=== PATIENT | female | born 1945 | race Caucasian/White ===

== ENCOUNTER → 2019-12-19 | Outpatient (CLI) | payer MEDICARE, OTHER ==
--- NOTE | 2019-12-19 11:06 | CT ---
EXAMINATION TYPE: CT lumbar spine w con DATE OF EXAM: 12/19/2019 COMPARISON: Lumbar spine x-ray December 08, 2019 HISTORY: lumbago, post op complications, screws out of place CT DLP: 602.5 mGycm Automated exposure control for dose reduction was used. CONTRAST: CT scan of the lumbar is performed with IV Contrast, patient injected with 80 mL of Isovue 300. Enhanced CT of the lumbar spine was performed. Bone and soft tissue window settings are submitted as well as coronal and sagittal reconstructions. There are presumed bilateral hypoplastic T12 ribs. Given this assumption that there are 5 lumbar-type vertebra. There is sacralization of the left L5 segment. Slight levoconvex scoliotic curvature cente red at L3 level redemonstrated. There are posterior interpedicular rods and screws at L4-L5 level yony aterally with metallic intervertebral disc material. Slight grade 1 anterolisthesis L4 on L5 and slig htly more prominent grade 1 anterolisthesis L3 on L4. Vertebral body heights are preserved. There is sclerosis at the L4-L5 endplates. Superior left L4 screw transverses the superior L4 endplate extending into the left inferior aspect o f the C3-C4 disc there is inferior well-defined lucency suggesting it has superior displaced from the surgical track by roughly 2 mm sagittal image 35 for reference. Tiny sclerotic focus right anterior L4 vertebra presumed benign bone island sagittal image 23. Incidental mild to moderate disc space narrowing and anterior spurring at T12-L1 level. Review of axial images shows mild broad-based disc bulge mildly effacing anterior thecal sac at T12-L 1 level. Axial images at L1-L2 level are felt within normal limits. Axial images at L2-L3 level show [id number] broad disc bulge mildly effacing anterior thecal sa c. There is also moderate facet degenerative change bilaterally. There is mild bilateral anterior inf erior neural foraminal narrowing. Axial images at the L3-L4 level show spondylolisthesis with moderate broad-based posterior disc protr usion. There is moderate facet arthropathy bilaterally. There is effacement of the anterior and poste rior lateral thecal sac. There is moderate right and mild left-sided anterior inferior neural foramin al narrowing seen on sagittal images. Disc herniation comes in close proximity to the extraforaminal right L3 nerve axial image 48 and sagittal image 23. Axial images at the L4-L5 level show artifact from disc material and fusion hardware. Suboptimal eval uation noted. Bilateral neural foramina felt patent. Axial images at the L5-S1 level show moderate to severe right greater than left facet arthropathy. Sp inal canal is preserved. Bilateral neural foramina are thought patent. Moderate calcified plaque of the abdominal aorta extends into iliac branch vessels. There is thin-wal led 2.0 cm cyst lower pole left kidney. There is nonspecific subcentimeter hypodense lesion medially lower pole level right kidney. No suspicious enhancement or focal fluid collection noted. IMPRESSION: Abnormally positioned superior L4 screw into L3-L4 inferior disc. Other postsurgical and degenerative changes as detailed above.
== END | disposition home or self-care (01) ==
LOC: RADCTMAIN 09:47
PROVIDERS: ATTEND Orthopaedic Surgery
DX: M47.816 Spondylosis without myelopathy or radiculopathy, lumbar region (principal); R93.7 Abnormal findings on diagnostic imaging of other parts of musculoskeletal system; Z88.8 Allergy status to other drugs, medicaments and biological substances; Z98.1 Arthrodesis status
CPT/HCPCS: 82565; 84520; 72132; 36415; Q9967

== ENCOUNTER → 2020-01-13 | Outpatient (CLI) | payer MEDICARE, OTHER ==
[2020-01-13 12:54] LABS: Basophils # (A) 0.1 k/uL (0-0.2); Basophils % (A) 1 %; Eosinophils # (A) 0.1 k/uL (0-0.7); Eosinophils % (A) 1 %; HCT 42.1 % (34.0-46.0); HGB 13.4 gm/dL (11.4-16.0); Lymphocytes # (A) 1.5 k/uL (1.0-4.8); Lymphocytes % (A) 17 %; MCH 28.1 pg (25.0-35.0); MCHC 31.9 g/dL (31.0-37.0); Mean Platelet Volume 7.3; Monocytes # (A) 0.6 k/uL (0-1.0); Monocytes % (A) 6 %; Neutrophils # (A) 6.5 k/uL (1.3-7.7); Neutrophils % (A) 74 %; Platelet Count 321 k/uL (150-450); RBC 4.78 m/uL (3.80-5.40); RDW 15.1 % (11.5-15.5); WBC 8.8 k/uL (3.8-10.6)
[2020-01-13 20:44] LABS: INR <0.91 (0.90-1.11); Prothrombin Time <9.9 sec (9.9-11.9)
[2020-01-13 22:47] LABS: Anion Gap 10.2 mmol/L (4.00-12.00); Carbon Dioxide 29.8 mmol/L (21.6-31.8); Potassium 4.3 mmol/L (3.5-5.5)
== END | disposition home or self-care (01) ==
LOC: LABWHC1 11:46
PROVIDERS: ATTEND Orthopaedic Surgery
DX: Z01.818 Encounter for other preprocedural examination (principal); M43.16 Spondylolisthesis, lumbar region; Z79.01 Long term (current) use of anticoagulants
CPT/HCPCS: 36415; 80051; 85025; 85610; 87070

== ENCOUNTER 2020-01-19 07:59 | Day surgery (SDC) | payer MEDICARE, OTHER ==
[~2020-01-19 07:59] MED LIST: PREMYELOGRAM MEDICATION REVIEW 1 EACH MISC PO ONE
[2020-01-19] MEDS ORDERED: diazePAM 5 MG TAB PO ONE (08:30)
[2020-01-19 09:04] LABS: Glucose,Whole Blood 101 mg/dL (75-99)
[2020-01-19 11:01] VITALS: RESP 18
--- NOTE | 2020-01-19 11:03 | FL ---
EXAMINATION TYPE: FL myelogram lumbosacral DATE OF EXAM: 01/19/2020 COMPARISON: CT lumbar spine 12/19/2019 HISTORY: [employer] imaging of the lumbar spine demonstrates posterior fixation rods and transpedicular screws bila terally at L4-L5 with interbody spacer device. Informed consent was obtained and all the patient's questions were answered. The L2-L3 level was loc alized under fluoroscopy. Standard sterile technique was utilized as well as appropriate local anest hesia with 1% Lidocaine. Spinal needle was introduced into the thecal sac under fluoroscopic guidanc e and 5 mL's of Isovue-M 300 was injected. The patient tolerated the procedure well and left the dep artment in stable condition. CT myelography is to follow. Total fluoroscopy time 46 seconds Total images obtained 3 IMPRESSION: Successful myelography lumbar spine.
[2020-01-19 11:24] VITALS: TEMP 98.1
--- NOTE | 2020-01-19 11:54 | CT ---
EXAMINATION TYPE: CT lumbar spine w con DATE OF EXAM: 01/19/2020 COMPARISON: CT lumbar spine 12/19/2019 HISTORY: Lumbago CT DLP: 651.70 mGycm Automated exposure control for dose reduction was used. CONTRAST: CT scan of the lumbar is performed with intrathecal contrast. 5 cc of Isovue-M 300 were injected intr athecally utilizing fluoroscopic guidance. Enhanced CT of the lumbar spine was performed. Bone and soft tissue window settings are submitted as well as coronal and sagittal reconstructions. Disc heights are normal. No acute fracture or dislocation. There is L4-L5 bilateral posterior fixatio n rods with transpedicular screws and L4-L5 interbody spacer device. Grade 1 anterolisthesis of L4 on L5. No evidence of hardware fracture or significant loosening around the screws. The conus terminate s at the level of T12. Cauda equina are unremarkable. T12-L1: Disc space narrowing with vacuum disc phenomenon. Mild posterior bulge effaces the ventral th ecal sac. No central stenosis. No foraminal encroachment. L1-L2: Mild posterior bulge effaces the ventral thecal sac. No central stenosis. No evidence for fora phyllis encroachment. L2-L3: Mild posterior disc bulge and ligamentum flavum hypertrophy. Mild central stenosis. Facet arth ropathy. No evidence for foraminal encroachment. L3-L4: Grade 1 anterolisthesis of L3 on L4. Disc space narrowing. Moderate circumferential disc bulge . Moderate to severe central stenosis. Facet arthropathy. Mild left and moderate right foraminal encr oachment. L4-L5: Posterior fixation and interbody fusion changes with. 1 anterolisthesis of L4 on L5. Severe ce ntral stenosis. Facet arthropathy. Moderate right and moderate to severe left foraminal encroachment. L5-S1: Minimal disc space narrowing. No disc herniation protrusion or central stenosis. Facet arthro christine. No evidence for foraminal encroachment. Calcified atherosclerotic disease of the abdominal aorta. No abdominal aortic aneurysm. Right adnexal 1.6 x 1.8 cm cystic lesion. Decreased osseous mineralization. IMPRESSION: 1. Posterior fusion changes of L4-L5 with no evidence of hardware fracture. Grade 1 anterolisthesis o f L4 on L5. 2. Grade 1 anterolisthesis of L3 on L4. 3. Degenerative disc disease and facet arthropathy with varying degrees of multilevel central stenosi s and neural foramina narrowing. Moderate to severe L3-L4 central stenosis. Severe L4-L5 central sten osis. 4. Right adnexal 1.8 cm cystic lesion. Dedicated pelvic ultrasound is recommended.
[2020-01-19 13:00] VITALS: BP 100/46; PULSE 71
== END 2020-01-19 14:17 | disposition home or self-care (01) ==
LOC: RADPROMAIN 07:59 → 1SOBS 10:46 → RADPROMAIN 14:17
PROVIDERS: ATTEND Orthopaedic Surgery
DX: M43.16 Spondylolisthesis, lumbar region (principal); M51.16 Intervertebral disc disorders with radiculopathy, lumbar region; M47.26 Other spondylosis with radiculopathy, lumbar region; M48.061 Spinal stenosis, lumbar region without neurogenic claudication; Z98.1 Arthrodesis status; Z79.82 Long term (current) use of aspirin; Z79.899 Other long term (current) drug therapy; Z79.02 Long term (current) use of antithrombotics/antiplatelets; I48.91 Unspecified atrial fibrillation; J44.9 Chronic obstructive pulmonary disease, unspecified; I11.9 Hypertensive heart disease without heart failure; E78.00 Pure hypercholesterolemia, unspecified; Z90.710 Acquired absence of both cervix and uterus; Z98.890 Other specified postprocedural states; Z87.891 Personal history of nicotine dependence; Z80.0 Family history of malignant neoplasm of digestive organs; Z82.49 Family history of ischemic heart disease and other diseases of the circulatory system
CPT/HCPCS: 62304; 72132; J2001; Q9967

== ENCOUNTER 2020-01-27 07:30 | Inpatient (IN) | payer MEDICARE, OTHER ==
[2020-02-03] MEDS ORDERED: ACETAMINOPHEN TAB 500 MG TAB PO ONE (05:00)
[2020-02-03] MEDS ORDERED: GABAPENTIN 300 MG CAP PO ONE (05:00)
[2020-02-03] MEDS ORDERED: TRANEXAMIC ACID 1,000 MG in SODIUM CHLORIDE 0.9% 100 ML IVPB ONE ×4 (05:00)
[2020-02-03] MEDS ORDERED: fentaNYL (PF) 50 MCG/ML 2 ML AMP IV PRN (05:32)
[2020-02-03] MEDS ORDERED: HYDROmorphone 0.5 MG/0.5 ML SYRINGE IVP PRN (05:32)
[2020-02-03] MEDS ORDERED: ONDANSETRON 4 MG/2 ML VIAL IVP ONE ×2 (05:32→18:40)
[2020-02-03] MEDS: LACTATED RINGERS 1,000 ML IV SCH (11:34)
[2020-02-03] MEDS: fentaNYL (PF) 50 MCG/ML 2 ML AMP IVP ONE ×2 (12:11→12:45)
[2020-02-03] MEDS: MIDAZOLAM 2 MG/2 ML VIAL IVP ONE ×2 (12:11→13:00)
--- NOTE | 2020-02-03 12:19 | P.HPOR ---
History of Present Illness H&P Date: 02/03/20 Chief Complaint: Low back pain, LE weakness and pain This is a pleasant 74-year-old femalewho presents for evaluation of her low back. The patient states about a year ago she had surgery with Dr. Billingsley due to her spondylolisthesis and degenerative disc disease. She states she initially did well from the surgery but then had some increasing pain and low back, and she was found to have loose screws. At that time. They were planning on doing another surgery to fix this. However, the pandemic postponed this and then she was unable to follow-up with Dr. Billingsley as he was no longer with [facility]. She states pain in her low back and some pain that goes into her legs on the Left. She denies any bowel or bladder incontinence. Denies any perineal numbness/tingling. She states no f/c/sob/cp at this time. She returns with CT scan of the lumbar spine results.Patient notes lower back pain that radiates down her left leg. Patient notes tingling and numbness down her left lower extremity. Patient tried home exercises and had no resolution of symptoms due to unable to complete certain exercises. Patient takes Tylenol as needed. she did receive her computed tomography scan however this was not a myelogram for whatever reason and so we will have to schedule this with her.she denies any bowel or bladder incontinence. There is no perineal numbness or tingling. Review of Systems 14 points review of systems completed and as stated in HPI or otherwise negative. Past Medical History Past Medical History: COPD, CVA/TIA, Fibromyalgia, GERD/Reflux, Hyperlipidemia, Hypertension, Rheumatoid Arthritis (RA), Skin Disorder, Thyroid Disorder Additional Past Medical History / Comment(s): 2 TIA's, last one in 2019. "Sometimes can't get get word out that she wants to say." Psoriasis and Psoriatic Arthritis. Queenie's Thyroiditis. History of Any Multi-Drug Resistant Organisms: None Reported Past Surgical History: Appendectomy, Heart Catheterization With Stent, Hysterectomy, Orthopedic Surgery, Tonsillectomy Additional Past Surgical History / Comment(s): 3 cardiac stents, metal plate in lower jaw, right shoulder rotator cuff repair, bilateral thumb joints replaced, carpal tunnel release left hand, cyst removed from left hand, bilateral buni onectomy, shore neuroma left foot, bilateral cataract surgery. Past Anesthesia/Blood Transfusion Reactions: Postoperative Nausea & Vomiting (PONV) Date of Last Stent Placement:: 2016, 2018 Past Psychological History: Anxiety, Depression Additional Psychological History / Comment(s): Obsessive compulsive disorder. Smoking Status: Former smoker Past Alcohol Use History: Rare Additional Past Alcohol Use History / Comment(s): Quit smoking 2001. Past Drug Use History: None Reported - Past Family History Mother Family Medical History: Cancer, Pulmonary Embolus Additional Family Medical History / Comment(s): Liver cancer. Father Family Medical History: Cancer Additional Family Medical History / Comment(s): Lung Cancer. Brother(s) Family Medical History: Cancer Additional Family Medical History / Comment(s): Prostate Cancer. Sister(s) Family Medical History: Cancer Additional Family Medical History / Comment(s): 2 of 3 sister's had cancer. Medications and Allergies Home Medications Medication Instructions Recorded Confirmed Type Abatacept/Maltose [Orencia] 0 mg IVPB DIRECTED 01/06/20 02/03/20 History Arformoterol Tartrate [Brovana] 15 mcg INHALATION BID 01/06/20 02/03/20 History Ascorbic Acid [Vitamin C] 500 mg PO DAILY 01/06/20 02/03/20 History Aspirin [Gay Aspirin EC] 81 mg PO DAILY 01/06/20 02/03/20 History Atorvastatin [Lipitor] 80 mg PO HS 01/06/20 02/03/20 History Black Cohosh 40 mg PO DAILY 01/06/20 02/03/20 History Calcium Carbonate [Calcium] 600 mg PO BID 01/06/20 02/03/20 History Clopidogrel [Plavix] 75 mg PO DAILY 01/06/20 02/03/20 History Diltiazem HCl [Diltiazem HCl 24Hr 120 mg PO QAM 01/06/20 02/03/20 History ER] FLUoxetine HCL [PROzac] 20 mg PO QAM 01/06/20 02/03/20 History Fluticasone Nasal [place] [Flonase 1 spray EA NOSTRIL DAILY PRN 01/06/20 02/03/20 History Nasal [place]] Gabapentin 300 mg PO BID 01/06/20 02/03/20 History Metoprolol Succinate (ER) [Toprol 50 mg PO QAM 01/06/20 02/03/20 History Xl] Pantoprazole [Protonix] 40 mg PO HS 01/06/20 02/03/20 History hydroCHLOROthiazide [Hydrodiuril] 25 mg PO DAILY 01/06/20 02/03/20 History Xoledronic 5 mg IVPB Q365D 01/30/20 02/03/20 History Yupelri 3 mg INHALATION HS 01/30/20 02/03/20 History Allergies Allergy/AdvReac Type Severity Reaction Status Date / Time lisinopril Allergy Swelling Verified 02/03/20 11:35 adhesive AdvReac Rash/Hives Verified 02/03/20 11:35 oxycodone [From OxyContin] AdvReac Nausea & Verified 02/03/20 11:35 Vomiting Physical Examination Osteopathic Statement: *. No significant issues noted on an osteopathic structural exam other than those noted in the History and Physical/Consult. General: Awake, alert, appropriate for age, in no acute distress. HEENT: No unusual neck masses around region of lateral neck triangle, thyroid, supraclavicular groove Heart: Regular rate and rhythm, normal S1, S2 and no murmur/gallop. Lungs: Clear to auscultation bilaterally with no use of accessory muscles. Extremities: Skin warm and dry without acute lesions, coloration, temperature, skin intact, no tenderness or erythema Integument: Hairy patches: Absent Dorsal skin dimples: Absent Cafe au lait spots: Absent Surgical incisions: lumbar incision well healed Palpation: Please see Pain drawing on Intake sheet for further detail. Midline spinal tenderness: yes E6 Paralumbar tenderness: yes E6 Parathoracic tenderness: No E6 Buttocks tenderness: No E6 Special findings: none POSTURAL and MUSCULO-SKELETAL EVALUATION: Coronal Balance: Neutral Recumbent testing: Patient is unable to lay flat on back Sagittal Balance: Neutral Shoulder Profile: level Pelvic Girdle: level Neck ROM: Unrestricted Lumbar ROM: restricted Shoulder ROM: Symmetric in abduction, ER/IR Hip ROM: Symmetric in abduction, adduction, ER/IR Knee ROM: Symmetric and intact in Flexion / extension Hands: normal Feet: normal VASCULAR STATUS : LEFT RIGHT Wrist Pulses intact intact Pedal Pulses (Dors. pedis & post.tibialis) intact intact Color normal normal Edema Absent Absent NEUROLOGIC EXAMINATION: Mental Status: Awake and alert, fully oriented, with normal attention, concentration and memory, and fluent, appropriate speech. Cranial Nerves: I: Olfactory not tested. II: Visual acuity normal, no visual field deficit noted with confrontation. III,IV: Normal pupillary reflexes & intact extraocular movements without nystagmus. V,: Intact symmetrical facial sensation. VII: Intact symmetrical facial motor movement VIII: Hearing intact. IX,X: Intact gag, swallow, & normal voice. XI: Sternocleidomastoid, trapezius function intact. XII: Tongue midline with normal movements. L'hermitte's Sign: Negative / absent Spurling'Sign: Absent bilaterally. Cubital percussion test: Absent bilaterally. Rola-Tinel sign - Carpal region: Absent bilaterally. Straight Leg Raising: Absent bilaterally. Crossed straight leg raise: negative O8 MOTOR EXAM (0-5/5, N/T) STRENGTH RIGHT LEFT Shoulder Abd (not part of the [place] score) 5 5 Elbow Flexors 5 5 Elbow Extensor 5 5 Wrist Dorsiflexors 5 5 Finger Abductor 5 5 Middle [employer] Intermediate School Principal 5 5 Hip Flexor (Not part of [place] Motor score) 5 5 Knee Flexor 5 5 Knee Extensor 5 5 Ankle dorsiflexor 5 5 Ankle plantarflexion 5 5 Extensor hallucis 5 5 REFLEXES(0-4/2, NT) RIGHT LEFT Upper Extremities 2 2 Lower Extremities 1 1 Pathological Reflexes RIGHT LEFT Selby's Absent Absent Clonus Absent Absent # Indicates mechanical impairment Sensory system (0-4, N/T) Test type RU IMANI RL LL Joint-Position 2 2 2 2 Vibration 2 2 2 2 Pain & LT sense 2 2 2 2 Dermatomal Deficit: none none none none Gait and Functional Evaluation: Ambulatory aids: Independent Romberg's test: Intact bilaterally Toe heel walk / heel-toe walk intact while maintaining satisfactory balance? No Squatting/straightening w/o assistance to a min of 60 degree knee flexion? No Single leg stance: intact Hand and finger dexterity intact bilaterally? yes Disdiadochokinesis examination negative bilaterally? yes Results XRAY: AP, lateral, flexion-extension views of the lumbar spine as well as AP pelvis are obtained and reviewed in the office today. This demonstrates postsurgical changes at the L4 5 region with L4 5 posterior fusion as well as interbody fusion. The left L4 and L5. Screws appear loose. With the L4 screw extruding into the disc space of L3, 4, as well as the L4 screw, which has migrated cranially as well as the L5 screw which is migrated cranially. The cage which is present appear stable, however, has subsided into the body and is not perfectly aligned. The right-sided screws appear well placed and well position with no migration or evidence of loosening. 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 However, this is hard to tell on x-ray. she does have mild motion of L3 on L4 which is noted as well. AP pelvis fails to demonstrate any fractures, dislocations. There is no fractures, dislocations other than noted within the lumbar spine. computed tomography scan demonstrates failed fusion at L4 5 with the right hand L4 screw extruding into the L3 4 disc space. Again the cage appears intact however there is minimal bony healing around this area there is no facet fusion that has taken place. There are no other fractures or dislocations noted at this time. There is a grade 1 spondylolisthesis of L3 on L4. There is spondylosis of L5-S1. Assessment and Plan Assessment: 1. 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 Left lower extremity radiculopathy and weakness with failed hardware L4-5 3. L3-4 spondylolisthesis Grade 1 with radiculopathy Plan: Mackenzie Manning is a 74-year-old female presenting for evaluation of continued back pain status post L4 5 fusion with hardware failure, pseudoarthrosis, left lower extremity weakness and radiculopathy. It was my pleasure to have seen and examined Mackenzie Manning In our visit today we have had a chance to go over subjective complaints, physical examination findings and treatments including the natural course history without intervention and various interventional options. Hher imaging demonstrates Pseudoarthrosis of L4 5 with failed right L4 screw extrusion into the L3 4 disc space L3 4 grade 1 spondylolisthesis at L5-S1 spondylosis with central and foraminal stenosis. On physical exam, Mackenzie Manning demonstrates left lower extremity weakness with radiculopathy tensioning signs low back pain and pseudo-arthritic symptoms. I explained to the patient that as her condition progresses it will cause further neurological deficits and eventual paralysis. Based on the patients imaging, physical exam, and the rapid progression and disabling nature of her symptoms, at this time I recommend surgery in the form or a: revision fusion of L4 5 with L3 to S1 posterior stabilized fusion with L3 4 interbody fusion and L5-S1 interbody fusion. I discussed the risk and benefits of this procedure at length with Mackenzie Crespotcher The patient and her agreed to considered pursuing the procedure abovementioned. Prior to surgery, she should follow up with her PCP (Cardio, ID, IM etc) for clearance. Questions were invited and answered, and the patient wishes to proceed as outlined below. Currently, I am recommendin.Revision fusion of L4 5 with L3 to S1 posterior stabilized fusion with L3 4 interbody fusion and possible L5-S1 interbody fusion. 2.Follow up with PCP for surgical clearance 3.Review of surgical risks and benefits as well as an educational packet on the proposed surgical procedure. 4. We discussed the risks and benefits of the procedure at length. The patient is at higher risk due to her COPD and heart conditions of having problems after surgery related to this especially due to the anesthesia and time required for the surgery. We discussed that this was not a small surgery by any means. While we would like to keep it smaller the patient is having adjacent segment problems with extrusion of the screw into the disc space as well as L5- S1 spondylosis. I do fear that if we do not fuse to her sacrum that she will continue to breakdown in this area which she will need another fusion. So if we can save her from this by doing 1 procedure I do feel at that it would benefit her in the long run. She agreed to this was comfortable with that. Risks: All surgical procedures come with inherent risks, including those related to positioning, anesthesia, intraoperative findings, and postoperative c omplications. It is important to understand that surgery does not come with any guarantee of a successful outcome as complications and adverse events are always possible. The patient was given a handout in office today discussing the surgical procedure and risks associated with the intervention, both of which were discussed with the patient. These risks include but are not limited to the foll owing: ? Experiencing same, different or even worse symptoms in back, neck, arms, or legs compared to before surgery. ? Requiring further surgery or other forms of treatment presently or at some time in the future at same or other levels of the intended spine surgery. ? On an extreme but fortunately relatively rare basis severe complication such as blindness, stroke, heart attack, temporary and/or permanent nerve injury, paralysis, coma, or may occur, sometimes without known explanation. ? Surgical complications may include but are not limited to risk of infection, fluid accumulation in the surgical dissection site, including a seroma or hematoma, that requires additional surgery, wound drainage, bleeding, new numbness or weakness, vision changes/loss, spinal fluid leakage, non-healing and/or infected incision, headaches, difficulty or inability to swallow, hoarseness, hemopneumothorax, pneumothorax, impotence, retrograde ejaculation, vaginal dryness; injury to nerves, spinal cord, blood vessels, lymphatics or other vital organs (i.e., bowel injury, injury to the great vessels); heterotopic bone formation; complications related to the hardware such as screws, rods, cages including misplaced hardware, device failure, instrumentation at the wrong spine level, hardware fracture/breakage, or hardware loosening; vertebral failure of the spinal column above or below the newly placed hardware; retained surgical instrumentations or devices and the need for further surgery. ? Medical risks of the planned spine surgery include but are not limited to generalized Infections to the whole body or local areas outside of the surgical site (sepsis), heart attack, bleeding, anaphylaxis, meningitis, seizure, epilepsy, hearing loss, burn adair, laceration of the head or other areas of the body, bruising, hypersensitivity of the skin, bladder over distension; allergic reaction; shoulder injury related to positioning; fat, blood and air clots to other areas of the body like heart, lungs, brain; failure of internal organs such as lungs, kidneys, liver and excessive bleeding. If blood transfusions are necessary, note that transfusions may cause intolerance reactions such as anaphylaxis or other complex reactions. Despite best efforts, the results of spine surgery might not heal in terms of bone, soft tissues such as skin, fascia, ligaments, and joints. Additionally, in order to achieve best possible results, spine surgery may be carried out beyond the initially planned levels and involve decompression, fusion including insertion of hardware at levels other than the original intended area of surgical interest change some portions of the procedure in order to ensure the best possible outcomes. With spine surgery and spinal fusion, there are different off label uses of instrumentation (devices, implants and hardware) as well as biological substances (bone morphogenic proteins, demineralized bone matrix) as well as using extra bone from allograft sources (i.e. cadaver bone) or autograft (iliac crest bone, ribs, or the spine itself). The patient has been given information about these practices and their inherent risks and benefits. [facility] is an educational center that serves as a training facility for neurosurgical and orthopedic spine residents and fellows. Residents are physicians who are completing their surgical intensive training following medical school. They assist in the operating room with direct supervision of the attending surgeons. [place] are surgeons who have completed their training and eligible for board certification. They have opted for an elective year of more specialized training in their field. They assist in the operating room under the supervision of the attending surgeons. Physician assistants are medically trained surgical providers who function in the outpatient, inpatient, and operating room setting under the direct supervision of the attending surgeon. [facility] has multiple operating rooms with single and overlapping rooms running daily. They currently function under the required guidelines as produced by the [facility] Finance Committee with regards to the overlapping rooms and will continue to comply with changes to this policy as they occur. The requirements include and are complied with as follows: (1) the critical portions of the overlapping rooms will not occur at the same time, (2) the attending physician will be physically present during the critical portions of the procedure and immediately available during the entire case, and (3) a back-up attending is designated should the primary attending not be immediately available. The patient has had a chance to review all the listed information, has been given print outs detailing this information, and has had all his/her questions answered to their satisfaction. It was my pleasure to have seen and examined Mackenzie Manning . In our visit today we have had a chance to go over my understanding of our patient's current condition, the natural course history without intervention and various interventional options. Questions were invited and answered, and the patient wishes to proceed as outlined above. I have seen and examined the patient for 25 minutes and we have spent more than 50% of the time in repeat and detailed counseling about the patient's condition, its natural course history with out and as much as can be predicted with surgery and re-review of various surgical treatment options. In conclusion, Mackenzie Manning requested we proceed with the above suggested surgery and are willing to accept risks and limitations of the suggested surgery as nature of the disease process and our best attempts at treatment for the condition. Thank you again for allowing us to be part of your patient's care. Please don't hesitate to contact me if you have any further questions. Signed and authenticated by: Rachid Kingsley [facility] [address] [place] [address]
[2020-02-03 12:26] LABS: INR 0.9 (<1.2); Partial Thromboplastin Time 22.9 sec (22.0-30.0); Prothrombin Time 9.3 sec (9.0-12.0)
[2020-02-03] MEDS ORDERED: LIDOCAINE 1% INJ 10MG/ML (20 ML MDV) ONE ×2 (12:35→13:33)
--- NOTE | 2020-02-03 13:20 | XR ---
EXAMINATION TYPE: XR chest 1V confirm line [facility] DATE OF EXAM: 02/03/2020 COMPARISON: NONE HISTORY: Central line placement TECHNIQUE: Single frontal view of the chest is obtained. FINDINGS: Hyperinflation suggests COPD. There is a vascular stent in coarsened interstitium. Heart s ize normal. Right-sided central line seen. There is biapical pleural thickening. There is no pneumoth orax. Arthropathy of the shoulders. IMPRESSION: 1. Central line with the tip overlying the right atrium and no sizable pneumothorax. 2. COPD and suspected chronic interstitial pulmonary fibrosis.
[2020-02-03] MEDS ORDERED: SODIUM CHLORIDE 0.9% IRRIG 1,000 ML BTL IRRIGATION ONE (13:33)
[2020-02-03] MEDS ORDERED: GLYCOPYRROLATE 0.2 MG/ML 2 ML VIAL ONE (13:33)
[2020-02-03] MEDS ORDERED: HYDROmorphone (PF) 1 MG/ML ONE (13:33)
[2020-02-03] MEDS ORDERED: TRANEXAMIC ACID 1,000 MG/10 ML VIAL ONE (13:33)
[2020-02-03] MEDS ORDERED: HEPARIN SODIUM,PORCINE 10,000 UNIT/ML 1 ML VIAL ONE (13:33)
[2020-02-03] MEDS ORDERED: SODIUM CHLORIDE 0.9% 100 ML BAG ONE (13:33)
[2020-02-03] MEDS ORDERED: fentaNYL (PF) 50 MCG/ML 2 ML AMP ONE (13:33)
[2020-02-03] MEDS ORDERED: PHENYLEPHRINE-0.9% NACL SYG 1 MG/10 ML SYRINGE ONE (13:33)
[2020-02-03] MEDS ORDERED: PROPOFOL 10 MG/ML 20 ML VIAL IV ONE (13:33)
[2020-02-03] MEDS ORDERED: MIDAZOLAM 2 MG/2 ML VIAL ONE (13:33)
[2020-02-03] MEDS ORDERED: ROCURONIUM 10 MG/ML (10 ML VIAL) IV ONE (13:33)
[2020-02-03] MEDS ORDERED: SUCCINYLCHOLINE CHLORIDE 100 MG/5 ML SYR IV ONE (13:33)
[2020-02-03] MEDS ORDERED: LACTATED RINGERS 1,000 ML IV ONE (14:30)
[2020-02-03] MEDS ORDERED: GELATIN SPONGE,ABSORB (LARGE) 1 EACH SPONGE TOPICAL ONE (14:38)
[2020-02-03] MEDS ORDERED: BUPIVACAINE (PF) 0.25% 30 ML VIAL SQ ONE (14:39)
[2020-02-03] MEDS ORDERED: THROMBIN (BOVINE) 5,000 UNIT VIAL TOPICAL ONE (14:39)
[2020-02-03] MEDS ORDERED: GELATIN SPONGE,ABSORBABLE 1 GM POWDER TOPICAL ONE (14:39)
[2020-02-03] MEDS ORDERED: VANCOMYCIN 1,000 MG VIAL MISCELLANE ONE (17:26)
[2020-02-03] MEDS ORDERED: HYDROmorphone 1 MG/ML 1 ML SYRINGE IVP PRN (17:43)
[2020-02-03] MEDS ORDERED: HYDROcodone/APAP 5-325MG 1 EACH TAB PO PRN (17:43)
[2020-02-03] MEDS ORDERED: ONDANSETRON 4 MG/2 ML VIAL IVP PRN (17:46)
[2020-02-03] MEDS ORDERED: CYCLOBENZAPRINE 10 MG TAB PO PRN (17:46)
[2020-02-03] MEDS ORDERED: SODIUM CHLORIDE 0.9% 500 ML 500 ML IV ONE (18:11)
[2020-02-03] MEDS: GABAPENTIN 300 MG CAP PO SCH (22:36)
[2020-02-03] MEDS: DOCUSATE 100 MG CAP PO SCH (22:36)
[2020-02-03] MEDS ORDERED: FLUTICASONE 50MCG/SPRAY NASAL 16GM EA NOSTRIL PRN (23:01)
[2020-02-03] MEDS: 0.9% NACL WITH KCL 20 MEQ/L 1,000 ML IV SCH (23:01)
[2020-02-03] MEDS ORDERED: IPRATROPIUM-ALBUTEROL 3 ML NEB INHALATION PRN (23:03)
[2020-02-03] MEDS ORDERED: GABAPENTIN 300 MG CAP PO SCH (23:15)
--- NOTE | 2020-02-03 23:34 | P.CONS ---
History of Present Illness - Reason for Consult Consult date: 02/03/20 medical management Requesting physician: Rachid Ayon - Chief Complaint post lamincetomy - History of Present Illness 75 year old female with hypertension and COPD patient comes in for scheduled laminectomy. due to severe poorly controlled low back pain . she tolerated procedure well. medicine requested to evaluate patient for post op management of hypertension and COPD. patient denies any chest pain or SOB. she feels cold but denies any abd pain or headache, denies any urinary symptoms. she tolerated PO intake. Review of Systems Pertinent positives as noted in HPI. All other systems were reviewed and are negative Past Medical History Past Medical History: COPD, CVA/TIA, Fibromyalgia, GERD/Reflux, Hyperlipidemia, Hypertension, Rheumatoid Arthritis (RA), Skin Disorder, Thyroid Disorder Additional Past Medical History / Comment(s): 2 TIA's, last one in 2019. "Sometimes can't get get word out that she wants to say." Psoriasis and Psoriatic Arthritis. Queenie's Thyroiditis. History of Any Multi-Drug Resistant Organisms: None Reported Past Surgical History: Appendectomy, Heart Catheterization With Stent, Hysterectomy, Orthopedic Surgery, Tonsillectomy Additional Past Surgical History / Comment(s): 3 cardiac stents, metal plate in lower jaw, right shoulder rotator cuff repair, bilateral thumb joints replaced, carpal tunnel release left hand, cyst removed from left hand, bilateral bunionectomy, shore neuroma left foot, bilateral cataract surgery. Past Anesthesia/Blood Transfusion Reactions: Postoperative Nausea & Vomiting (PONV) Date of Last Stent Placement:: 2016, 2018 Past Psychological History: Anxiety, Depression Additional Psychological History / Comment(s): Obsessive compulsive disorder. Smoking Status: Former smoker Past Alcohol Use History: Rare Additional Past Alcohol Use History / Comment(s): Quit smoking 2001. Past Drug Use History: None Reported - Past Family History Father Family Medical History: Cancer Additional Family Medical History / Comment(s): Lung Cancer. Mother Family Medical History: Cancer, Pulmonary Embolus Additional Family Medical History / Comment(s): Liver cancer. Brother(s) Family Medical History: Cancer Additional Family Medical History / Comment(s): Prostate Cancer. Sister(s) Family Medical History: Cancer Additional Family Medical History / Comment(s): 2 of 3 sister's had cancer. Medications and Allergies Home Medications Medication Instructions Recorded Confirmed Type Abatacept/Maltose [Orencia] 0 mg IVPB DIRECTED 01/06/20 02/03/20 History Arformoterol Tartrate [Brovana] 15 mcg INHALATION BID 01/06/20 02/03/20 History Ascorbic Acid [Vitamin C] 500 mg PO DAILY 01/06/20 02/03/20 History Aspirin [[place] Aspirin EC] 81 mg PO DAILY 01/06/20 02/03/20 History Atorvastatin [Lipitor] 80 mg PO HS 01/06/20 02/03/20 History Black Cohosh 40 mg PO DAILY 01/06/20 02/03/20 History Calcium Carbonate [Calcium] 600 mg PO BID 01/06/20 02/03/20 History Clopidogrel [Plavix] 75 mg PO DAILY 01/06/20 02/03/20 History Diltiazem HCl [Diltiazem HCl 24Hr 120 mg PO QAM 01/06/20 02/03/20 History ER] FLUoxetine HCL [PROzac] 20 mg PO QAM 01/06/20 02/03/20 History Fluticasone Nasal [place] [Flonase 1 spray EA NOSTRIL DAILY PRN 01/06/20 02/03/20 History Nasal [place]] Gabapentin 300 mg PO BID 01/06/20 02/03/20 History Metoprolol Succinate (ER) [Toprol 50 mg PO QAM 01/06/20 02/03/20 History Xl] Pantoprazole [Protonix] 40 mg PO HS 01/06/20 02/03/20 History hydroCHLOROthiazide [Hydrodiuril] 25 mg PO DAILY 01/06/20 02/03/20 History Xoledronic 5 mg IVPB Q365D 01/30/20 02/03/20 History Yupelri 3 mg INHALATION HS 01/30/20 02/03/20 History Allergies Allergy/AdvReac Type Severity Reaction Status Date / Time lisinopril Allergy Swelling Verified 02/03/20 11:35 adhesive AdvReac Rash/Hives Verified 02/03/20 11:35 oxycodone [From OxyContin] AdvReac Nausea & Verified 02/03/20 11:35 Vomiting Physical Exam Vitals: Vital Signs Temp Pulse Pulse Resp BP Pulse Ox 02/03/20 21:11 96 02/03/20 19:10 69 16 100/60 94 L 02/03/20 18:55 70 16 102/63 97 02/03/20 18:40 76 16 112/56 100 02/03/20 18:26 80 16 112/56 99 02/03/20 18:11 97.7 F 85 16 126/65 97 02/03/20 12:31 59 L 18 113/53 96 02/03/20 11:31 98.8 F 67 20 136/63 92 L Intake and Output 02/03/20 02/03/20 02/04/20 14:59 22:59 06:59 Intake Total 2049 250 Output Total 530 Balance 2049 - Intake: IV 2049 250 Output: Urine 180 Estimated Blood Loss 350 Other: Weight 65 kg Constitutional: No acute distress, conversant, pleasant Eyes: Anicteric sclerae, moist conjunctiva, Pupils equal round reactive to light ENMT: NC/AT Oropharynx clear, no erythema, no exudates Neck: Supple, FROM, no masses, or JVD No carotid bruits No thyromegaly Lungs: good breath sounds bilaterally , with slight rhonchi at lung basis Clear to percussion Normal respiratory effort, no accessory muscle use Cardiovascular: Heart regular in rate and rhythm, No murmurs, gallops, or rubs No peripheral edema Abdominal: Soft Nontender, no guarding, rebound or rigidity Abdomen moving with respiration Normoactive bowel sounds No hepatomegaly, No splenomegaly No palpable mass No abdominal wall hernia noted Skin: Normal temperature, tone, texture, turgor No induration No subcutaneous nodules No rash, lesions No ulcers Extremities: DELMY drain in place No digital cyanosis No clubbing Pedal pulses intact and symmetrical Radial pulses intact and symmetrical No calf tenderness Psychiatric: Alert and oriented to person, place and time Appropriate affect fair judgement Neuro Muscles Strength 4/5 in all 4 extremities Sensation to light touch grossly present throughout Cranial nerves II-XII grossly intact No focal sensory deficits Lymphatics: no palpable cervical or supraclavicular , or inguinal lymph nodes Assessment and Plan Assessment: chronic low back pain . s/p laminectomy management per orthopedics hypertension , controlled resume home meds post op was hypotensive briefly COPD , compensated breathing treatment PRN encourage to use incentive spirometry supplemental oxygen as needed follow up CBC and BMP Aspirin and Plavix both on hold post OP Thank you for allowing us to participate in the care of this patient. Do not hesitate to contact us with questions. Someone can be reached from the [facility] hospitalist group at all hours of the day at [phone].
[2020-02-03] MEDS: PANTOPRAZOLE 40 MG TABLET PO SCH (23:57)
[2020-02-04] MEDS ORDERED: SODIUM CHLORIDE 0.9% 1,000 ML IV ONE (05:01)
[2020-02-04] MEDS ORDERED: ACETAMINOPHEN TAB 325 MG TAB PO PRN (05:02)
[2020-02-04] MEDS: LACTATED RINGERS 1,000 ML IV SCH (06:10)
[2020-02-04 06:53] LABS: Basophils % (A) 0 %; Eosinophils % (A) 0 %; HCT 29.6 % (34.0-46.0); Lymphocytes # (A) 1.1 k/uL (1.0-4.8); Lymphocytes % (A) 10 %; MCH 28.9 pg (25.0-35.0); MCHC 32.2 g/dL (31.0-37.0); MCV 89.9 fL (80.0-100.0); Mean Platelet Volume 7.6; Monocytes # (A) 0.7 k/uL (0-1.0); Monocytes % (A) 7 %; Neutrophils # (A) 8.7 k/uL (1.3-7.7); Neutrophils % (A) 81 %; Platelet Count 207 k/uL (150-450); RBC 3.29 m/uL (3.80-5.40); RDW 15.7 % (11.5-15.5); WBC 10.7 k/uL (3.8-10.6)
[2020-02-04 07:17] LABS: HGB 9.5 gm/dL (11.4-16.0)
--- NOTE | 2020-02-04 07:33 | XR ---
Limited lumbar spine HISTORY: Posterior lumbar discectomy and fusion and screw placement 6 intraoperative images document the procedure
--- NOTE | 2020-02-04 07:34 | FL ---
Fluoroscopy HISTORY: Posterior lumbar fusion and discectomy 41 seconds fluoroscopy time supplied to the referring clinician. 6 intraoperative C-arm images docum ent the procedure. See dictated report from orthopedic surgery.
[2020-02-04] MEDS ORDERED: HYDROmorphone 0.5 MG/0.5 ML SYRINGE IVP PRN (08:09)
[2020-02-04] MEDS ORDERED: HYDROcodone/APAP 7.5-325MG 1 EACH TAB PO PRN (08:10)
[2020-02-04] MEDS: DOCUSATE 100 MG CAP PO SCH ×2 (08:17→20:16)
[2020-02-04] MEDS: GABAPENTIN 300 MG CAP PO SCH ×3 (08:18→20:16)
[2020-02-04] MEDS: FLUoxetine HCL 20 MG CAP PO SCH (08:18)
[2020-02-04] MEDS: polyethylene glycoL 3350 17 GM POWD.PACK PO SCH (08:19)
--- NOTE | 2020-02-04 08:33 | P.PN ---
Progress Note - Text Progress Note Date: 02/04/20 Postop day 1 Subjective: Patient seen and examined this morning in her room. She is doing okay this morning. She states that she did have some pain last night which seemed to be controlled pain medication. Per nursing she spiked a fever of 101.3 but this was controlled with medications. Whenever she gets Dilaudid her blood pressure drops and so this was held. She otherwise states she feels well she is asymptomatic she has no new numbness or tingling states that she still has some pain in her left foot on the medial portion however it is somewhat better. She states back pain but it is fairly well controlled. She denies any other chills shortness of breath chest pain headache nausea or vomiting. Objective: GEN: AOX3, NAD VSS Inspection: Appears well nourished. Palpation: Normal pain with palpation around the incision no fluctuance Motor: 5/5 shoulder abd/EF/EE/WF/intrinsics 5/5 DF/PF/EHL/FHL/HF/KE/KF 4+ dorsiflexion plantar flexion on the left however this is likely due to effort Reflexes: 2/4 DTR all upper and LE Sensation intact to light touch in C5-T1 as well as L2-S1 distribution Selby's: Negative bilaterally Clonus: Negative bilaterally Babinski: Negative bilaterally Incision: Clean and dry Dressing: Clean dry and intact no shadowing Drain: Approximately 50 mL and drain this morning of serosanguineous discharge. Assessment: 74-year-old female postop day 1 L3 to L5 revision fusion for L4 5 pseudoarthrosis and hardware failure, doing well Plan: 1. Appreciate medicine management. 2. Pain control: Decreased allotted to 0.5 every 3 hours. Increased [place] 7.5 mg 3. Aggressive ambulation protocol. OOB with all meals. OOB or in chair 4-5x daily. 4. PT/OT 5. Patient has brace can wear when up and about but not needed 6. Postoperative antibiotics 7. TEDs, SCDs, mechanical ppx. OK for heparin today. Early ambulation is best. 8. GI ppx. 9. Computed tomography scan of lumbar spine ordered for today 10. Trend labs 11. ELOS: 1-2 days disposition will be to home with home health care although the patient has minimal help at home versus subacute rehab
[2020-02-04] MEDS: 0.9% NACL WITH KCL 20 MEQ/L 1,000 ML IV SCH ×2 (08:34→20:16)
[2020-02-04] MEDS ORDERED: METOPROLOL SUCCINATE (ER) 50 MG TAB.ER.24H PO SCH (09:00)
[2020-02-04] MEDS ORDERED: DILTIAZEM CD 120 MG CAP.ER.24H PO SCH (09:00)
--- NOTE | 2020-02-04 09:03 | CT ---
EXAMINATION TYPE: CT lumbar spine wo con DATE OF EXAM: 02/04/2020 COMPARISON: 02/06/2020 HISTORY: Post op lumbar fusion CT DLP: 917.60 mGycm CONTRAST: None TECHNIQUE: CT of the lumbar spine is performed on a spiral scan at 3 mm thick sections. Reconstructed images are performed in the coronal and sagittal planes. FINDINGS: T10-11, T11-12: No focal disc herniation or significant disc bulge. No spinal canal stenosis or neura l foraminal stenosis. T12-L1: There is narrowing of disc height. Vacuum disc phenomenon is present. Minimal residual disc b ulge has anterior thecal sac contact. No stenosis is present. Neural foramen are patent. L1-L2: No focal disc herniation or significant disc bulge is evident. No spinal canal stenosis or n eural foraminal stenosis is present L2-L3: There is a right paracentral disc bulging with mild to moderate anterior thecal sac impression . 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 No AP spinal canal stenosis is present. Neural foramen are patent. L3-L4: Beam hardening artifact from pedicle screws limits evaluation through the levels. No obvious s cherise canal stenosis is present. Minimal anterior listhesis of L4 3 anterior on L4 may be present. Th is is stable. L4-L5: Beam hardening artifact limits evaluation at this level. No obvious stenosis is evident. Disc spacer is present. L5-S1: No focal disc herniation or significant disc bulge is evident. No spinal canal stenosis or n eural foraminal stenosis is present Vertebral body alignment is unchanged from comparison. IMPRESSION: 1. Exam appears stable from comparison. 2. Disc bulging L2-3 with mild to moderate anterior thecal sac compression. 3. Limited evaluation L3-4, L4-5 due to beam hardening artifact from hardware. 4. Disc bulging T12-L1 similar to prior exam.
[2020-02-04 09:27] LABS: African American GFR (CKD) 64.7 (60.0-200.0); Anion Gap 7.3 mmol/L (4.00-12.00); Calcium 7.3 mg/dL (8.7-10.3); Carbon Dioxide 21.7 mmol/L (21.6-31.8); Non-African American GFR(CKD) 55.8 (60.0-200.0); Potassium 3.8 mmol/L (3.5-5.5)
[2020-02-04] MEDS: HYDROcodone/APAP 7.5-325MG 1 EACH TAB PO PRN ×2 (11:07→20:15)
[2020-02-04 11:23] LABS: Glucose,Whole Blood 84 mg/dL (75-99)
--- NOTE | 2020-02-04 14:33 | P.PN ---
Subjective Progress Note Date: 02/04/20 Patient was seen and evaluated by me this morning. She had a fever last night of 101.2 on her blood pressure was low requiring IV fluid bolus of normal saline. Patient herself is feeling fairly well. She denies any specific concerns or complaints. Fever resolved this morning. Blood pressure is better but still on the lower side. There was no lactic acid checked overnight. Objective - Vital Signs Vital signs: Vital Signs Temp 101.2 F H 02/04/20 04:45 Pulse 85 02/04/20 04:45 Resp 16 02/04/20 08:00 BP 97/51 02/04/20 04:45 Pulse Ox 95 02/04/20 04:45 Intake & Output 02/03/20 02/04/20 02/04/20 18:59 06:59 18:59 Intake Total 2300 1150 Output Total 500 90 120 Balance 1800 -90 1030 Weight 65 kg Intake: IV 2300 Intake, IV Titration 850 Amount 0.9% NaCl with KCl 20 Meq 800 /l 1,000 ml @ 100 mls/hr IV .Q10H [facility] Rx#: [id number] ceFAZolin 2 gm In Sodium 50 Chloride 0.9% 50 ml @ 100 mls/hr IVPB Q8H [facility] Rx#: [id number] Oral 300 Output: Drainage 60 120 Lower 60 120 Urine 150 30 Estimated Blood Loss 350 Other: Voiding Method Indwelling Catheter Indwelling Catheter # Bowel Movements 0 - Exam General: The patient is awake and alert, in no distress Eye: there is normal conjunctiva bilaterally. Neck: The neck is supple, there is no JVD. Cardiovascular: Normal S1-S2, no S3-S4, no murmurs. Respiratory: Lungs clear to auscultation bilaterally Gastrointestinal: Abdomen is soft, nontender Musculoskeletal: There is no pedal edema. Neurological:. Speech is normal. Skin: Skin is warm and dry - Labs CBC & Chem 7: 02/04/20 06:37 02/04/20 06:37 Labs: Abnormal Lab Results - Last 24 Hours (Table) 02/04/20 02/04/20 Range/Units 06:37 06:37 WBC 10.7 H (3.8-10.6) k/uL RBC 3.29 L (3.80-5.40) m/uL Hgb 9.5 L D (11.4-16.0) gm/dL Hct 29.6 L (34.0-46.0) % RDW 15.7 H (11.5-15.5) % Neutrophils # 8.7 H (1.3-7.7) k/uL Chloride 110 H (96-109) mmol/L Est GFR (CKD-EPI)NonAf 55.8 L (60.0-200.0) Calcium 7.3 L (8.7-10.3) mg/dL Assessment and Plan Assessment: This is a 74-year-old female with past medical history noted below who was admitted to the hospital for laminectomy. I was asked to see her for medical management. Below is a list of her medical problems. 1. Postoperative day #1 status post L3 to L5 revision fusion. Postoperative care, pain management, and DVT prophylaxis per primary team. 2. Sepsis with septic shock improved with IV fluid bolus. I would check lactic acid. Source of infection not clear. Patient denies any URI symptoms. I would check urinalysis. Postoperative CT of the lumbar spine showed stable findings. We will continue to monitor closely. 3. Essential hypertension: Discontinue home dose of metoprolol and Cardizem given hypotension. Continue telemetry monitoring. Would monitor blood pressure closely. 4. Underlying COPD with no evidence of exacerbation
--- NOTE | 2020-02-04 17:41 | P.OP ---
Date of Procedure: 02/03/20 Preoperative Diagnosis: 1. 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 Left lower extremity radiculopathy and weakness with failed hardware L4-5 3. L3-4 spondylolisthesis Grade 1 with radiculopathy Postoperative Diagnosis: 1. 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 Left lower extremity radiculopathy and weakness with failed hardware L4-5 3. L3-4 spondylolisthesis Grade 1 with radiculopathy Procedure(s) Performed: 1. Removal of hardware L4-5 due to pseudoarthrosis 2. L3-5 Posterolateral instrumented fusion 3. L3-4 interbody fusion with 4. L3-4 Intradiscal osteotomy for correction of deformity (3 column osteotomy) 5. L3-5 laminectomy, medial facetectomy and decompression. Implants: [employer] [place] 5.5 and 6.5 mm screws x1 prolift 10x16 mm 12 deg lordotic cage expandable [place] [employer]ograft [employer]4 Anesthesia: GETA Surgeon: Rachid Ayon Packaging Coordinator #1: Ciro Lara (BRAYAN Mart was present for the duration of the case and was necessary due to the complexity of the case. ) Estimated Blood Loss (ml): 350 (122 cc back from cell saver) IV fluids (ml): 1,600 Urine output (ml): 150 Pathology: none sent Condition: stable Disposition: PACU Indications for Procedure: This is a pleasant 74-year-old femalewho presents for evaluation of her low back. The patient states about a year ago she had surgery with Dr. Billingsley due to her spondylolisthesis and degenerative disc disease. She states she initially did well from the surgery but then had some increasing pain and low back, and she was found to have loose screws. At that time. They were planning on doing another surgery to fix this. However, the pandemic postponed this and then she was unable to follow-up with Dr. Billingsley as he was no longer with [facility]. She states pain in her low back and some pain that goes into her legs on the Left. She denies any bowel or bladder incontinence. Denies any perineal numbness/tingling. She states no f/c/sob/cp at this time. She returns with CT scan of the lumbar spine results.Patient notes lower back pain that radiates down her left leg. Patient notes tingling and numbness down her left lower extremity. Patient tried home exercises and had no resolution of symptoms due to unable to complete certain exercises. Patient takes Tylenol as needed. she did receive her computed tomography scan however this was not a myelogram for wha tever reason and so we will have to schedule this with her.she denies any bowel or bladder incontinence. There is no perineal numbness or tingling. Operative Findings: Severe stenosis L3-L5. Stable L5-S1. Pseudoarthrosis L4-5 with loose hardware Description of Procedure: Please see dictated Operative note.
[2020-02-04] MEDS: ATORVASTATIN 80 MG TAB PO SCH (20:16)
[2020-02-04] MEDS: PANTOPRAZOLE 40 MG TABLET PO SCH (20:16)
[2020-02-05] MEDS: 0.9% NACL WITH KCL 20 MEQ/L 1,000 ML IV SCH ×2 (02:54→08:57)
[2020-02-05] MEDS: HYDROcodone/APAP 7.5-325MG 1 EACH TAB PO PRN ×2 (04:38→15:53)
[2020-02-05 04:43] LABS: Appearance,Urine Clear (Clear); Bilirubin,Urine Negative (Negative); Blood,Urine Moderate (Negative); Color,Urine Light Yellow; Glucose,Urine (UA) 3+ (Negative); Leukocyte Esterase,Urine Negative (Negative); Mucus,Urine Rare /hpf; Nitrite,Urine Negative (Negative); PH, Urine 5.5 (5.0-8.0); Protein,Urine Trace (Negative); RBC,Urine 7 /hpf (0-5); Specific Gravity,Urine 1.013 (1.001-1.035); Urobilinogen,Urine <2.0 mg/dL (<2.0); WBC,Urine 2 /hpf (0-5)
[2020-02-05 04:54] LABS: Ketones,Urine 2+ (Negative)
--- NOTE | 2020-02-05 05:06 | OP ---
OPERATIVE REPORT DATE OF SERVICE: 02/03/2020 PREOPERATIVE DIAGNOSIS: 1. 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 2. Left lower extremity radiculopathy and weakness with failed hardware, L4-5. 3. L3-4 spondylolisthesis, grade 1 with radiculopathy. POSTOPERATIVE DIAGNOSIS: 1. 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 2. Left lower extremity radiculopathy and weakness with failed hardware, L4-5. 3. L3-4 spondylolisthesis, grade 1 with radiculopathy. PROCEDURES PERFORMED: 1. Removal of hardware, L4-5 due to pseudoarthrosis and hardware failure. 2. L3-5 posterior lateral instrumented fusion. 3. L3-4 interbody fusion. 4. L3-4 intradiscal osteotomy for correction of deformity (3 column osteotomy). 5. L3-5 laminectomy, medial facetectomy and decompression. IMPLANTS: 1. Azeem Wilkinson 5.5 and 6.5 mm screws. 2. ProLift 10 x 16 mm, 12 degree lordotic cage, expandable. 3. Vesuvius. 4. Autograft. 5. Bio4. ANESTHESIA: General endotracheal. SURGEON: Dr. Rachid Ayon. OPERATIONS VOCATIONAL INSTRUCTOR: BRAYAN Mart. BRAYAN Mart was present for the duration of the case and was necessary due to complexity of the case. ESTIMATED BLOOD LOSS: 350 mL; 122 mL were given back from [employer]. IV FLUIDS: 1600. URINE OUTPUT: 150. PATHOLOGY: None. CONDITION: Stable. DISPOSITION: PACU. INDICATIONS FOR PROCEDURE: This is a pleasant 74-year-old female who presents for evaluation of her low back. The patient states about a year ago she had surgery Dr. Billingsley due to her spondylolisthesis and degenerative disc disease. She states that initially she did well from surgery, but then had some increasing pain and low back pain, and was found to have loose screws. At that time, they were planning on doing another surgery to fix this. However, the pandemic postponed this and she was unable to follow up with Dr. Billingsley, who is now no longer available. She states that her low back pain and pain that goes down into her legs on the left. She denies any bowel or bladder incontinence at this time. The patient denies any perineal numbness or tingling at this time. She states no fevers, chills, shortness of breath or chest pain. She returned for evaluation of a CT of her spine. The patient notes that her pain continues to radiate down her left leg and she would like something done. The patient was seen, evaluated in the preoperative area. All preoperative protocols were followed. The patient was seen and evaluated by the department of anesthesia and deemed fit for surgery. She was given an A-line as well as a central line in the preoperative area by the department of anesthesia. Before this, the risks and benefits were discussed with the patient again which are documented elsewhere in the chart. She is willing to proceed with the procedure. She was given a weight based dose of Ancef preoperatively IVPB x1. She was willing to proceed with the procedure. OPERATIVE REPORT: The patient was then transferred to the operative suite by the department of anesthesia. She was drifted off to sleep by the department of anesthesia using general endotracheal intubation. She tolerated this well. Once confirmation of lines and ventilation, the patient was transferred to a prone [facility] table very carefully. All bony prominences including wrist, elbows, axilla, chest, hips, thighs, and genitalia were padded very well. Prior to this, a Siddiqui was placed atraumatically by the nursing staff. SCDs were then placed on bilateral lower extremities and were contracted. Her arms were placed in the up and out position 90, 90 and were confirmed in good position and well padded. Once in good position and confirmed again, good ventilation and lines running, the patient's lumbar spine was exposed. 1010 were placed outlining the incision site. C-arm was used to bio robert the patient and confirm level for incision which was marked with a skin marker. The patient was then prepped and draped in normal sterile fashion. Time-out was performed. All parties in agreement to the procedure to be performed. A skin knife was used to make incision over the previously marked area. Dissection was taken down to the lumbosacral fascia, which was identified and cleaned. Meticulous hemostasis was performed. A midline fasciotomy was made over the previously marked area. Subperiosteal dissection was taken down the lamina of L3, L4 and L5 as well as L5 and S1. It was noted that the L5-S1 region was non mobile and this was essentially auto fused in this area. Once the dissection had ensued and the hardware was exposed, it was noted that the hardware was extremely mobile and loose. There is also extreme laxity within the L3-4 region. The old hardware was then removed by first removing the set screws, the rods and then following with the screws. A ball-tipped Feeler was used to confirm the position of the previous screw tracts. All of them were acceptable, except for the screw on the left-hand side at L4 which had fractured through the superior portion of the endplate of L4. Under lateral fluoroscopy, L3 screws were placed with a drill and tap technique. After each step, a ball-probe Feeler was used to confirm 4 almanza of the pedicle and no medial breach. The screw on the left-hand side at L4 was replaced using at the starting point and lateral fluoroscopy and confirmed to be in good position on AP fluoroscopy. The remainder of the screws were up sized and replaced. The patient's pedicles were extremely small and so they only accommodated a certain size screw without causing medial breach. All the screws were then tested using intraoperative neuromonitoring and all screws tested above 8 milliamps. Once confirmation of screws had been obtained, attention was drawn to the decompressive portion of the case. An L3 to L5 laminectomy was performed using a high-speed bur. Attention was then drawn to the L3-4 region were of any complete facetectomy was performed bilaterally to allow for exposure of the nerve roots as well as the disc space. Visualization of the exiting nerve root was excellent. The disc space was accessed and visualized. The osteotome was used to perform a 3 column osteotomy in the form of intradiscal osteotomy on the left-hand side of L3-4 as well as the right-hand side of L3-4. This allowed for good mobilization of this level. Disc material was removed using sequential shaving all the way up to a 12 shaver using lateral fluoroscopy as guidance. Once the endplates had been cleared of any cartilage and disc material, a cage was selected. A ProLift 10-16 mm, 12 degree lordotic cage was selected. The disc space was irrigated and autograft and allograft were placed anterior to the cage. The endplates were roughened using bear claws. Once this had been obtained, the cage was then carefully impacted into place while taking care to protect the exiting nerve root as well as the dural sac. Under lateral fluoroscopy, the cage was impacted into good position. Then under lateral fluoroscopy, the cage was expanded until the appropriate height was obtained. This was then locked into place. The trailhead construction worker was removed. The cage was confirmed to be stable and in good position. The nerve root and dura were completely intact. Attention was then drawn to placement of the rods. The rods were measured and selected and placed. Set caps were then placed and final tightened into position. A crosslink was then selected and placed over this area at L4-5. This was then final tightened into position as well. Final x- ray imaging confirmed good position of screws as well as cage. There were no changes on intraoperative neuromonitoring throughout the case. The wound was then copiously irrigated first with Irrisept followed by 3 L of normal sterile saline. Surgicel was then placed over the dura. The posterior lateral gutters were accessed. The TPs were decorticated and autograft and allograft were placed in the posterior lateral gutters. The facets were then drilled as well as the sacral ala. This allowed for continued fusion in these areas. Bone graft was placed in these areas as well. Drain was then placed deep to the fascia, a small round Christian drain. The fascia was then closed with a #1 Vicryl followed by a running unidirectional Stratafix. Subcu was then closed with 2- 0 Vicryl followed by chito in the skin. This was then cleaned with alcohol and glue placed over the incision. It was then dressed sterilely with sterile Optifoam dressing. The drain was then sewn into place with a 2-0 Vicryl and a 4 x 4 and Tegaderm were placed over this area. The patient was then carefully transferred back to her hospital bed. The drain continued to hold suction, was in good position. The patient was then awakened by the department of anesthesia, having tolerated the procedure very well with no complications. She was extubated and transferred to the postoperative care unit in stable condition. IONM signals remained stable through the entire procedure and final signals were essentially unchanged from baseline. MMODL / IJN: [id number] / RICARDO
[2020-02-05 05:53] LABS: Glucose,Whole Blood 80 mg/dL (75-99)
[2020-02-05 05:53] LABS: Basophils % (A) 0 %; Eosinophils % (A) 0 %; HCT 29.8 % (34.0-46.0); HGB 9.6 gm/dL (11.4-16.0); Lymphocytes # (A) 0.8 k/uL (1.0-4.8); Lymphocytes % (A) 7 %; MCH 29.2 pg (25.0-35.0); MCHC 32.3 g/dL (31.0-37.0); MCV 90.4 fL (80.0-100.0); Mean Platelet Volume 7.7; Monocytes # (A) 0.7 k/uL (0-1.0); Monocytes % (A) 6 %; Neutrophils # (A) 10.4 k/uL (1.3-7.7); Neutrophils % (A) 86 %; Platelet Count 187 k/uL (150-450); RBC 3.29 m/uL (3.80-5.40); RDW 15.6 % (11.5-15.5); WBC 12.1 k/uL (3.8-10.6)
[2020-02-05] MEDS: LACTATED RINGERS 1,000 ML IV SCH (06:03)
[2020-02-05] MEDS ORDERED: VANCOMYCIN IV PER PHARMACY 1 EACH MISC MISCELLANE PRN (07:58)
[2020-02-05] MEDS: DOCUSATE 100 MG CAP PO SCH ×2 (08:42→19:39)
[2020-02-05] MEDS: GABAPENTIN 300 MG CAP PO SCH ×3 (08:43→19:39)
[2020-02-05] MEDS: polyethylene glycoL 3350 17 GM POWD.PACK PO SCH (08:43)
[2020-02-05] MEDS: FLUoxetine HCL 20 MG CAP PO SCH (08:43)
[2020-02-05] MEDS ORDERED: VANCOMYCIN 1,500 MG in SODIUM CHLORIDE 0.9% 250 ML IVPB ONE (09:00)
[2020-02-05] MEDS: IPRATROPIUM-ALBUTEROL 3 ML NEB INHALATION SCH ×4 (09:35→19:26)
[2020-02-05 09:50] LABS: African American GFR (CKD) 84.2 (60.0-200.0); Anion Gap 7.2 mmol/L (4.00-12.00); BUN/Creat Ratio 16.25 Ratio (12.00-20.00); Calcium 7.4 mg/dL (8.7-10.3); Carbon Dioxide 19.8 mmol/L (21.6-31.8); Non-African American GFR(CKD) 72.6 (60.0-200.0); Potassium 4.1 mmol/L (3.5-5.5)
--- NOTE | 2020-02-05 11:14 | XR ---
EXAMINATION TYPE: XR chest 1V portable DATE OF EXAM: 02/05/2020 COMPARISON: 02/03/2020 HISTORY: Shortness of breath TECHNIQUE: Single frontal view of the chest is obtained. FINDINGS: No sizable pneumothorax. Underlying COPD and chronic interstitial lung disease noted with left lower lobe infiltrate. Arthropathy of the shoulders and diffuse osteopenia. Atherosclerotic ramirez ge aorta. Heart size stable. Vascular stent again noted. IMPRESSION: 1. No evidence of pneumothorax. Persistent COPD and findings suggestive of chronic interstitial lung disease. 2. Left lower lobe atelectasis versus early infiltrate.
--- NOTE | 2020-02-05 11:20 | P.PN ---
Progress Note - Text Progress Note Date: 02/05/20 Postop day 2 Subjective: Patient seen and examined this morning in her room. She is doing okay this morning. She has been diagnosed with Sepsis due to wbc count and fever. She does not appear septic. Fevers are fairly normal post op and are usually due to atelectasis or need for BM however her urinalsys is suspect although she denies any issues with this. She currently has a amaral. They are working up with CXR, cultures and breathing treatments due to some wheezing. Pt is otherwise doing well. He back is fairly asymptomatic and her legs feel better today. She denies any new numbness/tingling. She was only up to chair x 1 yesterday. She needs to move more. Objective: GEN: AOX3, NAD VSS Inspection: Appears well nourished. Palpation: Normal pain with palpation around the incision no fluctuance Motor: 5/5 shoulder abd/EF/EE/WF/intrinsics 5/5 DF/PF/EHL/FHL/HF/KE/KF 4+ dorsiflexion plantar flexion on the left however this is likely due to effort Reflexes: 2/4 DTR all upper and LE Sensation intact to light touch in C5-T1 as well as L2-S1 distribution Selby's: Negative bilaterally Clonus: Negative bilaterally Babinski: Negative bilaterally Incision: Clean and dry Dressing: Clean dry and intact no shadowing Drain: Approximately 50 mL and drain this morning of serosanguineous discharge. Assessment: 74-year-old female postop day 1 L3 to L5 revision fusion for L4 5 pseudoarthrosis and hardware failure, doing well Plan: 1. Appreciate medicine management. 2. Pain control adequate at this time 3. Aggressive ambulation protocol. OOB with all meals. OOB or in chair 4-5x daily. 4. PT/OT 5. Patient has brace can wear when up and about but not needed 6. Postoperative antibiotics 7. TEDs, SCDs, mechanical ppx. OK for heparin today. Early ambulation is best. 8. GI ppx. 9. CT reviewed. All hardware in good position. 10. Trend labs 11. ELOS: 1-2 days disposition will be to home with home health care although the patient has minimal help at home versus subacute rehab
[2020-02-05] MEDS ORDERED: methylPREDNISolone SOD SUCCI 125 MG/2 ML VIAL IV STA (12:32)
--- NOTE | 2020-02-05 12:38 | P.PN ---
Subjective Progress Note Date: 02/05/20 Patient had another 2 documented fever this morning. She remained tachycardic. Her oxygen requirement increased overnight and she is currently on 4 L of oxygen. Patient informed me that she does not wear oxygen at home. She is more short of breath today. She said that she is having more frequent cough that is productive of white sputum. She was having chills overnight. Objective - Vital Signs Vital signs: Vital Signs Temp 98.8 F 02/05/20 12:06 Pulse 121 H 02/05/20 12:27 Resp 20 02/05/20 12:27 BP 137/70 02/05/20 12:06 Pulse Ox 94 L 02/05/20 12:06 Intake & Output 02/04/20 02/05/20 02/05/20 18:59 06:59 18:59 Intake Total 1150 Output Total 120 800 Balance 1030 -800 Intake: Intake, IV Titration 850 Amount 0.9% NaCl with KCl 20 Meq 800 /l 1,000 ml @ 100 mls/hr IV .Q10H [facility] Rx#: [id number] ceFAZolin 2 gm In Sodium 50 Chloride 0.9% 50 ml @ 100 mls/hr IVPB Q8H [facility] Rx#: [id number] Oral 300 Output: Drainage 120 Lower 120 Urine 800 Other: Voiding Method Indwelling Catheter Indwelling Catheter Indwelling Catheter - Exam General: The patient is awake and alert, in no distress Eye: there is normal conjunctiva bilaterally. Neck: The neck is supple, there is no JVD. Cardiovascular: Normal S1-S2, no S3-S4, no murmurs. Respiratory: Lungs are diminished with end-expiratory wheezing Gastrointestinal: Abdomen is soft, nontender Musculoskeletal: There is no pedal edema. Neurological:. Speech is normal. Skin: Skin is warm and dry - Labs CBC & Chem 7: 02/05/20 05:34 02/05/20 05:34 Labs: Abnormal Lab Results - Last 24 Hours (Table) 02/05/20 02/05/20 02/05/20 Range/Units 04:30 05:34 05:34 WBC 12.1 H (3.8-10.6) k/uL RBC 3.29 L (3.80-5.40) m/uL Hgb 9.6 L (11.4-16.0) gm/dL Hct 29.8 L (34.0-46.0) % RDW 15.6 H (11.5-15.5) % Neutrophils # 10.4 H (1.3-7.7) k/uL Lymphocytes # 0.8 L (1.0-4.8) k/uL Chloride 112 H (96-109) mmol/L Carbon Dioxide 19.8 L (21.6-31.8) mmol/L Calcium 7.4 L (8.7-10.3) mg/dL Urine Protein Trace H (Negative) Urine Glucose (UA) 3+ H (Negative) Urine Ketones 2+ H (Negative) Urine Blood Moderate H (Negative) Urine RBC 7 H (0-5) /hpf Urine Mucus Rare H (None) /hpf Assessment and Plan Assessment: This is a 74-year-old female with past medical history noted below who was admitted to the hospital for laminectomy. I was asked to see her for medical management. Below is a list of her medical problems. 1. Postoperative day #2 status post L3 to L5 revision fusion. Postoperative care, pain management, and DVT prophylaxis per primary team. 2. Sepsis with septic shock improved with IV fluid bolus. Lactic acid is normal. Possibly attributed to developing pneumonia. Patient had a central line that was removed this morning. Started on IV vancomycin Awaiting blood culture. Influenza and Covid19 screen pending. 3. Left lower lobe pneumonia, started on ceftriaxone and azithromycin. 4. Acute COPD exacerbation. DuoNeb's every 4 hours. One-time dose of IV Solu- Medrol 80 mg now and prednisone 40 mg daily starting tomorrow for a short course. Inhaled steroids twice daily. 5. Acute hypoxic respiratory failure secondary to #3 and 4. Wean off O2 as tolerated for O2 sat greater than 90% 6. Essential hypertension: Discontinue home dose of metoprolol and Cardizem given hypotension. Continue telemetry monitoring. Would monitor blood pressure closely. 7. CODE STATUS: Patient would like to be DO NOT RESUSCITATE/DO NOT INTUBATE. Discussed today with patient with her nurse at bedside. Today, I reviewed her medication list and lab work results. Patient is unstable for discharge. Continue management as above. Repeat lab work in the morning.
[2020-02-05] MEDS: AZITHROMYCIN 500 MG TAB PO SCH (14:05)
[2020-02-05 15:33] LABS: SARS-CoV-2 RNA Rapid Abbott Not Detected (Not Detectd)
[2020-02-05] MEDS: HEPARIN SODIUM,PORCINE 5,000 UNIT/ML 1 ML VIAL SQ SCH ×2 (15:54→22:22)
[2020-02-05] MEDS: BUDESONIDE 0.5 MG/2 ML NEBU INHALATION SCH (19:26)
[2020-02-05] MEDS: PANTOPRAZOLE 40 MG TABLET PO SCH (19:39)
[2020-02-05] MEDS: ATORVASTATIN 80 MG TAB PO SCH (19:41)
[2020-02-06] MEDS: IPRATROPIUM-ALBUTEROL 3 ML NEB INHALATION SCH ×6 (01:15→20:15)
[2020-02-06] MEDS: HYDROcodone/APAP 7.5-325MG 1 EACH TAB PO PRN ×4 (02:35→23:30)
[2020-02-06] MEDS: LACTATED RINGERS 1,000 ML IV SCH (04:57)
[2020-02-06 05:57] LABS: Basophils % (A) 0 %; Eosinophils % (A) 0 %; HCT 27.3 % (34.0-46.0); Lymphocytes # (A) 0.6 k/uL (1.0-4.8); Lymphocytes % (A) 7 %; MCH 29.3 pg (25.0-35.0); MCV 88.6 fL (80.0-100.0); Mean Platelet Volume 7.3; Monocytes # (A) 0.8 k/uL (0-1.0); Monocytes % (A) 8 %; Neutrophils # (A) 8.2 k/uL (1.3-7.7); Neutrophils % (A) 83 %; Platelet Count 179 k/uL (150-450); RBC 3.08 m/uL (3.80-5.40); RDW 15.5 % (11.5-15.5); WBC 9.9 k/uL (3.8-10.6)
[2020-02-06] MEDS: BUDESONIDE 0.5 MG/2 ML NEBU INHALATION SCH ×2 (07:20→20:15)
--- NOTE | 2020-02-06 07:38 | P.PN ---
Progress Note - Text Progress Note Date: 02/06/20 Postop day 3 Subjective: Pt s/e this AM. No issues overnight. Still on O2 NC. States she feels well and that her breathing is better. Denies any f/c/sob/cp at this time. Denies any new numbness/tingling or pain. States she did not get up yesterday however and that PT did not come by. States flatulence but no BM yet. Chen removed this AM. She needs to move and get out of bed aggressively. She needs to be up for all meals today and out of bed at least 5x today. No laying in bed. Objective: GEN: AOX3, NAD VSS Inspection: Appears well nourished. Palpation: Normal pain with palpation around the incision no fluctuance Motor: 5/5 shoulder abd/EF/EE/WF/intrinsics 5/5 DF/PF/EHL/FHL/HF/KE/KF 4+ dorsiflexion plantar flexion on the left however this is likely due to effort Reflexes: 2/4 DTR all upper and LE Sensation intact to light touch in C5-T1 as well as L2-S1 distribution Selby's: Negative bilaterally Clonus: Negative bilaterally Babinski: Negative bilaterally Incision: Clean and dry Dressing: Clean dry and intact no shadowing Drain: Approximately 50 mL and drain this morning of serosanguineous discharge. Assessment: 74-year-old female postop day 1 L3 to L5 revision fusion for L4 5 pseudoarthrosis and hardware failure, doing well Plan: 1. Appreciate medicine management. 2. Pain control adequate at this time 3. Aggressive ambulation protocol. OOB with all meals. OOB or in chair 4-5x daily. 4. PT/OT 5. Patient has brace can wear when up and about but not needed 6. Postoperative antibiotics 7. TEDs, SCDs, mechanical ppx. OK for heparin today. Early ambulation is best. 8. GI ppx. 9. CT reviewed. All hardware in good position. 10. Trend labs 11. ELOS: 1-2 days disposition will be to home with home health care although the patient has minimal help at home versus subacute rehab
[2020-02-06] MEDS: HEPARIN SODIUM,PORCINE 5,000 UNIT/ML 1 ML VIAL SQ SCH ×2 (07:52→21:09)
[2020-02-06] MEDS: GABAPENTIN 300 MG CAP PO SCH ×3 (07:52→21:09)
[2020-02-06] MEDS: FLUoxetine HCL 20 MG CAP PO SCH (07:52)
[2020-02-06] MEDS: DOCUSATE 100 MG CAP PO SCH ×2 (07:52→21:09)
[2020-02-06] MEDS: predniSONE 20 MG TAB PO SCH (07:52)
[2020-02-06] MEDS: polyethylene glycoL 3350 17 GM POWD.PACK PO SCH ×2 (07:53→08:02)
[2020-02-06] MEDS: AZITHROMYCIN 500 MG TAB PO SCH (07:53)
[2020-02-06] MEDS ORDERED: VANCOMYCIN 1,250 MG in SODIUM CHLORIDE 0.9% 250 ML IVPB SCH (08:00)
[2020-02-06 09:27] LABS: African American GFR (CKD) 98.9 (60.0-200.0); Anion Gap 5.3 mmol/L (4.00-12.00); BUN/Creat Ratio 17.14 Ratio (12.00-20.00); Calcium 7.8 mg/dL (8.7-10.3); Carbon Dioxide 25.7 mmol/L (21.6-31.8); Non-African American GFR(CKD) 85.4 (60.0-200.0); Potassium 4.8 mmol/L (3.5-5.5)
--- NOTE | 2020-02-06 10:36 | P.PN ---
Subjective Progress Note Date: 02/06/20 Patient is feeling better today. Shortness of breath is improving. Oxygen requirement decreased from 4 L yesterday to 2 L via nasal cannula today. Objective - Vital Signs Vital signs: Vital Signs Temp 98.1 F 02/06/20 04:15 Pulse 107 H 02/06/20 08:00 Resp 14 02/06/20 04:15 BP 92/57 02/06/20 04:15 Pulse Ox 97 02/06/20 07:20 Intake & Output 02/05/20 02/06/20 02/06/20 18:59 06:59 18:59 Intake Total 1300 120 Output Total 840 2040 50 Balance 460 -2040 70 Intake: Intake, IV Titration 500 Amount 0.9% NaCl with KCl 20 Meq 200 /l 1,000 ml @ 100 mls/hr IV .Q10H [facility] Rx#: [id number] Vancomycin 1,500 mg In 250 Sodium Chloride 0.9% 250 ml @ 125 mls/hr IVPB ONCE ONE Rx#:[id number] cefTRIAXone 1 gm In 50 Sodium Chloride 0.9% 50 ml @ 100 mls/hr IVPB Q24HR [facility] Rx#:[id number] Oral 800 120 Output: Drainage 190 140 50 Lower 190 140 50 Urine 650 1900 Uretheral (Siddiqui) 50 Other: Voiding Method Indwelling Catheter Indwelling Catheter # Voids 2 # Bowel Movements 0 - Exam General: The patient is awake and alert, in no distress Eye: there is normal conjunctiva bilaterally. Neck: The neck is supple, there is no JVD. Cardiovascular: Normal S1-S2, no S3-S4, no murmurs. Respiratory: Lungs are diminished with end-expiratory wheezing Gastrointestinal: Abdomen is soft, nontender Musculoskeletal: There is no pedal edema. Neurological:. Speech is normal. Skin: Skin is warm and dry - Labs CBC & Chem 7: 02/06/20 05:21 02/06/20 05:21 Labs: Abnormal Lab Results - Last 24 Hours (Table) 02/06/20 02/06/20 Range/Units 05:21 05:21 RBC 3.08 L (3.80-5.40) m/uL Hgb 9.0 L (11.4-16.0) gm/dL Hct 27.3 L (34.0-46.0) % Neutrophils # 8.2 H (1.3-7.7) k/uL Lymphocytes # 0.6 L (1.0-4.8) k/uL Glucose 133 H (70-110) mg/dL Calcium 7.8 L (8.7-10.3) mg/dL Assessment and Plan Assessment: This is a 74-year-old female with past medical history noted below who was admitted to the hospital for laminectomy. I was asked to see her for medical management. Below is a list of her medical problems. 1. Postoperative day #3 status post L3 to L5 revision fusion. Postoperative care, pain management, and DVT prophylaxis per primary team. 2. Sepsis with septic shock improved with IV fluid bolus. Lactic acid is normal. Possibly attributed to developing pneumonia. Patient had a central line that was removed this morning. Started on IV vancomycin Awaiting blood culture. Influenza and Covid19 screen negative 3. Left lower lobe pneumonia, started on ceftriaxone and azithromycin. Day #2 4. Acute COPD exacerbation. DuoNeb's every 4 hours. One-time dose of IV Solu- Medrol 80 mg now and prednisone 40 mg daily day #1. Inhaled steroids twice daily. 5. Acute hypoxic respiratory failure secondary to #3 and 4. Wean off O2 as tolerated for O2 sat greater than 90% 6. Essential hypertension: Discontinue home dose of metoprolol and Cardizem given hypotension. Continue telemetry monitoring. Would monitor blood pressure closely. 7. CODE STATUS: Patient would like to be DO NOT RESUSCITATE/DO NOT INTUBATE. D iscussed today with patient with her nurse at bedside. Today, I reviewed her medication list and lab work results. Continue management as above. Repeat lab work and chest x-ray in the morning.
[2020-02-06] MEDS: PANTOPRAZOLE 40 MG TABLET PO SCH (21:09)
[2020-02-06] MEDS: ATORVASTATIN 80 MG TAB PO SCH (21:09)
[2020-02-07] MEDS ORDERED: VANCOMYCIN 1,250 MG in SODIUM CHLORIDE 0.9% 250 ML IVPB SCH ×2
[2020-02-07] MEDS: IPRATROPIUM-ALBUTEROL 3 ML NEB INHALATION SCH ×6 (01:10→19:59)
--- NOTE | 2020-02-07 07:33 | XR ---
EXAMINATION TYPE: XR chest 2V DATE OF EXAM: 02/07/2020 COMPARISON: 02/05/2020 HISTORY: Shortness of breath TECHNIQUE: Frontal and lateral views of the chest are obtained. FINDINGS: Scattered senescent parenchymal changes noted. Hyperinflation compatible with COPD. Basilar patchy density is noted with small left effusion. Correlate for underlying pneumonia. Heart size is stable. Mediastinal structures are stable and grossly unremarkable. No evidence for hilar prominence. Degenerative changes dorsal spine. IMPRESSION: 1. Basilar patchy density is noted with small left effusion. Correlate for underlying pneumonia.
[2020-02-07] MEDS: BUDESONIDE 0.5 MG/2 ML NEBU INHALATION SCH ×2 (08:01→19:59)
[2020-02-07] MEDS: polyethylene glycoL 3350 17 GM POWD.PACK PO SCH (09:21)
[2020-02-07] MEDS: AZITHROMYCIN 500 MG TAB PO SCH (09:22)
[2020-02-07] MEDS: HEPARIN SODIUM,PORCINE 5,000 UNIT/ML 1 ML VIAL SQ SCH ×2 (09:22→20:34)
[2020-02-07] MEDS: DOCUSATE 100 MG CAP PO SCH ×2 (09:22→20:34)
[2020-02-07] MEDS: FLUoxetine HCL 20 MG CAP PO SCH (09:22)
[2020-02-07] MEDS: GABAPENTIN 300 MG CAP PO SCH ×3 (09:22→20:34)
[2020-02-07] MEDS: predniSONE 20 MG TAB PO SCH (09:22)
--- NOTE | 2020-02-07 09:26 | P.PN ---
Subjective Progress Note Date: 02/07/20 Patient feels that she is getting worse today. She is having audible wheezing. Intermittent cough that is generally nonproductive. Objective - Vital Signs Vital signs: Vital Signs Temp 97.7 F 02/07/20 05:00 Pulse 85 02/07/20 08:16 Resp 16 02/07/20 05:00 BP 110/65 02/07/20 05:00 Pulse Ox 95 02/07/20 08:02 Intake & Output 02/06/20 02/07/20 02/07/20 18:59 06:59 18:59 Intake Total 120 560 Output Total 130 Balance -10 560 Intake: Oral 120 560 Output: Drainage 130 Lower 130 Other: Voiding Method Toilet # Voids 1 # Bowel Movements 0 - Exam General: The patient is awake and alert, in no distress Eye: there is normal conjunctiva bilaterally. Neck: The neck is supple, there is no JVD. Cardiovascular: Normal S1-S2, no S3-S4, no murmurs. Respiratory: Lungs with diffuse wheezing all over the chest Gastrointestinal: Abdomen is soft, nontender Musculoskeletal: There is no pedal edema. Neurological:. Speech is normal. Skin: Skin is warm and dry - Labs CBC & Chem 7: 02/06/20 05:21 02/06/20 05:21 Labs: Abnormal Lab Results - Last 24 Hours (Table) 02/06/20 Range/Units 05:21 Glucose 133 H (70-110) mg/dL Calcium 7.8 L (8.7-10.3) mg/dL Microbiology - Last 24 Hours (Table) 02/05/20 09:33 Blood Culture - Preliminary Blood No Growth after 24 hours 02/05/20 09:38 Blood Culture - Preliminary Blood No Growth after 24 hours Assessment and Plan Assessment: This is a 74-year-old female with past medical history noted below who was admitted to the hospital for laminectomy. I was asked to see her for medical management. Below is a list of her medical problems. 1. Postoperative day #4 status post L3 to L5 revision fusion. Postoperative care, pain management, and DVT prophylaxis per primary team. 2. Sepsis with septic shock improved with IV fluid bolus. Lactic acid is normal. Possibly attributed to developing pneumonia. Patient had a central line that was removed. Blood culture negative. Influenza and Covid19 screen negative 3. Left lower lobe pneumonia, started on ceftriaxone and azithromycin. Day #3 4. Acute COPD exacerbation. DuoNeb's every 4 hours. One-time dose of IV Solu- Medrol 80 mg now and prednisone 40 mg daily day #2. Inhaled steroids twice daily. 5. Acute hypoxic respiratory failure secondary to #3 and 4. Wean off O2 as tolerated for O2 sat greater than 90% 6. Essential hypertension: Discontinue home dose of metoprolol and Cardizem given hypotension. Continue telemetry monitoring. Would monitor blood pressure closely. 7. CODE STATUS: Patient would like to be DO NOT RESUSCITATE/DO NOT INTUBATE. Discussed today with patient with her nurse at bedside. Today, I reviewed her medication list and lab work results. Continue management as above. Patient is not ready for discharge if and worsening wheezing. She is going to an assisted care living that they do not do nebulizers. Chest x-ray this morning showed stable findings.
[2020-02-07 09:31] LABS: African American GFR (CKD) 98.9 (60.0-200.0); Anion Gap 2.6 mmol/L (4.00-12.00); BUN/Creat Ratio 18.57 Ratio (12.00-20.00); Carbon Dioxide 28.4 mmol/L (21.6-31.8); Non-African American GFR(CKD) 85.4 (60.0-200.0); Potassium 5.1 mmol/L (3.5-5.5)
--- NOTE | 2020-02-07 09:54 | P.PN ---
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 Patient seen and examined this morning. She states she feels like her lungs are getting worse. She has audible cough and wheezing. States other her eyes are watery as well. She denies any fevers or chills or night. She denies any other symptoms of her low back. She denies any new numbness or tingling states she has strength in her legs however she has not been up out of bed more than to go to the bathroom 1. She has no headaches nausea vomiting shortness of breath or chest pain at this time. Objective - Vital Signs Vital signs: Vital Signs Temp 97.7 F 02/07/20 05:00 Pulse 85 02/07/20 08:16 Resp 16 02/07/20 05:00 BP 110/65 02/07/20 05:00 Pulse Ox 95 02/07/20 08:02 Intake & Output 02/06/20 02/07/20 02/07/20 18:59 06:59 18:59 Intake Total 120 560 Output Total 130 Balance -10 560 Intake: Oral 120 560 Output: Drainage 130 Lower 130 Other: Voiding Method Toilet # Voids 1 # Bowel Movements 0 - Exam GEN: AOX3, NAD VSS Inspection: Incision and dressing is clean and dry drain is in place which will be removed today. Palpation: No fluctuance or fluid noted no pain with palpation Motor: 5/5 shoulder abd/EF/EE/WF/intrinsics 5/5 DF/PF/EHL/FHL/HF/KE/KF Patient is generally weak secondary to her current status. Reflexes: 2/4 DTR all upper and LE Sensation intact to light touch in C5-T1 as well as L2-S1 distribution Selby's: Negative bilaterally Clonus: None Babinski: Negative bilaterally Incision: Clean dry and intact. No erythema or ecchymosis or erythema. Minimal drainage. Dressing: Lean dry and intact Drain: 10 mL and drain bulb this morning. Drain was pulled without any issues. The area was redressed. - Labs CBC & Chem 7: 02/06/20 05:21 02/07/20 05:53 Labs: Abnormal Lab Results - Last 24 Hours (Table) 02/07/20 Range/Units 05:53 Chloride 111 H (96-109) mmol/L Anion Gap 2.60 L (4.00-12.00) mmol/L Calcium 8.0 L (8.7-10.3) mg/dL Microbiology - Last 24 Hours (Table) 02/05/20 09:33 Blood Culture - Preliminary Blood No Growth after 24 hours 02/05/20 09:38 Blood Culture - Preliminary Blood No Growth after 24 hours Assessment and Plan Assessment: 75-year-old female postop day 4 from revision of L4 5 fusion with L3 to L5 posterior instrumented fusion and L3 4 interbody fusion 1. 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 Left lower extremity radiculopathy and weakness with failed hardware L4-5 3. L3-4 spondylolisthesis Grade 1 with radiculopathy Plan: -Appreciate continued medical management. -Continue duo nebs per medicine as well as antibiotics -Pain control is adequate at this time -Drain DC'd today -Aggressive ambulation protocol. Needs to be out of bed 3-5 times a day and out of bed with each meal. -PT OT -SCDs and EMERSON mccain. Patient is also on heparin at this time for DVT prophylaxis -GI prophylaxis patient is passing gas however has not had bowel movement yet -Lumbar brace when up and about although not needed. -Depending on patient's respiratory status pending discharge. At this time patient is stable for discharge per orthopedics
[2020-02-07] MEDS: LACTATED RINGERS 1,000 ML IV SCH (11:47)
[2020-02-07] MEDS: HYDROcodone/APAP 7.5-325MG 1 EACH TAB PO PRN (20:33)
[2020-02-07] MEDS: ATORVASTATIN 80 MG TAB PO SCH (20:33)
[2020-02-07] MEDS: PANTOPRAZOLE 40 MG TABLET PO SCH (20:34)
[2020-02-08] MEDS: IPRATROPIUM-ALBUTEROL 3 ML NEB INHALATION SCH ×6 (00:29→19:24)
[2020-02-08] MEDS: HYDROcodone/APAP 7.5-325MG 1 EACH TAB PO PRN ×3 (04:30→23:24)
[2020-02-08] MEDS: LACTATED RINGERS 1,000 ML IV SCH (06:03)
[2020-02-08] MEDS: BUDESONIDE 0.5 MG/2 ML NEBU INHALATION SCH ×2 (07:26→19:24)
[2020-02-08] MEDS: DOCUSATE 100 MG CAP PO SCH ×2 (09:10→20:10)
[2020-02-08] MEDS: predniSONE 20 MG TAB PO SCH (09:10)
[2020-02-08] MEDS: HEPARIN SODIUM,PORCINE 5,000 UNIT/ML 1 ML VIAL SQ SCH ×2 (09:10→20:10)
[2020-02-08] MEDS: GABAPENTIN 300 MG CAP PO SCH ×3 (09:10→20:10)
[2020-02-08] MEDS: polyethylene glycoL 3350 17 GM POWD.PACK PO SCH (09:11)
[2020-02-08] MEDS: AZITHROMYCIN 500 MG TAB PO SCH (09:11)
[2020-02-08] MEDS: FLUoxetine HCL 20 MG CAP PO SCH (09:11)
--- NOTE | 2020-02-08 10:16 | P.PN ---
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 02/07/20: Patient seen and examined this morning. She states she feels like her lungs are getting worse. She has audible cough and wheezing. States other her eyes are watery as well. She denies any fevers or chills or night. She denies any other symptoms of her low back. She denies any new numbness or tingling states she has strength in her legs however she has not been up out of bed more than to go to the bathroom 1. She has no headaches nausea vomiting shortness of breath or chest pain at this time. 02/08/20: Walked into patient in respiratory distress. Called for nursing, respiratory and increased pt O2 to 6L NC. Pt denied chest pain but stated it was very difficult to breath. She was diaphoretic and unable to say more than 1-2 words as she was out of breath. Nsg and respiratory came to bedside immediately. Vitals showed O2 sats in high 80's low 90's. Respiratory stated very wheezy, but about the same as after treatment this AM. Nsg stated she was doing well about 5 min before this. Vitals showed bp 166/75, T of 98.7 and Sats increased with breathing coaching and increased NC to 95% on 6L NC. She was doing better after a few minutes of this. We examined her and checked her medications as well. She states her back is doing well with no pain or issues today. She is only c/o breathing issues. Denies f/c/cp overnight. NO DOUGLASS, N, V. Objective - Vital Signs Vital signs: Vital Signs Temp 98.4 F 02/08/20 05:00 Pulse 80 02/08/20 07:39 Resp 20 02/08/20 05:00 BP 126/73 02/08/20 05:00 Pulse Ox 93 L 02/08/20 05:00 Intake & Output 02/07/20 02/08/20 02/08/20 18:59 06:59 18:59 Intake Total 160 620 Balance 160 620 Intake: Intake, IV Titration 160 140 Amount Lactated Ringers 1,000 ml 160 140 @ 20 mls/hr IV .Q24H [facility] Rx#:[id number] Oral 480 Other: Voiding Method Toilet # Voids 1 # Bowel Movements 1 - Exam GEN: AOX3, NAD VSS once treated with increased O2 Respiratory: Audible wheezing, difficulty with breathing, SOB and tightness Cardio: RRR, no murmur. Rate 101 during end of distress time. Inspection: Incision and dressing is clean and dry drain is in place which will be removed today. Palpation: No fluctuance or fluid noted no pain with palpation Motor: 5/5 shoulder abd/EF/EE/WF/intrinsics 5/5 DF/PF/EHL/FHL/HF/KE/KF Patient is generally weak secondary to her current status. Reflexes: 2/4 DTR all upper and LE Sensation intact to light touch in C5-T1 as well as L2-S1 distribution Selby's: Negative bilaterally Clonus: None Babinski: Negative bilaterally Incision: Clean dry and intact. No erythema or ecchymosis or erythema. Minimal drainage. Dressing: Clean dry and intact . - Labs CBC & Chem 7: 02/06/20 05:21 02/07/20 05:53 Labs: Microbiology - Last 24 Hours (Table) 02/05/20 09:33 Blood Culture - Preliminary Blood No Growth after 48 hours 02/05/20 09:38 Blood Culture - Preliminary Blood No Growth after 48 hours Assessment and Plan Assessment: 75-year-old female postop day 5 from revision of L4 5 fusion with L3 to L5 posterior instrumented fusion and L3 4 interbody fusion with acute/chronic exacerbation of COPD, possible lower lobe pneumonia, Rapid COVID neg, send out pending, and respiratory distress. 1. 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 Left lower extremity radiculopathy and weakness with failed hardware L4-5 3. L3-4 spondylolisthesis Grade 1 with radiculopathy Plan: -Appreciate continued medical management. -Continue duo nebs per medicine as well as antibiotics -Pain control is adequate at this time -Add decadron 6q6 for breathing -Pt on Claratin at home and would like this restarted -Encourage IS 10x/hr -Aggressive ambulation protocol. Needs to be out of bed 3-5 times a day and out of bed with each meal. -PT OT -SCDs and EMERSON mccain. Patient is also on heparin at this time for DVT prophylaxis -GI prophylaxis patient is passing gas however has not had bowel movement yet -Lumbar brace when up and about although not needed. -Depending on patient's respiratory status pending discharge. -Would favor transfer to medicine service at this time. Time with Patient: Greater than 30
--- NOTE | 2020-02-08 17:32 | P.PN ---
Subjective Progress Note Date: 02/08/20 Patient is feeling better today. Her wheezing has improved significantly. She is still requiring 3-4 L of oxygen Objective - Vital Signs Vital signs: Vital Signs Temp 97.9 F 02/08/20 13:00 Pulse 84 02/08/20 15:54 Resp 16 02/08/20 15:54 BP 141/79 02/08/20 13:00 Pulse Ox 89 L 02/08/20 13:00 Intake & Output 02/07/20 02/08/20 02/08/20 18:59 06:59 18:59 Intake Total 160 620 50 Balance 160 620 50 Intake: Intake, IV Titration 160 140 50 Amount Lactated Ringers 1,000 ml 160 140 @ 20 mls/hr IV .Q24H [facility] Rx#:[id number] cefTRIAXone 1 gm In 50 Sodium Chloride 0.9% 50 ml @ 100 mls/hr IVPB Q24HR [facility] Rx#:[id number] Oral 480 Other: Voiding Method Toilet # Voids 1 # Bowel Movements 1 2 - Exam General: The patient is awake and alert, in no distress Eye: there is normal conjunctiva bilaterally. Neck: The neck is supple, there is no JVD. Cardiovascular: Normal S1-S2, no S3-S4, no murmurs. Respiratory: Lungs with mild end expiratory wheezing Gastrointestinal: Abdomen is soft, nontender Musculoskeletal: There is no pedal edema. Neurological:. Speech is normal. Skin: Skin is warm and dry - Labs CBC & Chem 7: 02/06/20 05:21 02/07/20 05:53 Labs: Microbiology - Last 24 Hours (Table) 02/05/20 09:33 Blood Culture - Preliminary Blood No Growth after 72 hours 02/05/20 09:38 Blood Culture - Preliminary Blood No Growth after 72 hours Assessment and Plan Assessment: This is a 74-year-old female with past medical history noted below who was admitted to the hospital for laminectomy. I was asked to see her for medical management. Below is a list of her medical problems. 1. Postoperative day #5 status post L3 to L5 revision fusion. Postoperative care, pain management, and DVT prophylaxis per primary team. 2. Sepsis with septic shock improved with IV fluid bolus. Lactic acid is normal. Possibly attributed to developing pneumonia. Patient had a central line that was removed. Blood culture negative. Influenza and Covid19 screen negative 3. Left lower lobe pneumonia, started on ceftriaxone and azithromycin. Day #4 4. Acute COPD exacerbation. DuoNeb's every 4 hours. One-time dose of IV Solu- Medrol 80 mg now and prednisone 40 mg daily day #3. Inhaled steroids twice daily. 5. Acute hypoxic respiratory failure secondary to #3 and 4. Wean off O2 as tolerated for O2 sat greater than 90% 6. Essential hypertension: Discontinue home dose of metoprolol and Cardizem given hypotension. Continue telemetry monitoring. Would monitor blood pressure closely. 7. CODE STATUS: Patient would like to be DO NOT RESUSCITATE/DO NOT INTUBATE. Today, I reviewed her medication list and lab work results. Continue management as above. Anticipate discharge within the next day or 2
[2020-02-08] MEDS: ATORVASTATIN 80 MG TAB PO SCH (20:10)
[2020-02-08] MEDS: PANTOPRAZOLE 40 MG TABLET PO SCH (20:10)
[2020-02-08] MEDS ORDERED: LORATADINE 10 MG TAB PO SCH (21:00)
[2020-02-09] MEDS: IPRATROPIUM-ALBUTEROL 3 ML NEB INHALATION SCH ×5 (00:50→15:23)
[2020-02-09] MEDS: LACTATED RINGERS 1,000 ML IV SCH (05:32)
[2020-02-09] MEDS: BUDESONIDE 0.5 MG/2 ML NEBU INHALATION SCH (07:17)
[2020-02-09 08:10] VITALS: BP 139/75; RESP 16; TEMP 98.2
--- NOTE | 2020-02-09 08:23 | P.PN ---
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 02/07/20: Patient seen and examined this morning. She states she feels like her lungs are getting worse. She has audible cough and wheezing. States other her eyes are watery as well. She denies any fevers or chills or night. She denies any other symptoms of her low back. She denies any new numbness or tingling states she has strength in her legs however she has not been up out of bed more than to go to the bathroom 1. She has no headaches nausea vomiting shortness of breath or chest pain at this time. 02/08/20: Walked into patient in respiratory distress. Called for nursing, respiratory and increased pt O2 to 6L NC. Pt denied chest pain but stated it was very difficult to breath. She was diaphoretic and unable to say more than 1-2 words as she was out of breath. Nsg and respiratory came to bedside immediately. Vitals showed O2 sats in high 80's low 90's. Respiratory stated very wheezy, but about the same as after treatment this AM. Nsg stated she was doing well about 5 min before this. Vitals showed bp 166/75, T of 98.7 and Sats increased with breathing coaching and increased NC to 95% on 6L NC. She was doing better after a few minutes of this. We examined her and checked her medications as well. She states her back is doing well with no pain or issues today. She is only c/o breathing issues. Denies f/c/cp overnight. NO DOUGLASS, N, V. 02/09/20: Pt s/e this AM. Doing much better than yesterday morning. She states she thinks she just panicked because she couldn't find her call button and could not breathe. Today breathing well, decreased wheezing substantially. Denies any f/c/sob/cp overnight. No pain in back, has been up to bathroom and around room without any issues. Denies any new numbness/tingling/weakness/pain. States she wants to go home with home health care. Objective - Vital Signs Vital signs: Vital Signs Temp 98.2 F 02/09/20 08:00 Pulse 81 02/09/20 08:00 Resp 16 02/09/20 08:00 BP 139/75 02/09/20 08:00 Pulse Ox 91 L 02/09/20 08:00 Intake & Output 02/08/20 02/09/20 02/09/20 18:59 06:59 18:59 Intake Total 50 620 Balance 50 620 Intake: Intake, IV Titration 50 140 Amount Lactated Ringers 1,000 ml 140 @ 20 mls/hr IV .Q24H [facility] Rx#:[id number] cefTRIAXone 1 gm In 50 Sodium Chloride 0.9% 50 ml @ 100 mls/hr IVPB Q24HR [facility] Rx#:[id number] Oral 480 Other: # Voids 1 # Bowel Movements 2 - Exam GEN: AOX3, NAD VSS once treated with increased O2 Respiratory: Much improved. No WWW Cardio: RRR, no murmur. Inspection: Incision and dressing is clean and dry drain is in place which will be removed today. Palpation: No fluctuance or fluid noted no pain with palpation Motor: 5/5 shoulder abd/EF/EE/WF/intrinsics 5/5 DF/PF/EHL/FHL/HF/KE/KF Patient is generally weak secondary to her current status. Reflexes: 2/4 DTR all upper and LE Sensation intact to light touch in C5-T1 as well as L2-S1 distribution Selby's: Negative bilaterally Clonus: None Babinski: Negative bilaterally Incision: Clean dry and intact. No erythema or ecchymosis or erythema. NO drainage. Dressing removed open to air. . - Labs CBC & Chem 7: 02/06/20 05:21 02/07/20 05:53 Labs: Microbiology - Last 24 Hours (Table) 02/05/20 09:33 Blood Culture - Preliminary Blood No Growth after 72 hours 02/05/20 09:38 Blood Culture - Preliminary Blood No Growth after 72 hours Assessment and Plan Assessment: 75-year-old female postop day 6 from revision of L4 5 fusion with L3 to L5 posterior instrumented fusion and L3 4 interbody fusion with acute/chronic ex acerbation of COPD, possible lower lobe pneumonia, Rapid COVID neg, send out pending, and respiratory distress. 1. 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 Left lower extremity radiculopathy and weakness with failed hardware L4-5 3. L3-4 spondylolisthesis Grade 1 with radiculopathy Plan: -Appreciate continued medical management. Would favor home today or tomorrow pending their evaluation -Continue duo nebs per medicine as well as antibiotics -Pain control is adequate at this time -DC decadron for home, consider PO prednisone. -Pt on Claratin at home and would like this restarted -Encourage IS 10x/hr -Aggressive ambulation protocol. Needs to be out of bed 3-5 times a day and out of bed with each meal. -PT OT -CANDIDOs and EMERSON mccain. Patient is also on heparin at this time for DVT prophylaxis -GI prophylaxis patient is passing gas however has not had bowel movement yet -Lumbar brace when up and about although not needed. -Depending on patient's respiratory status pending discharge. Continues to be Ortho Sp[facility] stable for home. Await medicine and PT recs.
[2020-02-09] MEDS: GABAPENTIN 300 MG CAP PO SCH (08:27)
[2020-02-09] MEDS: DOCUSATE 100 MG CAP PO SCH (08:27)
[2020-02-09] MEDS: FLUoxetine HCL 20 MG CAP PO SCH (08:27)
[2020-02-09] MEDS: predniSONE 20 MG TAB PO SCH (08:27)
[2020-02-09] MEDS: HEPARIN SODIUM,PORCINE 5,000 UNIT/ML 1 ML VIAL SQ SCH (08:27)
[2020-02-09] MEDS: polyethylene glycoL 3350 17 GM POWD.PACK PO SCH (08:28)
[2020-02-09] MEDS ORDERED: AZITHROMYCIN 250 MG TAB PO SCH (09:00)
[2020-02-09 10:24] VITALS: BMI 29.9
--- NOTE | 2020-02-09 10:37 | P.DS ---
Providers Date of admission: 02/03/20 10:56 Expected date of discharge: 02/09/20 Attending physician: Rachid Ayon DO Consults: 02/03/20 17:43 Consult Physician Routine Consulting Provider: Talia Flynn Consult Reason/Comments: medical managment Do you want consulting provider notified?: Yes Primary care physician: Halie Bolden MD Hospital Course: This is a 74-year-old female with past medical history noted below who was admitted to the hospital for laminectomy. I was asked to see her for medical management. Below is a list of her medical problems. 1. Postoperative day #6 status post L3 to L5 revision fusion. Postoperative care, pain management, and DVT prophylaxis per primary team. 2. Sepsis with septic shock improved with IV fluid bolus. Lactic acid is normal. Possibly attributed to developing pneumonia. Patient had a central line that was removed. Blood culture negative. Influenza and Covid19 screen negative 3. Left lower lobe pneumonia, started on ceftriaxone and azithromycin. Day #5. Finished 5 days course of antibiotic in the hospital 4. Acute COPD exacerbation. DuoNeb's every 4 hours. One-time dose of IV Solu- Medrol 80 mg now and prednisone 40 mg daily day #4. No need for further systemic steroid 5. Acute hypoxic respiratory failure secondary to #3 and 4. Wean off O2 as tolerated for O2 sat greater than 90% 6. Essential hypertension: Blood pressure running low during this hospital stay. Change home regimen to Toprol-XL 25 mg once daily Patient will be discharged home with home care. She will be set up for home O2. She was advised to follow-up with her district service manager at [facility] for a 6 minute walking test in the next couple of weeks. Continue nebulizer treatment at home. Patient will be discharged home in a stable condition. For further details about this hospitalization please refer to the electronic chart. Time spent on discharge > 30 minutes including counseling and coordination of care Patient Condition at Discharge: Fair Plan - Discharge Summary Discharge Rx Participant: Yes New Discharge Prescriptions: New Cyclobenzaprine [Flexeril] 5 mg PO TID PRN #40 tablet PRN Reason: Spasms Gabapentin 300 mg PO TID 30 Days #90 cap traMADol HCL 50 mg PO Q4H PRN #40 tablet PRN Reason: Pain Metoprolol Succinate (ER) [Toprol Xl] 25 mg PO DAILY #30 tab Continue Ascorbic Acid [Vitamin C] 500 mg PO DAILY Abatacept/Maltose [Orencia] 0 mg IVPB DIRECTED Arformoterol Tartrate [Brovana] 15 mcg INHALATION BID Fluticasone Nasal Eddy [Flonase Nasal Eddy] 1 spray EA NOSTRIL DAILY PRN PRN Reason: Allergic Reaction FLUoxetine HCL [PROzac] 20 mg PO QAM Pantoprazole [Protonix] 40 mg PO HS Gabapentin 300 mg PO BID Atorvastatin [Lipitor] 80 mg PO HS Aspirin [[place] Aspirin EC] 81 mg PO DAILY Clopidogrel [Plavix] 75 mg PO DAILY Calcium Carbonate [Calcium] 600 mg PO BID [place] 40 mg PO DAILY Xoledronic 5 mg IVPB Q365D Yupelri 3 mg INHALATION HS Discontinued hydroCHLOROthiazide [Hydrodiuril] 25 mg PO DAILY Metoprolol Succinate (ER) [Toprol Xl] 50 mg PO QAM Diltiazem HCl [Diltiazem HCl 24Hr ER] 120 mg PO QAM Discharge Medication List Abatacept/Maltose [Orencia] 0 mg IVPB DIRECTED 01/06/20 [History] Arformoterol Tartrate [Brovana] 15 mcg INHALATION BID 01/06/20 [History] Ascorbic Acid [Vitamin C] 500 mg PO DAILY 01/06/20 [History] Aspirin [[place] Aspirin EC] 81 mg PO DAILY 01/06/20 [History] Atorvastatin [Lipitor] 80 mg PO HS 01/06/20 [History] Black Cohosh 40 mg PO DAILY 01/06/20 [History] Calcium Carbonate [Calcium] 600 mg PO BID 01/06/20 [History] Clopidogrel [Plavix] 75 mg PO DAILY 01/06/20 [History] FLUoxetine HCL [PROzac] 20 mg PO QAM 01/06/20 [History] Fluticasone Nasal Eddy [Flonase Nasal Eddy] 1 spray EA NOSTRIL DAILY PRN 01/06/20 [History] Gabapentin 300 mg PO BID 01/06/20 [History] Pantoprazole [Protonix] 40 mg PO HS 01/06/20 [History] Xoledronic 5 mg IVPB Q365D 01/30/20 [History] Yupelri 3 mg INHALATION HS 01/30/20 [History] Cyclobenzaprine [Flexeril] 5 mg PO TID PRN #40 tablet 02/09/20 [Rx] Gabapentin 300 mg PO TID 30 Days #90 cap 02/09/20 [Rx] Metoprolol Succinate (ER) [Toprol Xl] 25 mg PO DAILY #30 tab 02/09/20 [Rx] traMADol HCL 50 mg PO Q4H PRN #40 tablet 02/09/20 [Rx] Follow up Appointment(s)/Referral(s): Halie Bolden MD [Primary Care Provider] - 1 Week Rachid Ayon DO [Doctor of Osteopathic Medicine] - 1 Week Activity/Diet/Wound Care/Special Instructions: [facility] at [address] [place] [address] had been referred for home care at discharge. 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 Please discuss prescription refills at your follow up appointment. Do not call the hospital for medication refills. Dressing: Leave your dressing in place for a total of 5 days post operatively. Then you may remove your dressing and leave open to air. Keep the area clean and if not able to keep area clean, then cover with sterile gauze and tape. Showering: You may shower 3 days after your procedure allowing soap and water to run over incision. Do not scrub. Do not soak. Blot dry. Follow up: Please confirm a follow up appointment with your surgeon 3 weeks post operatively. Please make an appointment to follow up with your PCP in 1-2 weeks after surgery for evaluation 3 phase, 3-week plan POST OP WEEKS 1-3 1. Lifting/carrying/pushing/pulling limited to less than 5 pounds. 2. Do not sit for longer than 15 minutes at one time. Get up and walk around. Prolonged sitting is NOT advised. If you lay down, see if you can tolerate laying down on you front (belly side) 3. Walk for periods of 15 minutes = 1 mile but no longer; do it multiple times times each day. 4.Ice your low back after activity. POST OP WEEKS 3-6 1. Lifting limited to less than 20 pounds. 2. Do not sit for longer than 30 minutes at a time. Frequently change positions. Use a sit-to stand workstation or take frequent breaks from sitting if you have returned to work. 3. Walk for 30 minutes each day. If possible, do these three or more times a day POST OP WEEKS 6+ At your 6-week appointment we will give you a physical therapy referral to focus on a core stabilization and strengthening program. You should also work on leg & buttock strengthening, hamstring & quadriceps stretching, and continue a low impact aerobic activity program such as swimming, walking, or riding a stationary bicycle. During the initial 6 weeks after your surgery, you are at the highest risk of re-injuring your spine. You should generally avoid BLTs (bending, lifting and twisting combination motions) and follow the above guidelines to reduce the chance of reinjury. You can anticipate post op appointments in our office at approximately 3 weeks and 6 weeks after your surgery. INCISION CARE: If your incision is not draining you do NOT need to cover it with a dressing. Keep your incision clean, dry and intact. In most cases, we apply skin glue, chito or sutures to the incision at the time of surgery. This will be like a crust or have the appearance of a scab and will fall off in time on its own. The stitches or chito need to be removed at 3 weeks post op appointment. You may begin to shower 3 days after surgery (this allows the glue to guzman well). However, please avoid scrubbing the incision site or peeling off any of the skin glue. This will ensure optimal healing of your incision. Also, during this time avoid soaking the incision area in water - this includes swimming pools, hot tubs or baths. No ointments, lotions or oils on the incision until your surgeon allows. Leave chito, sutures or glue in place. Neurological dysfunction that comes on suddenly can also be a sign of a stroke. Below some common symptoms of a stroke are listed: B - balance difficulty such as sudden onset walking or leaning to one side - NEW E - eye problem such as sudden double vision or trouble seeing on one side - NEW F - Facial weakness or numbness on one side - NEW A - Arm or leg weakness or numbness on one side - NEW S - Slurred speech or difficulty with word finding - NEW T - Time is BRAIN! Call 911 as soon as you recognize these symptoms Diet: Consume a regular diet rich in vegetables and lean protein such as chicken or fish. You should consume in a ratio of approximately 20% fats|40% carbohydrates|40%protein. Vegetables, sweet potatoes, brown rice or quinoa are examples of good carbohydrates. Chips, white bread, cookies and sweets/sugar are examples of bad carbohydrates. Limit your bad carbs, go wild with good carbs. "Life's Simple 7" Guidelines as per [place] [employer] These will help you reclaim your life after surgery and cheesemaker helper in your recovery, keeping in mind your restrictions. (1) Get Active. Physical activity can help people lose weight, control high blood pressure and cholesterol, feel emotionally better, and sleep better. (2) Control Cholesterol. Avoid a diet high in saturated fat, trans fat, & cholesterol. Limit whole milk & cream, ice cream, butter, egg yolks, processed meats (like sausage and hot dogs), and fatty meats. Choose healthy foods that are low in saturated fat, trans fat and cholesterol which include: Fruits and vegetables, fiber rich grain products (like whole grain pasta and brown rice), lean meat such as chicken, fish, nuts, seeds, and legumes. (3) Eat Better. Eat small portions. Shop at the grocery with a list and do not stray from it. Tips for a healthy diet include: Limit sodium intake to less than 1500mg daily, avoid prepackaged, processed, and fast foods, choose a diet rich in fruits, vegetables, and whole grain, high fiber foods, and limit saturated & cholesterol in your diet. (4) Manage Blood Pressure. If you have high blood pressure, you should have a cuff at home so that you can check your blood pressure regularly. Be sure you have a good cuff. An arm one is generally better than a wrist one. Bring the cuff to a doctor's appointment to validate that the measurements that your cuff are taking are accurate. Take your blood pressure twice daily when you are sitting down and relaxing. Record the numbers in a log and bring this log with you to your doctors' appointments. (5) Lose Weight if your BMI is above 25. A healthy BMI is between 19-25. To calculate Your BMI, you may use a Standard BMI Calculator on the NIH BMI website: <www.nhlbi.nih.gov/guidelines/obesity/BMI/bmicalc.htm>. Weigh oneself daily. If you are overweight, set a goal to lose weight. A pound a week loss if needed is a good target. (6) Reduce Blood Sugar. Limit foods and liquids with "added sugars." (Added sugars include sucrose, fructose, glucose, maltose, dextrose, high fructose corn syrup, corn syrup, concentrated fruit juice and honey). (7) Stop Smoking. If you smoke, quitting smoking is one of the best things that you can do for your health. Smoking increases your risk of heart attack, stroke, and peripheral vascular disease, which is a build-up of plaque in your arteries. Please discard all the cigarettes and lighters in your house. Have a plan for what you will do when you have the urge to smoke. Direct and second- hand smoke shortens your life as well as the lives of your family, friends and others around you. For your health and the health of those around you, please consider quitting! Proper Bending Body Mechanics: Maintain a wide stance with one foot slightly in front of the other. Keep your back straight. Bend utilizing the strength in your hips and knees. Do not bend at the waist. Maintain the lifted object at your waist-level close to your body. Avoid lifting weight that causes immediately pain or pain anywhere in the body afterwards. Smoking/Nicotine If there was ever one thing that you could do to increase your overall health, decrease your risk of cardiovascular problems by about 39% the second you make the choice, it is to STOP SMOKING. Your body's most instant gratification is the second you stop smoking. We have all heard the studies, read the articles but it is true, smoking is extremely bad for your overall health, and moreover it is detrimental to your bone health. Nicotine, IN ANY FORM, kills bone cells, prevents your body from healing fractures, and significantly prolongs healing after surgery. In spine surgery specifically, it increases your risk of not healing your bones to create a fusion and increases your risk of having a revision surgery due to this up to 60%. I know it is hard. I know it feels impossible. But there are ways. Take control of your life. We are here to help you through it. And when you are ready, ask us and we can direct you to help if you desire. Use the START Plan to Quit Smoking (please visit the Helpguide.org website listed below for more information): S = Set a quit date. Choose a date within the next 2 weeks, so you have enough time to prepare without losing your motivation to quit. If you mainly smoke at work, quit on the weekend, so you have a few days to adjust to the change. T = Tell family, friends, and co-workers that you plan to quit. Let your friends and family in on your plan to quit smoking and tell them you need their support and encouragement to stop. Look for a quit ludin who wants to stop smoking as well. You can help each other get through the rough times. A = Anticipate and plan for the challenges you'll face while quitting. Most people who begin smoking again do so within the first 3 months. You can help yourself make it through by preparing ahead for common challenges, such as nicotine withdrawal and cigarette cravings. R = Remove cigarettes and other tobacco products from your home, car, and work. Throw away all your cigarettes (no emergency pack!), lighters, ashtrays, and matches. Wash your clothes and freshen up anything that smells like smoke. Shampoo your car, clean your drapes and carpet, and steam your furniture. T = Talk to your doctor about getting help to quit. Your doctor can prescribe medication to help with withdrawal and suggest other alternatives. If you can't see a doctor, you can get many products over the counter at your local pharmacy or grocery store, including the nicotine patch, nicotine lozenges, and nicotine gum. Resources for Quitting Smoking: <https://www.[place].gov/documents/[facility]/Quit_Tobacco_Resources_for_patients_313 480_7.pdf> Supplementation: Take recommended dosages of Vitamin D and Calcium to help fortify your bones and help them to heal. See your health maintenance packet for dosages and recommended levels. DVT/VTE prophylaxis: You will be given compression stockings from the hospital. Wear these daily for the first two weeks after surgery. You may take them off at night. You may be prescribed a medication to help thin your blood. Take this as directed. If you are not prescribed this medication, early and frequent ambulation has been shown to be the best prophylaxis to deep vein thrombosis and sequelae related to this event. Discharge Disposition: HOME WITH HOME HEALTH SERVICES
[2020-02-09 11:03] VITALS: PULSE 80
== END 2020-02-09 15:59 | disposition home health service (06) | DRG 453 ==
LOC: 2ORMAIN 02-03 10:56 → 5NMEDONC 02-03 18:16 → 6NMEDSUR 02-07 11:23
PROVIDERS: ADMIT Orthopaedic Surgery; ATTEND Orthopaedic Surgery
PROC: 02H633Z Insertion of Infusion Device into Right Atrium, Percutaneous Approach (ICD-10-PCS; 2020-02-03)
PROC: 0SP004Z Removal of Internal Fixation Device from Lumbar Vertebral Joint, Open Approach (ICD-10-PCS; principal; 2020-02-03 12:45)
PROC: 0SG1071 Fusion of 2 or more Lumbar Vertebral Joints with Autologous Tissue Substitute, Posterior Approach, Posterior Column, Open Approach (ICD-10-PCS; principal; 2020-02-03 12:45)
PROC: 0SG00AJ Fusion of Lumbar Vertebral Joint with Interbody Fusion Device, Posterior Approach, Anterior Column, Open Approach (ICD-10-PCS; principal; 2020-02-03 12:45)
PROC: 01NB0ZZ Release Lumbar Nerve, Open Approach (ICD-10-PCS; principal; 2020-02-03 12:45)
DX: M96.0 Pseudarthrosis after fusion or arthrodesis (principal); A41.9 Sepsis, unspecified organism; R65.21 Severe sepsis with septic shock; J96.01 Acute respiratory failure with hypoxia; J18.9 Pneumonia, unspecified organism; J44.1 Chronic obstructive pulmonary disease with (acute) exacerbation; J44.0 Chronic obstructive pulmonary disease with (acute) lower respiratory infection; L40.50 Arthropathic psoriasis, unspecified; Z20.828 Contact with and (suspected) exposure to other viral communicable diseases; M06.9 Rheumatoid arthritis, unspecified; Z66 Do not resuscitate; M48.07 Spinal stenosis, lumbosacral region; M47.817 Spondylosis without myelopathy or radiculopathy, lumbosacral region; M43.16 Spondylolisthesis, lumbar region; M48.061 Spinal stenosis, lumbar region without neurogenic claudication; M54.16 Radiculopathy, lumbar region; E78.5 Hyperlipidemia, unspecified; Y83.8 Other surgical procedures as the cause of abnormal reaction of the patient, or of later complication, without mention of misadventure at the time of the procedure; I10 Essential (primary) hypertension; M79.7 Fibromyalgia; K21.9 Gastro-esophageal reflux disease without esophagitis; E06.3 Autoimmune thyroiditis; F32.9 Major depressive disorder, single episode, unspecified; F41.9 Anxiety disorder, unspecified; F42.9 Obsessive-compulsive disorder, unspecified; G89.29 Other chronic pain; M43.17 Spondylolisthesis, lumbosacral region; Z71.3 Dietary counseling and surveillance; Z79.02 Long term (current) use of antithrombotics/antiplatelets; Z79.899 Other long term (current) drug therapy; Z79.82 Long term (current) use of aspirin; Z86.73 Personal history of transient ischemic attack (TIA), and cerebral infarction without residual deficits; Z90.49 Acquired absence of other specified parts of digestive tract; Z95.5 Presence of coronary angioplasty implant and graft; Z90.710 Acquired absence of both cervix and uterus; Z98.890 Other specified postprocedural states; Z98.42 Cataract extraction status, left eye; Z98.41 Cataract extraction status, right eye; Z87.891 Personal history of nicotine dependence; Z88.5 Allergy status to narcotic agent; Z88.8 Allergy status to other drugs, medicaments and biological substances; Z91.048 Other nonmedicinal substance allergy status; Z80.0 Family history of malignant neoplasm of digestive organs; Z80.1 Family history of malignant neoplasm of trachea, bronchus and lung; Z80.42 Family history of malignant neoplasm of prostate; Z82.49 Family history of ischemic heart disease and other diseases of the circulatory system
CPT/HCPCS: 36415; 71045; 71046; 72100; 72131; 80048; 81001; 83605; 85025; 85610; 85730; 86850; 86891; 86900; 86901; 87040; 87502; 87635; 94640; 94760

== ENCOUNTER → 2020-01-30 | Outpatient (CLI) | payer MEDICARE, OTHER | END | disposition home or self-care (01) | LOC: LABPAT 15:22 | PROVIDERS: ATTEND Orthopaedic Surgery | DX: Z01.818 Encounter for other preprocedural examination (principal) | CPT/HCPCS: 36415; 86850; 86900; 86901 ==

== ENCOUNTER → 2020-08-03 | Outpatient (CLI) | payer MEDICARE, OTHER ==
--- NOTE | 2020-08-03 16:15 | CT ---
EXAMINATION TYPE: CT lumbar spine wo con DATE OF EXAM: 08/03/2020 12:46 PM COMPARISON: Lumbar spine x-ray July 26, 2020 CT lumbar spine February 04, 2020 HISTORY: Lumbar pain. Surgery . CT DLP: 540.3 mGycm Automated exposure control for dose reduction was used. Unenhanced CT of the lumbar spine was performed. Bone and soft tissue window settings are submitted as well as coronal and sagittal reconstructions. Assuming hypoplastic bilateral T12 ribs and bilateral posterior interpedicular rods and screws and ar tificial disc material L3-L4 and L4-L5 levels. Sacralized left L5 segment redemonstrated. There is po sterior decompression with spinous process resection lower lumbar spine. Slight grade 1 anterolisthes is L3 on L4 and L4-L5 is unchanged. Slight grade 1 retrolisthesis T12 and L1 redemonstrated. Vertebra l body heights maintained. Negative osseous structures demineralized. Moderate disc space narrowing T 12-L1 level with bdcw-gd-somaovis anterior and posterior spine redemonstrated. Axial images at T12-L1 level demonstrates small posterior spur disc complex mildly effacing the anter ior thecal sac. Axial images at L2-L3 level redemonstrated moderate broad-based disc bulge effacing the anterior thec al sac with opkl-sc-awasmieu facet degenerative changes and ligamentum flavum hypertrophy effacing th e posterior lateral thecal sac on axial image 42 similar to prior study. Patent bilateral neural fora amira. No significant change from prior. Artifact from metallic hardware redemonstrated L3-L4 and L4-L5 levels. Artificial disc material and i ntrapedicular screw positioning stable. Left L4 interpedicular screw extends through anterior vertebr al body margin axial image 59 and right also extends more significantly as vertebral body margin axia l image 70 not significantly changed in appearance from prior study. Posterior scar tissue redemonstr ated. Slightly prominent right renal pelvis again seen. Probable cystic lesion lower pole left kidney is partially imaged on this study. IMPRESSION: Postsurgical changes L3-L5 level redemonstrated. Alignment stable. No significant change from recent CT.
== END | disposition home or self-care (01) ==
LOC: RADCTMAIN 12:25
PROVIDERS: ATTEND Orthopaedic Surgery
DX: Z98.890 Other specified postprocedural states (principal)
CPT/HCPCS: 72131

== ENCOUNTER 2020-09-16 12:12 | Day surgery (SDC) | payer MEDICARE, OTHER ==
[2020-09-16 12:50] VITALS: RESP 18; TEMP 97.5
[2020-09-16] MEDS ORDERED: methylPREDNISolone ACETATE 40 MG/ML 1 ML VIAL ONE (13:05)
[2020-09-16] MEDS ORDERED: ROPIVACAINE 5MG/ML 20ML VIAL ONE (13:05)
--- NOTE | 2020-09-16 13:17 | P.PCN ---
Date of Procedure: 09/16/20 Procedure(s) Performed: Procedure= Left sacroiliac joints steroid injection under fluoroscopy guidance (fluoroscopy image stored on file in the radiology Department ) Preoperative diagnosis= 1-left sacroiliitis Postoperative diagnosis=Same as preop Diagnosis . Complication = none Condition= stable Anesthesia= local infiltration with lidocaine 1% 3 mL only. Indication for the procedure= patient complaining of low back pain , examination was positive for severe tenderness over the sacroiliac joints bilaterally and patient diagnosed with sacroiliitis, for this reason she was good candidate for sacroiliac joint steroid injection. Description of the procedure= procedure risk and benefits discussed with the patient, including but not limited, risk of infection and bleeding, and ALLERGIC reaction to the medication and not complete pain relief and patient agreed with the preceding patient taken to the operating room, placed in prone position or standard monitors applied to the patient then after induction of anesthesia back prepped with chlorhexidine 3 times , Then the left sacroiliac joint steroid injection done under strict sterile technique local infiltration of the skin and subcu interstitial at the location of the left sacroiliac joint then a 25-gauge Quincke Needle advanced slowly under fluoroscopy time placed in the left sacroiliac joint, needle placement confirmed with AP and oblique and lateral view then after appropriate needle placement confirmed and after negative aspiration 0.5% Ropivacaine 4 mL and 40 mg of Depo-Medrol injected in the left sacroiliac joint after negative aspiration patient tolerated the procedure well that any complications and she will follow up in clinic 3 weeks
--- NOTE | 2020-09-16 13:29 | FL ---
EXAMINATION TYPE: FL guided pain mgmt statistic DATE OF EXAM: 09/16/2020 HISTORY: Fluoroscopy time 5 seconds of fluoroscopy provided. IMPRESSION: 1. Fluoroscopy time.
[2020-09-16 13:41] VITALS: BP 157/67; PULSE 70
== END 2020-09-16 13:49 | disposition home or self-care (01) ==
LOC: ORPAIN 12:12
PROVIDERS: ATTEND Specialist
DX: M46.1 Sacroiliitis, not elsewhere classified (principal); E16.2 Hypoglycemia, unspecified; J45.909 Unspecified asthma, uncomplicated; Z99.81 Dependence on supplemental oxygen; Z79.02 Long term (current) use of antithrombotics/antiplatelets; Z88.8 Allergy status to other drugs, medicaments and biological substances; Z88.5 Allergy status to narcotic agent; Z91.09 Other allergy status, other than to drugs and biological substances
CPT/HCPCS: J1030; J2795; G0260; 27096

== ENCOUNTER 2020-10-12 11:35 | Day surgery (SDC) | payer MEDICARE, OTHER ==
[2020-10-08 18:08] VITALS: BMI 30.4
[~2020-10-12 11:35] MED LIST changes: +LACTATED RINGERS 1,000 ML IV SCH; -PREMYELOGRAM MEDICATION REVIEW 1 EACH MISC PO ONE
[2020-10-12 12:08] VITALS: TEMP 97.9
[2020-10-12 12:11] LABS: Glucose,Whole Blood 99 mg/dL (75-99)
[2020-10-12] MEDS ORDERED: TRIAMCINOLONE ACETONIDE 40 MG/ML 1 ML VIAL ONE (12:31)
[2020-10-12] MEDS ORDERED: ROPIVACAINE 5MG/ML 20ML VIAL ONE (12:31)
--- NOTE | 2020-10-12 12:42 | P.PCN ---
Date of Procedure: 10/12/20 Surgeon: Angie Sibley Pathology: none sent Condition: stable Disposition: PACU Description of Procedure: Preoperative diagnoses= sacroiliac joint dysfunction and sacroiliitis on the l eft side Postoperative diagnoses= same as preoperative diagnosis. Procedure= Left sacroiliac joint steroid injection under fluoroscopic guidance. Anesthesia= local anesthesia with lidocaine 1% only Estimated blood loss=minimal. Procedure indication= the patient had a history of severe chronic low back pain, diagnosed with sacroiliitis and lumbar sacral facet arthropathy unresponsive to conservative treatment. Procedure description= the patient was seen and identified in the preoperative holding area, risks and benefits and alternative of the procedure and possible complications discussed with the patient, patient signed the consent. an IV was started, and vital signs were monitored and were stable throughout the procedure, patient was placed in the prone position or table and the lumbosacral area was prepped and draped with a sterile fashion, vital signs were closely monitored during the procedure.The sacroiliac joint was identified on the AP view of fluoroscopy then the C-arm was tilted to the contralateral oblique position to superimpose the anterior and posterior joint lines on each other and to have a unified joint line with the target point at the inferior one third of this line. I used 22-gauge 3-1/2 inch Quincke spinal needle for this procedure and after getting into the sacroiliac joint I injected 40 mg of Kenalog +2 MLS of Ropivacaine 0.5%. Patient tolerated the procedure well without any complication, The patient returned to supine position after the back was cleaned and a Band- Aid applied, the patient transported to recovery room in stable condition and he was monitored for 30 minutes before she was discharged home in stable condition . patient will follow up with the pain clinic in a few weeks. A copy of the needle placement was saved to the C-arm machine.
[2020-10-12 12:49] VITALS: RESP 16
[2020-10-12 13:02] VITALS: BP 156/74; PULSE 70
--- NOTE | 2020-10-12 13:15 | FL ---
EXAMINATION TYPE: FL guided pain mgmt statistic DATE OF EXAM: 10/12/2020 HISTORY: Fluoroscopy time 3 seconds of fluoroscopy provided. IMPRESSION: 1. Fluoroscopy time.
== END 2020-10-12 13:29 | disposition home or self-care (01) ==
LOC: ORPAIN 11:35
PROVIDERS: ATTEND Anesthesiology
DX: M46.1 Sacroiliitis, not elsewhere classified (principal)
CPT/HCPCS: G0260; J3301; J2795; 27096

== ENCOUNTER → 2020-11-08 | Outpatient (CLI) | payer MEDICARE, OTHER ==
[2020-11-08 13:43] VITALS: BP 158/84; PULSE 77; RESP 18; TEMP 98.1
--- NOTE | 2020-11-08 13:51 | P.PAINPG ---
Subjective Progress Note Date: 11/08/20 This is a 75-year-old female who is referred by Dr. Ayon. She has had 2 left sacroiliac joint injections with us. She has a history of lumbar fusion as well. Unfortunately the procedure did not provide much relief for her, commenting that she had about 50% relief on the day of the nothing after. Patient is located in the low back worse on the left side describes dull and aching with occasional radiation into the thighs. There are no alleviating factors and exacerbating factors include rising from a seated position and physical activity. She has not scheduled follow-up with Dr. Ayon and yet but she is planning on doing that. Patient has been taking medications from Dr Ayon including gabapentin 300 mg QID with some relief. Patient denies adverse drug effects from medications. Patient also denies new-onset weakness, bowel/bladder incontinence, or any other signs or symptoms of cauda equina syndrome. There are no signs of acute intoxication, and no indications of medication diversion or overuse. In addition to above, 13-point review of systems is also negative for chest pain, shortness of breath, changes in vision, changes in hearing, new onset weakness, abdominal pain, diarrhea, extreme fatigue, malaise, fever, skin changes, homicidal or suicidal ideation, or bowel or bladder incontinence. Physical exam: Vital Signs: Reviewed in EMR GENERAL: Well appearing, in no acute distress PSYCH: Mood and affect is appropriate. Awake, alert, and oriented SKIN: Skin color, texture, turgor normal, no rashes or lesions HEENT: Normocephalic, atraumatic. EOM intact CV: No pedal edema RESP: Respirations are unlabored, no audible wheezing GI: Abdomen non-distended MUSCULOSKELETAL: Bilateral upper and lower extremity strength is normal and symmetric. No atrophy or tone abnormalities are noted. Lumbar spine: Straight leg raising in the sitting position is negative for radicular pain. pain to palpation over the lumbar spine and paraspinous muscles. positive for pain with facet loading and back extension/rotation. Limited flexion and extension Buttocks: pain to palpation over the PSIS, Manoj test is positive Extremities: Peripheral joint ROM is full and pain free without obvious instability or laxity in all four extremities. No edema or skin discolorations noted. Gait: Gait is normal NEUR: Bilateral upper and lower extremity coordination and muscle stretch reflexes are physiologic and symmetric. Negative clonus. No loss of sensation i s noted. Cranial nerves are grossly intact. Assessment: 1. Lumbars pondylosis 2. Post laminectomy syndrome Plan: - At this time I've asked her to follow with Dr. Ayon. If he has any other thoughts on what injections we can do for her we will be more than happy to assist with that I spent 28 minutes on patient care today. The time was used to review medical records including relevant urine studies and prescription history (MAPs), review of the available imaging, evaluation and examination the patient, coordination of care at the medical staff and if applicable referring physicians, as well as creation of the medical record. PQRS Measure Charge Sheet PQRS Narrative: Pain Intensity [Bilateral 7 Lower Back] Scale Used Numeric (1 - 10) Hx Alcohol Use (MH) Yes Home Medications: Ambulatory Orders Abatacept/Maltose [Orencia] 1 dose IVPB Q28D 01/06/20 Arformoterol Tartrate [Brovana] 15 mcg INHALATION BID 01/06/20 Ascorbic Acid [Vitamin C] 500 mg PO DAILY 01/06/20 Atorvastatin [Lipitor] 80 mg PO HS 01/06/20 Calcium Carbonate [Calcium] 600 mg PO BID 01/06/20 Clopidogrel [Plavix] 75 mg PO DAILY 01/06/20 FLUoxetine HCL [PROzac] 20 mg PO QAM 01/06/20 Fluticasone Nasal [place] [Flonase Nasal [place]] 1 spray EA NOSTRIL DAILY PRN 01/06/20 Gabapentin 300 mg PO 0800,1300 01/06/20 Pantoprazole [Protonix] 40 mg PO HS 01/06/20 Xoledronic 5 mg IVPB Q365D 01/30/20 Yupelri 3 mg INHALATION HS 01/30/20 Metoprolol Succinate (ER) [Toprol Xl] 25 mg PO DAILY #30 tab 02/09/20 Cholecalciferol [Vitamin D3 (25 Mcg = 1000 Iu)] 25 mcg PO DAILY 10/08/20 Cyanocobalamin (Vitamin B-12) [Vitamin B-12] 500 mcg PO DAILY 10/08/20 Gabapentin 600 mg PO HS 10/08/20 Acetaminophen Tab [Tylenol Tab] 650 mg PO BID 11/04/20 Controlled Substance Measures - Controlled Substance Measures Is patient prescribed a controlled substance at discharge?: No
== END ==
LOC: PNWHC3 13:33
PROVIDERS: ATTEND Anesthesiology
DX: M47.816 Spondylosis without myelopathy or radiculopathy, lumbar region (principal); M96.1 Postlaminectomy syndrome, not elsewhere classified; Z88.5 Allergy status to narcotic agent; Z91.048 Other nonmedicinal substance allergy status; Z88.8 Allergy status to other drugs, medicaments and biological substances
CPT/HCPCS: 99211

== ENCOUNTER 2020-12-14 12:06 | Day surgery (SDC) | payer MEDICARE, OTHER ==
[2020-12-13 12:27] VITALS: BMI 30.9
[2020-12-14 12:43] VITALS: TEMP 97.5
[2020-12-14] MEDS ORDERED: methylPREDNISolone ACETATE 40 MG/ML 1 ML VIAL ONE (13:19)
[2020-12-14] MEDS ORDERED: ROPIVACAINE 5MG/ML 20ML VIAL ONE (13:19)
--- NOTE | 2020-12-14 13:32 | P.PCN ---
Date of Procedure: 12/14/20 Procedure(s) Performed: Procedure= Left sacroiliac joints steroid injection under fluoroscopy guidance (fluoroscopy image stored on file in the radiology Department ) Preoperative diagnosis= 1-left sacroiliitis Postoperative diagnosis=Same as preop Diagnosis . Complication = none Condition= stable Anesthesia= local infiltration with lidocaine 1% 3 mL only. Indication for the procedure= patient complaining of low back pain , examination was positive for severe tenderness over the sacroiliac joints bilaterally and patient diagnosed with sacroiliitis, for this reason she was good candidate for sacroiliac joint steroid injection. Description of the procedure= procedure risk and benefits discussed with the patient, including but not limited, risk of infection and bleeding, and ALLERGIC reaction to the medication and not complete pain relief and patient agreed with the preceding patient taken to the operating room, placed in prone position or standard monitors applied to the patient then after induction of anesthesia back prepped with chlorhexidine 3 times , Then the left sacroiliac joint steroid injection done under strict sterile technique local infiltration of the skin and subcu interstitial at the location of the left sacroiliac joint then a 25-gauge [place]ke Needle advanced slowly under fluoroscopy time placed in the left sacroiliac joint, needle placement confirmed with AP and oblique and lateral view then after appropriate needle placement confirmed and after negative aspiration 0.5% Ropivacaine 4 mL and 40 mg of Depo-Medrol injected in the left sacroiliac joint after negative aspiration patient tolerated the procedure well that any complications and she will follow up with Dr Ayon .
[2020-12-14 13:42] VITALS: RESP 20
[2020-12-14 13:58] VITALS: BP 175/90; PULSE 84
--- NOTE | 2020-12-14 14:15 | FL ---
Fluoroscopy HISTORY: Pain 8 seconds fluoroscopy time supplied to the referring clinician. 1 intraoperative C-arm images documen t the procedure. See dictated report from anesthesia.
== END 2020-12-14 14:00 | disposition home or self-care (01) ==
LOC: ORPAIN 12:06
PROVIDERS: ATTEND Specialist
DX: M46.1 Sacroiliitis, not elsewhere classified (principal); Z88.5 Allergy status to narcotic agent; Z88.8 Allergy status to other drugs, medicaments and biological substances; Z91.09 Other allergy status, other than to drugs and biological substances; Z79.02 Long term (current) use of antithrombotics/antiplatelets; E16.2 Hypoglycemia, unspecified
CPT/HCPCS: J1030; J2795; G0260; 27096

== ENCOUNTER 2021-06-14 12:06 | Day surgery (SDC) | payer MEDICARE, OTHER ==
[2021-06-09 15:58] VITALS: BMI 30.9
[~2021-06-14 12:06] MED LIST changes: +LIDOCAINE 1% (10MG/ML) FOR IV START INTRADERMA PRN
[2021-06-14 12:50] VITALS: TEMP 98.4
--- NOTE | 2021-06-14 13:06 | P.PCN ---
Date of Procedure: 06/14/21 Procedure(s) Performed: Procedure= Left sacroiliac joints steroid injection under fluoroscopy guidance (fluoroscopy image stored on file in the radiology Department ) Preoperative diagnosis= 1-left sacroiliitis Postoperative diagnosis=Same as preop Diagnosis . Complication = none Condition= stable Anesthesia= local infiltration with lidocaine 1% 3 mL only. Indication for the procedure= patient complaining of low back pain , examination was positive for severe tenderness over the sacroiliac joints bilaterally and patient diagnosed with sacroiliitis, for this reason she was good candidate for sacroiliac joint steroid injection. Description of the procedure= procedure risk and benefits discussed with the patient, including but not limited, risk of infection and bleeding, and ALLERGIC reaction to the medication and not complete pain relief and patient agreed with the preceding patient taken to the operating room, placed in prone position or standard monitors applied to the patient then after induction of anesthesia back prepped with chlorhexidine 3 times , Then the left sacroiliac joint steroid injection done under strict sterile technique local infiltration of the skin and subcu interstitial at the location of the left sacroiliac joint then a 25-gauge [place]ke Needle advanced slowly under fluoroscopy time placed in the left sacroiliac joint, needle placement confirmed with AP and oblique and lateral view then after appropriate needle placement confirmed and after negative aspiration 0.5% Ropivacaine 4 mL and 40 mg of Depo-Medrol injected in the left sacroiliac joint after negative aspiration patient tolerated the procedure well that any complications and she will follow up with Dr Ayon .
[2021-06-14] MEDS ORDERED: methylPREDNISolone ACETATE 40 MG/ML 1 ML VIAL ONE (13:10)
[2021-06-14] MEDS ORDERED: ROPIVACAINE 5MG/ML 20ML VIAL ONE (13:10)
[2021-06-14 13:13] VITALS: RESP 18
--- NOTE | 2021-06-14 13:15 | FL ---
Fluoroscopy HISTORY: Pain 5 seconds fluoroscopy time supplied to the referring clinician. 1 intraoperative C-arm images docume nt the procedure. See dictated report from anesthesia.
[2021-06-14 13:28] VITALS: BP 148/78; PULSE 78
== END 2021-06-14 13:39 | disposition home or self-care (01) ==
LOC: ORPAIN 12:06
PROVIDERS: ATTEND Specialist
DX: M46.1 Sacroiliitis, not elsewhere classified (principal)
CPT/HCPCS: J1030; J2795; G0260; 27096

== ENCOUNTER → 2021-07-04 | Outpatient (CLI) | payer MEDICARE, OTHER ==
[2021-07-04 13:43] VITALS: BP 148/76; PULSE 75; RESP 18; TEMP 98.2
--- NOTE | 2021-07-04 14:04 | P.PN ---
Subjective Progress Note Date: 07/04/21 Principal diagnosis: A 76 yr old female with a history of severe and chronic low back pain secondary to lumbar degenerative disc diseases and lumbar spondylosis with facet arthropathy presents today for evaluation status post left SI injection 4. Patient states she experienced 90% pain relief status post procedure. Pain level is currently at 2 out of 10 in intensity, dull, achy, sharp in the lower left aspect of her lumbar spine where it meets her tailbone. No radiation of pain. Pain is provoked by sitting or standing for periods of 15 minutes or more. Pain is alleviated with medications, topicals, injections, heat, physical therapy 2020, home stretching regimen, repositioning, use of a reclining chair and rest. Interventional pain procedures completed include L SI injections x 4 Patient is currently on Tylenol & Ibuprofen OTC Patient denies any side effects of the medication(s), denies excessive drowsiness or sleepiness, denies suicidal ideation and reports that the current pain medication is helping to control the pain and improve activities of daily living. Patient denies any motor or sensory deficits. Patient denies any fever or night sweats, denies any change in the bowel movements or urination. Physical Examination: -Constitutional: Cooperative. Not in acute distress . -HEENT: Neck is supple. No lymphadenopathy. No thyromegaly. Normal thyroid size. Eyes: No ptosis , no icterus, no photophobia. ENT: No auditory deficits. Normal oropharynx. No Thrush. - Respiratory: Chest clear to auscultations bilaterally. No wheezing. No rhonchi. - Cardiovascular: Regular rate and rhythm. S1 / S2 , no S3 , no S4. - Gastrointestinal: Abdomen soft no tenderness. Bowel sounds positive in all four quadrants. No organomegaly. - Genitourinary: Deferred. - Neurologic: Cranial nerve II to XII intact. No focal neurological deficits. - Psychatric: Alert & oriented x 3. Matching mood & appropriate affect. Judgment and insight intact. - Lymphatic: No Lymphadenopathy. - Musculoskeletal: Cervical spine: Muscle bulk/ tone/ strength in the bilateral upper extremities normal. Facet loading test cervical area positive. Lumbar spine: Motor bulk/ tone/ strength lower extremities , thigh and legs : 5/5 Deep tendon reflexes : Normal Knee Jerk. Normal Ankle Jerk . Vertebral body tenderness to palpation over L5 Lumbar Facet Loading Test positive Straight Leg Raise: positive at 30 degrees right side/ left side Gaenslen's Test positive Sacral spine : Severe tenderness over the Sacroiliac joint: right side / left side Range of motion: Flexion of the lumbar spine <60 degrees Range of motion: Extension of the lumbar spine <20 degrees Gaenslen's Test positive Manoj test: positive right side / left side Assessment and plan: Chronic low back pain secondary to lumbar degenerative disc disease , lumbar spondylosis with facet arthropathy without myelopathy Recommendation of L TFESI L5-S1. Risks, benefits of procedure discussed and patient verbalized understanding. May need a series of injections, up to 3 with a 6 month period, for optimal pain relief. Denies anticoagulant use. Denies medical history of diabetes. All patient questions answered MAPS reviewed and it was appropriate. I have spent 31 minutes on patient care today. Dr Tang was available by phone for the evaluation of this patient. The time was used to review the medical records including relevant urine studies and Prescription history (MAPs), review of the available imaging, evaluation and examination of the patient, coordination of care with the medical staff and if applicable referring physicians, as well as creation of the medical record Objective - Vital Signs Vital signs: Vital Signs Temp 98.2 F 07/04/21 13:17 Pulse 75 07/04/21 13:17 Resp 18 07/04/21 13:17 BP 148/76 07/04/21 13:17 Pulse Ox 92 L 07/04/21 13:17 Intake & Output 07/03/21 07/04/21 07/04/21 18:59 06:59 18:59 Weight 62.596 kg PQRS Measure Charge Sheet Mode of Arrival: Ambulatory - Pain Location Left Lower Back Non-Pharmacological Interventions: Heat, Inactivity, Position/Reposition, Sitting Pharmacological Interventions: PRN Medication, Topical Medication PQRS Narrative: Blood Pressure 148/76 Pain Intensity [Left Lower 2 Back] Scale Used Numeric (1 - 10) Hx Alcohol Use (MH) Yes Home Medications: Ambulatory Orders Abatacept/Maltose [Orencia] 1 dose IVPB Q28D 01/06/20 Arformoterol Tartrate [Brovana] 15 mcg INHALATION BID 01/06/20 Ascorbic Acid [Vitamin C] 500 mg PO DAILY 01/06/20 Atorvastatin [Lipitor] 80 mg PO HS 01/06/20 Calcium Carbonate [Calcium] 600 mg PO BID 01/06/20 FLUoxetine HCL [PROzac] 20 mg PO QAM 01/06/20 Fluticasone Nasal [place] [Flonase Nasal [place]] 1 spray EA NOSTRIL DAILY PRN 01/06/20 Gabapentin 300 mg PO 0800,1300 01/06/20 Pantoprazole [Protonix] 40 mg PO HS 01/06/20 Xoledronic 5 mg IVPB Q365D 01/30/20 Yupelri 3 mg INHALATION HS 01/30/20 Cholecalciferol [Vitamin D3 (25 Mcg = 1000 Iu)] 25 mcg PO DAILY 10/08/20 Cyanocobalamin (Vitamin B-12) [Vitamin B-12] 500 mcg PO DAILY 10/08/20 Gabapentin 600 mg PO HS 10/08/20 Acetaminophen Tab [Tylenol Tab] 650 mg PO BID PRN 11/04/20 Budesonide [Pulmicort] 0.5 mg INHALATION BID 06/09/21 Metoprolol Succinate (ER) [Toprol Xl] 100 mg PO DAILY 06/09/21 Montelukast [Singulair] 10 mg PO HS 06/09/21 amLODIPine [Norvasc] 5 mg PO DAILY 06/09/21
== END ==
LOC: PNWHC3 13:13
PROVIDERS: ATTEND Specialist
DX: M51.36 Other intervertebral disc degeneration, lumbar region (principal); M47.816 Spondylosis without myelopathy or radiculopathy, lumbar region; G89.29 Other chronic pain; Z91.048 Other nonmedicinal substance allergy status; Z88.5 Allergy status to narcotic agent; Z88.8 Allergy status to other drugs, medicaments and biological substances
CPT/HCPCS: 99211

== ENCOUNTER 2021-08-16 09:57 | Day surgery (SDC) | payer MEDICARE, OTHER ==
[2021-08-12 12:38] VITALS: BMI 30.9
[2021-08-16] MEDS ORDERED: LACTATED RINGERS 1,000 ML IV ONE (10:25)
[2021-08-16 10:36] LABS: Glucose,Whole Blood 94 mg/dL (75-99)
[2021-08-16 10:38] VITALS: TEMP 97.3
[2021-08-16] MEDS ORDERED: IOPAMIDOL M200 10 ML VIAL ONE (11:13)
[2021-08-16] MEDS ORDERED: methylPREDNISolone ACETATE 40 MG/ML 1 ML VIAL ONE (11:13)
--- NOTE | 2021-08-16 11:27 | P.PCN ---
Date of Procedure: 08/16/21 Procedure(s) Performed: PREOPERATIVE DIAGNOSIS: 1-Lumbar radiculopathy . PsacroiliacOSTOPERATIVE DIAGNOSIS: Same as preoperative diagnoses. PROCEDURE 1. Transforaminal epidural steroid injection under fluoroscopic guidance at left L5-S1 level. (Fluoroscopy images stored on file in the radiology Department ) 2. Lumbar epidurogram . ANESTHESIA: Local with 1% lidocaine 3 ml only. EBL: Minimal PROCEDURE INDICATION: The patient with low back pain and radiculopathy symptoms unresponsive to conservative treatment. PROCEDURE DESCRIPTION / TECHNIQUE: The patient was seen and identified in the preoperative area. Risks, benefits, complications, and alternatives were discussed with the patient. The patient agreed to proceed with the procedure and signed the consent. IV was started, and vital signs were stable. Patient was taken to the OR and time out was completed. The patient was placed in the prone position on procedure table and a pillow was placed under the abdomen to reduce lumbar lordosis. The lumbosacral area was prepped and draped in the usual sterile fashion. Critical pause was taken. Vital signs were closely monitored during the procedure. Using oblique fluoroscopy, the chin of the ``Ole dog at L5-S1 level was identified, and the skin and deeper tissues just below was localized with 1% lidocaine. Subsequently, a 22-gauge 3.5-inch spinal needle was advanced under a tunneled view fluoroscopic guidance just underneath the chin of the `Andreinay dog at the left L5-S1 Under lateral fluoroscopy, the needle was then advanced to the posterior border of the interforaminal space. After negative aspiration of CSF and blood and with no paresthesias, 1 mL Isovue 200 contrast dye was injected excellent epidurogram and outlining of the nerve root Subsequently, 3 mL of block solution containing 60 mg Depo-Medrol and 2 mL of 0.9% normal saline PF was injected. Needle was removed . At the end of the procedure, skin was cleansed, and bandages were applied. COMPLICATIONS:none DISPOSITION / PLANS: The patient was placed in a supine position and transferred to the recovery area in a stable condition for observation. There was no evidence of lower extremity motor or sensory deficit after the procedure. Jason loera was discharged from the recovery room after meeting discharge criteria. Home discharge instructions were given to the patient by the staff. The patient was reexamined prior to discharge.
[2021-08-16 11:36] VITALS: RESP 16
--- NOTE | 2021-08-16 11:53 | FL ---
Fluoroscopy HISTORY: Pain 4 seconds fluoroscopy time supplied to the referring clinician. 1 intraoperative C-arm images docume nt the procedure. See dictated report from anesthesia.
[2021-08-16 12:56] VITALS: BP 149/80; PULSE 64
== END 2021-08-16 11:57 | disposition home or self-care (01) ==
LOC: ORPAIN 09:57
PROVIDERS: ATTEND Specialist
DX: M54.16 Radiculopathy, lumbar region (principal); Z88.8 Allergy status to other drugs, medicaments and biological substances
CPT/HCPCS: 64483; J1030; J1040; Q9966

== ENCOUNTER → 2021-09-06 | Outpatient (CLI) | payer MEDICARE, OTHER ==
--- NOTE | 2021-09-06 15:47 | CT ---
EXAMINATION TYPE: CT shoulder RT wo con DATE OF EXAM: 09/06/2021 COMPARISON: Examination dated 04/22/2021 HISTORY: rt shoulder pain. Artherex protocol CT DLP: 353.20 mGycm Automated exposure control for dose reduction was used. TECHNIQUE: Multiple CT scan of the right shoulder without IV contrast administration. FINDINGS: Moderate degenerative changes of the acromioclavicular joint. Mild degenerative changes of the glenoh umeral articulation. Irregularity and subchondral cyst formation seen along the lateral and anterior aspects of the humeral head, likely degenerative. No definite acute fracture line identified. No humeral head dislocation. No signs of rotator cuff yuki cific tendinitis. 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 Degenerative changes of the visualized portion of the cervical spine. Suspected subcoracoid bursitis. COPD changes and right upper lung lobe fibrotic changes. Atrophic changes and fatty infiltration of the supraspinatus, infraspinatus and subscapularis muscles. IMPRESSION: Degenerative changes with signs of chronic rotator cuff tear and atrophic changes of the rotator cuff muscles as described above. Further MRI assessment can be considered if clinically required.
== END | disposition home or self-care (01) ==
LOC: RADCTMAIN 14:41
PROVIDERS: ATTEND Orthopaedic Surgery
DX: Z01.818 Encounter for other preprocedural examination (principal); M12.811 Other specific arthropathies, not elsewhere classified, right shoulder; M75.100 Unspecified rotator cuff tear or rupture of unspecified shoulder, not specified as traumatic
CPT/HCPCS: 87070

== ENCOUNTER → 2021-09-07 | Outpatient (CLI) | payer MEDICARE, OTHER ==
[2021-09-07 13:49] VITALS: BP 146/81; PULSE 73; RESP 18; TEMP 98.3
--- NOTE | 2021-09-07 14:30 | P.PAINPG ---
Objective - Vital Signs Vital signs: Vital Signs Temp 98.3 F 09/07/21 13:36 Pulse 73 09/07/21 13:36 Resp 18 09/07/21 13:36 BP 146/81 09/07/21 13:36 Pulse Ox 93 L 09/07/21 13:36 FiO2 Intake & Output 09/06/21 09/07/21 09/07/21 18:59 06:59 18:59 Weight 63.049 kg PQRS Measure Charge Sheet Mode of Arrival: Ambulatory Comment: A 76 yr old female with a history of severe and chronic low back pain secondar y to lumbar degenerative disc diseases and lumbar spondylosis with facet arthropathy presents today for evaluation status post L TF SHANNAN L5-S1. Patient states she experienced 90% pain relief status post procedure. Pain level is currently at 7 out of 10 in intensity, constant, sharp, achy pain in the left lower aspects of her lumbar spine with radiation to the left lower extremity occasionally. Pain is provoked with pushing standing or walking. Pain is relieved with PT in 2018 for 10 weeks total, alternating heat & ice, medications (Tylenol OTC, Cymbalta, Motrin prn), topicals, repositioning and rest. Interventional pain procedures completed include L TFESI L5-S1 x 1. BL SI injections x 2. Patient is currently on Motrin, Cymbalta, Tylenol OTC. Patient denies any side effects of the medication(s), denies excessive drowsiness or sleepiness, denies suicidal ideation and reports that the current pain medication is helping to control the pain and improve activities of daily living. Patient denies any motor or sensory deficits. Patient denies any fever or night sweats, denies any change in the bowel movements or urination. Physical Examination: -Constitutional: Cooperative. Not in acute distress . -HEENT: Neck is supple. No lymphadenopathy. No thyromegaly. Normal thyroid size. Eyes: No ptosis , no icterus, no photophobia. ENT: No auditory deficits. Normal oropharynx. No Thrush. - Respiratory: Chest clear to auscultations bilaterally. No wheezing. No rhonchi. - Cardiovascular: Regular rate and rhythm. S1 / S2 , no S3 , no S4. - Gastrointestinal: Abdomen soft no tenderness. Bowel sounds positive in all four quadrants. No organomegaly. - Genitourinary: Deferred. - Neurologic: Cranial nerve II to XII intact. No focal neurological deficits. - Psychatric: Alert & oriented x 3. Matching mood & appropriate affect. Judgment and insight intact. - Lymphatic: No Lymphadenopathy. - Musculoskeletal: Cervical spine: Muscle bulk/ tone/ strength in the bilateral upper extremities normal Vertebral body tenderness to palpation over Facet loading test positive Thoracic spine Muscle bulk / tone/ strength in the bilateral paraspinal muscles normal Vertebral body tender to palpation over Facet loading test positive Lumbar spine: Motor bulk/ tone/ strength lower extremities , thigh and legs : 5/5 Deep tendon reflexes : Normal Knee Jerk. Normal Ankle Jerk . Vertebral body tenderness to palpation over Lumbar Facet Loading Test positive Straight Leg Raise: positive at 30 degrees right side/ left side Gaenslen's Test positive Sacral spine : Severe tenderness over the Sacroiliac joint: right side / left side Range of motion: Flexion of the lumbar spine <60 degrees Range of motion: Extension of the lumbar spine <20 degrees Gaenslen's Test positive L Horace's Test positive L side Manoj test: positive right side / left side Thigh Thrust Test +L L Sacral Thrust Test Assessment and plan: Chronic low back pain secondary to lumbar degenerative disc disease , lumbar spondylosis with facet arthropathy without myelopathy, BL Sacroiliitis. Pt exhibited sufficient and satisfactory pain relief s/p L TFESI L5-S1. Is not having pain or tenderness at this time Recommendation of L SI joint injection. May need a series, up to every 3 mo, for optimal pain relief. Risks, benefits of procedure discussed and pt verbalized understanding. Denies anticoagulant use or medical history of diabetes. Chronic and current use of high-risk medication (Opioids). The patient was counseled about risk of opioid use, psychological risk associated with opioids and was orally counseled to not overuse , divert or sell medications. Pt is to store medication in a safe location. The patient is counseled against driving while using narcotic medications and also not to use alcohol or any illicit recreational drugs. Patient verbalized understanding that the lack of compliance will result in failure to renew narcotic prescription(s) as well as possible discharge from the clinic Diagnoses, prognosis and treatment options including but not limited to physical therapy, surgical interventions, interventional therapies and medication management including narcotics and adjuvant medication were discussed. All patient questions answered MAPS reviewed and it was appropriate. Prescription for Lawson 5/325mg #18 no refill I have spent 31 minutes on patient care today. Dr Tang was available by phone for the evaluation of this patient. The time was used to review the medical records including relevant urine studies and Prescription history (MAPs), review of the available imaging, evaluation and examination of the patient, coordination of care with the medical staff and if applicable referring physicians, as well as creation of the medical record - Pain Location Left Lower Back Non-Pharmacological Interventions: Heat, Ice, Physical Therapy, Standing Pharmacological Interventions: Epidural PQRS Narrative: Blood Pressure 146/81 Pain Intensity [Left Lower 7 Back] Scale Used Numeric (1 - 10) Hx Alcohol Use (MH) Yes Home Medications: Ambulatory Orders Arformoterol Tartrate [Brovana] 15 mcg INHALATION BID 01/06/20 Ascorbic Acid [Vitamin C] 500 mg PO DAILY 01/06/20 Atorvastatin [Lipitor] 80 mg PO HS 01/06/20 Calcium Carbonate [Calcium] 600 mg PO BID 01/06/20 Fluticasone Nasal [place] [Flonase Nasal [place]] 1 spray EA NOSTRIL DAILY PRN 01/06/20 Pantoprazole [Protonix] 40 mg PO HS 01/06/20 Xoledronic 5 mg IVPB Q365D 01/30/20 Yupelri 3 mg INHALATION HS 01/30/20 Cholecalciferol [Vitamin D3 (25 Mcg = 1000 Iu)] 25 mcg PO DAILY 10/08/20 Cyanocobalamin (Vitamin B-12) [Vitamin B-12] 500 mcg PO DAILY 10/08/20 Acetaminophen Tab [Tylenol Tab] 650 mg PO BID PRN 11/04/20 Budesonide [Pulmicort] 0.5 mg INHALATION BID 06/09/21 Metoprolol Succinate (ER) [Toprol Xl] 100 mg PO DAILY 06/09/21 Montelukast [Singulair] 10 mg PO HS 06/09/21 amLODIPine [Norvasc] 5 mg PO DAILY 06/09/21 Adalimumab [Humira(Cf) Pen] 40 mg SQ Q14D 08/12/21 Aspirin [Adult Low Dose Aspirin EC] 81 mg PO DAILY 08/12/21 DULoxetine HCL [Cymbalta] 30 mg PO BID 08/12/21 Ferrous Sulfate [Iron] 325 mg PO DAILY 08/12/21 Zinc 50 mg PO DAILY 08/12/21 HYDROcodone/APAP 5-325MG [[place] 5-325] 1 tab PO Q4HR PRN 3 Days #18 tab 09/07/21 Controlled Substance Measures - Controlled Substance Measures Is patient prescribed a controlled substance at discharge?: Yes When asked, does pt state using other controlled substances?: No If prescribed controlled substance>3 days was MAPS reviewed?: Yes If Rx opioid, was Start Talking consent form obtained?: Yes If opioid is for acute pain is fill amount 7 days or less?: Yes Was information provided regarding opioid addiction?: Yes
== END ==
LOC: PNWHC3 13:12
PROVIDERS: ATTEND Specialist
DX: M47.816 Spondylosis without myelopathy or radiculopathy, lumbar region (principal); M51.36 Other intervertebral disc degeneration, lumbar region; Z79.891 Long term (current) use of opiate analgesic; G89.29 Other chronic pain; M46.1 Sacroiliitis, not elsewhere classified; Z88.8 Allergy status to other drugs, medicaments and biological substances; Z91.048 Other nonmedicinal substance allergy status; Z88.5 Allergy status to narcotic agent
CPT/HCPCS: 99211

== ENCOUNTER 2021-10-04 05:46 | Day surgery (SDC) | payer MEDICARE, OTHER ==
[2021-09-30 12:22] VITALS: BMI 31.4
--- NOTE | 2021-10-03 14:00 | HP ---
HISTORY AND PHYSICAL CHIEF COMPLAINT: Right shoulder pain. HISTORY OF PRESENT ILLNESS: Patient is a 76-year-old right-hand dominant female who presents with progressive right shoulder pain for the past several years, worsening recently. She did have a fall this year in March in a parking lot. She has had increasing pain and weakness ever since. She has a history of right rotator cuff repair 15 years ago. She has tried medications in addition to an injection, without much relief. She is having pain with attempted overhead use and at night. PAST MEDICAL HISTORY: Significant for atrial fibrillation, COPD, arthritis, diverticulosis, psoriatic arthritis, heart disease, hypertension, hypercholesterolemia. PAST SURGICAL HISTORY: Significant for previous right rotator cuff repair, hysterectomy, hand surgery, foot surgery, and appendectomy along with lumbar spine surgery. CURRENT MEDICATIONS: Atorvastatin, diltiazem, fluoxetine, hydrochlorothiazide, Jardiance, metoprolol, Orencia, gabapentin. ALLERGIES: METFORMIN, BONITA INHIBITORS and OXYCONTIN. FAMILY HISTORY: Significant for cancer and heart disease. SOCIAL HISTORY: Significant for previous tobacco use. REVIEW OF SYSTEMS: 16-point review of systems otherwise reviewed and is noncontributory. PHYSICAL EXAMINATION: On examination, the patient is approximately 4 foot 8 inches, 135 pounds of endomorphic habitus. HEENT exam is nonfocal. Neck is supple. Examination the right shoulder, she is tender about the anterior glenohumeral joint and subacromial space. She has moderate crepitus. Active range of motion, forward elevation 135 degrees, external rotation with arm at side 50 degrees, internal rotation to L3. Motor strength 3+/5 for abduction and external rotation. Impingement test, Neer test, and Speed test are positive. Her distal neurovascular otherwise appears to be intact in the right upper extremity. X-rays of the right shoulder show severe glenohumeral joint space narrowing along with diminished humeral head to acromial distance. Subchondral sclerosis and [id number] changes are noted. IMPRESSION: 1. Severe right rotator cuff arthropathy. 2. History of chronic obstructive pulmonary disease. 3. History of atrial fibrillation. RECOMMENDATIONS: I talked to the patient at length regarding her condition along with treatment options. At this point she is quite limited because of pain despite conservative measures. After thorough discussion, she opts to proceed with surgery. We will plan to proceed with right reverse total shoulder arthroplasty. The patient underwent preoperative cardiac and medical clearance. She has been on baby aspirin, however, stopped that prior to the procedure. We will likely start DVT prophylaxis postoperatively. CATIE / GREGN: [id number] /
[~2021-10-04 05:46] MED LIST changes: +ACETAMINOPHEN TAB 500 MG TAB PO PRN; +DEXAMETHASONE SOD PHOSPHATE 4 MG/ML 1 ML VIAL IV ONE; +HYDROmorphone 0.5 MG/0.5 ML SYRINGE IVP PRN; -LACTATED RINGERS 1,000 ML IV SCH; -LIDOCAINE 1% (10MG/ML) FOR IV START INTRADERMA PRN; +MELOXICAM 7.5 MG TAB PO PRN; +TRANEXAMIC ACID IN NACL,ISO-OS 1,000 MG in SALINE 1 100ML.BAG IVPB PRN; +fentaNYL (PF) 50 MCG/ML 2 ML AMP IV PRN
[2021-10-04] MEDS ORDERED: ALBUTEROL NEBULIZED 2.5 MG/3 ML INHALATION ONE (06:47)
[2021-10-04 07:03] LABS: Glucose,Whole Blood 109 mg/dL (70-110)
[2021-10-04] MEDS: LACTATED RINGERS 1,000 ML IV SCH ×3 (07:06→11:50)
[2021-10-04] MEDS ORDERED: ONDANSETRON 4 MG/2 ML VIAL ONE (07:14)
[2021-10-04] MEDS ORDERED: ONDANSETRON 4 MG/2 ML VIAL IVP ONE (07:19)
[2021-10-04] MEDS ORDERED: DEXAMETHASONE SOD PHOSPHATE 4 MG/ML 1 ML VIAL IVP ONE (07:19)
[2021-10-04] MEDS ORDERED: LIDOCAINE 2% INJ 20 MG/ML (2 ML VIAL) ONE (07:40)
[2021-10-04] MEDS ORDERED: SUCCINYLCHOLINE CHLORIDE 100 MG/5 ML SYR IV ONE (07:40)
[2021-10-04] MEDS ORDERED: PROPOFOL 10 MG/ML 20 ML VIAL IV ONE (07:40)
[2021-10-04] MEDS ORDERED: HYDROmorphone (PF) 1 MG/ML ONE (07:40)
[2021-10-04] MEDS ORDERED: ROCURONIUM 10 MG/ML (5 ML VIAL) IV ONE (07:40)
[2021-10-04] MEDS ORDERED: MIDAZOLAM 2 MG/2 ML VIAL ONE (07:40)
[2021-10-04] MEDS ORDERED: TRANEXAMIC ACID IN NACL,ISO-OS 1,000 MG/100 ML BAG ONE (07:40)
[2021-10-04] MEDS ORDERED: fentaNYL (PF) 50 MCG/ML 2 ML AMP ONE (07:40)
[2021-10-04] MEDS ORDERED: PHENYLEPHRINE-0.9% NACL SYG 1,000 MCG/10 ML SYRINGE ONE (07:40)
[2021-10-04] MEDS ORDERED: SENNOSIDES-DOCUSATE SODIUM 1 EACH TAB PO PRN (08:07)
[2021-10-04] MEDS ORDERED: HYDROmorphone 0.5 MG/0.5 ML SYRINGE IVP PRN ×2 (08:14)
[2021-10-04] MEDS ORDERED: HYDROcodone/APAP 5-325MG 1 EACH TAB PO PRN (08:14)
[2021-10-04] MEDS ORDERED: ceFAZolin 1,000 MG in SODIUM CHLORIDE 0.9% 1,000 ML IRRIGATION ONE (08:18)
[2021-10-04] MEDS ORDERED: LACTATED RINGERS 1,000 ML IV ONE (09:41)
--- NOTE | 2021-10-04 10:01 | P.OP ---
Date of Procedure: 10/04/21 Preoperative Diagnosis: Right rotator cuff arthropathy/glenohumeral joint osteoarthrosis Postoperative Diagnosis: Same Procedure(s) Performed: Right reverse total shoulder arthroplasty Implants: Arthrex size 6 humeral stem, 24 mm +2 glenosphere baseplate, 36+4 glenosphere, 36+6 articular surface, 36 mm suture cup. Anesthesia: GETA Surgeon: Reji Gee Furnace Converter #1: Ciro Lara Estimated Blood Loss (ml): 150 Pathology: other (Humeral head) Condition: stable Disposition: PACU Indications for Procedure: The patient's 76-year-old female presents with progressive right shoulder pain and weakness despite conservative measures. She was noted to have severe rotator cuff arthropathy. A discussion of the risks and benefits of operative intervention versus continued conservative measures was made with patient. She opted to proceed with surgery. Operative risks to include infection, neurovascular injury, development of blood clots, fracture, instability, and possible need for subsequent procedures was discussed. Informed consent was obtained. Operative Findings: As below Description of Procedure: The patient was brought to the operating room, and after induction of general anesthesia was placed in a beachchair position. The bony prominences were appropriately padded. I examined the right shoulder. There was moderate lack of passive forward elevation and external rotation. The [ ] upper extremity was prepped and draped in normal fashion. The bony outlines the coracoid process, distal clavicle, and acromion were outlined with a skin marker. A pulse centimeter deltopectoral incision was made lateral to the coracoid process. Skin was incised sharply. Subcutaneous tissues were divided bluntly. Electrocautery was used for hemostasis. The cephalic vein was identified and gently retracted laterally with the deltoid. The deltopectoral was bluntly developed. Subdeltoid adhesions were then released. The self-retaining retractor was placed. The conjoined tendon was retracted medially and the deltoid laterally. The biceps was previously ruptured. Pseudocapsule was excised. The head was then exposed. The shoulder was dislocated. A starting hole was made in line with the humeral shaft. The canal was reamed by hand up to size [ ]. There was good distal chatter. The cutting guide was then placed. I planned on 30 of retroversion. The humeral head cut was then made. The bone was removed in one fragment. Residual inferomedial osteophytes were removed flush with the [place] cortical bone. Attention was then paid towards preparing the glenoid. An anterior and posterior retractors placed. The labrum was released from the 12-6 o'clock position. Remaining biceps was removed as well. A guidepin was placed in the inferior aspect of the glenoid with the guide slightly tilting inferior. The reamer was used down to a bleeding bony surface. The central peg hole was drilled. The standard baseplate with a 20 mm central post was inserted with good purchase. Inferior, superior, and posterior locking screws the appropriate length were placed. Good purchase was obtained. The 36 mm glenosphere was inserted. This was fully seated. Care was taken to avoid any soft tissue interposition. Attention was then paid towards preparing the proximal humerus. The appropriate broach was placed and 20 of retroversion and was fully seated. An size 36 epiphyseal reamer was utilized. A size 6 stem with a size 6 epiphysis was placed and 30 of retroversion. Trial reduction was obtained with a 36mm+6 articular surface. The shoulder was taken through range of motion. It was felt to be stable in flexion and extension with internal and external rotation. I felt there was adequate mormonism of soft tissue tension judging off the conjoined tendon. The shoulder was gently dislocated. The trial components were then removed. The final size 6 press-fit stem along with a size 36 epiphysis was fully seated. There was good rotational stability. The 36 mm +6 articular surface was impacted. The shoulder again was gently reduced and taken through range of motion. Again it was felt to be stable in all planes. Pulsatile lavage was utilized. The subscapularis was a attached to the lesser tuberosity with #2 Ethibond suture. The deltopectoral interval was closed with interrupted 2-0 Vicryl sutures. The skin was reapproximated with 3-0 subcuticular Prolene suture. Steri-Strips were applied. A sterile dressing was applied. A sling was placed. The patient was awoken from general anesthesia and transferred to recovery room in good condition. Blood loss was estimated at 150 mL. No complications were incurred. Sponge and needle counts were correct at the end the case. Daniel SCHMIDT assisted during the major components of the case to include exposure, glenoid and humeral preparation, implantation, and closure.
--- NOTE | 2021-10-04 10:23 | XR ---
EXAMINATION TYPE: XR shoulder limited RT DATE OF EXAM: 10/04/2021 COMPARISON: NONE TECHNIQUE: Two views submitted HISTORY: Post op FINDINGS: There is a prosthetic shoulder in near anatomic alignment. There is soft tissue edema and emphysema. IMPRESSION: 1. Postoperative change. Appears in near-anatomic alignment
[2021-10-04] MEDS: HYDROcodone/APAP 5-325MG 1 EACH TAB PO PRN ×2 (12:32→17:46)
[2021-10-04] MEDS ORDERED: FLUTICASONE 50MCG/SPRAY NASAL 16GM EA NOSTRIL PRN (12:51)
[2021-10-04] MEDS ORDERED: ACETAMINOPHEN TAB 325 MG TAB PO PRN (12:51)
[2021-10-04] MEDS: BUDESONIDE 0.5 MG/2 ML NEBU INHALATION SCH (19:54)
[2021-10-04] MEDS: CALCIUM CARBONATE 500 MG CHEWABLE PO SCH (20:09)
[2021-10-04] MEDS ORDERED: MONTELUKAST 10 MG TAB PO SCH (21:00)
[2021-10-04] MEDS ORDERED: METOPROLOL SUCCINATE (ER) 100 MG TAB.ER.24H PO SCH (21:00)
[2021-10-04] MEDS ORDERED: ATORVASTATIN 80 MG TAB PO SCH (21:00)
[2021-10-04] MEDS ORDERED: PANTOPRAZOLE 40 MG TABLET PO SCH (21:00)
[2021-10-05] MEDS: HYDROcodone/APAP 5-325MG 1 EACH TAB PO PRN ×3 (00:19→14:09)
--- NOTE | 2021-10-05 07:21 | PN ---
PROGRESS NOTE White female comes in today status post shoulder surgery of her right shoulder. She is having no chest pain, shortness of breath. No lightheadedness, dizziness or syncope. Home medications were reviewed. Fourteen-point review of systems otherwise negative. Temp 98, pulse 79, respiratory 16 to 18, blood pressure 120s over 50s. O2 93 on 3 L. Cardiovascular S1, S2. Lungs clear. Musculoskeletal: Right shoulder is taped. Psych: Fair mood and affect. ASSESSMENT: Status post shoulder replacement. Home medicines from home will be continued. Hypertension medicines Norvasc 5 mg daily, Lipitor for cholesterolemia. Pulmicort for her breathing, Cymbalta 60 mg a day for depression, iron and fluticasone for anemia and nasal steroids for pain control. She is stable at this time. Continue metoprolol for hypertension. GERD medicine. PROGNOSIS: Guarded. MMODL / IJN: [id number] /
[2021-10-05 07:23] VITALS: BP 125/64; RESP 18; TEMP 98.2
[2021-10-05] MEDS: CALCIUM CARBONATE 500 MG CHEWABLE PO SCH ×2 (07:25→07:39)
[2021-10-05] MEDS: BUDESONIDE 0.5 MG/2 ML NEBU INHALATION SCH (08:14)
[2021-10-05 08:18] VITALS: PULSE 66
[2021-10-05] MEDS ORDERED: ASPIRIN 325 MG TAB PO SCH (09:00)
[2021-10-05] MEDS ORDERED: CYANOCOBALAMIN 500 MCG TAB PO SCH (09:00)
[2021-10-05] MEDS ORDERED: ASPIRIN 81 MG PO SCH (09:00)
[2021-10-05] MEDS ORDERED: DULoxetine HCL 60 MG CAPSULE.DR PO SCH (09:00)
[2021-10-05] MEDS ORDERED: FERROUS SULFATE 325 MG TAB PO SCH (09:00)
[2021-10-05] MEDS ORDERED: amLODIPine 5 MG TAB PO SCH (09:00)
[2021-10-05] MEDS ORDERED: ZINC SULFATE 220 MG CAP PO SCH (09:00)
[2021-10-05] MEDS ORDERED: YUPELRI INHALATION SCH (09:00)
[2021-10-05] MEDS ORDERED: CHOLECALCIFEROL 25 MCG (1000 IU) TABLET PO SCH (09:00)
--- NOTE | 2021-10-05 09:50 | P.DS ---
Providers Date of admission: 10/04/2021 Expected date of discharge: 10/05/21 Attending physician: Reji Gee Consults: 10/04/21 10:03 Consult Physician Routine Consulting Provider: Deng Venegas Reason/Comments: Medical Management Do you want consulting provider notified?: Yes Primary care physician: Halie Bolden MD Hospital Course: Date of admission: 10/04/2021 Date of discharge: 10/05/2021 Admission diagnosis: Right rotator cuff arthropathy/glenohumeral joint osteoarthrosis Discharge diagnosis: Same Attending physician: Dr. Gee Surgical procedures: reverse right total shoulder arthroplasty Brief history: Patient is a 76-year-old female with a history of Right rotator cuff arthropathy/glenohumeral joint osteoarthrosis. At this point patient has failed conservative treatment measures and has opted to proceed with a elective reverse right total shoulder arthroplasty. Hospital course: Details of patient's surgery can be found in operative report. Patient tolerated the procedure well and was subsequently transported to orthopedic floor. Patient's orthopeidc and medical care was provided daily. Patient had daily laboratory tests performed for evaluation of overall blood counts. Patient had daily physical therapy to include strengthening range of motion as well as education with walker ambulation. Patient was treated with aspirin for their postoperative DVT prophylaxis during their inpatient stay. Patient was noted to have a relatively uneventful postoperative course. Patient reported satisfactory pain control with oral pain medications by postoperative day 1. Patient showed satisfactory progress with physical therapy. Patient moved steadily through the program and had no difficulty meeting the goals by postoperative day 1. Given patient's otherwise satisfactory course and having met physical therapy goals, plan is to discharge patient home with health services on postoperative day 1. Discharge condition/disposition: Patient will be discharged home with health services in stable condition. Discharge medications: Instructions are given on resumption of patient's normal daily medications per primary care recommendation, in addition patient will be prescribed [place] 5 mg/325 mg; Colace; aspirin 81 mg twice a day 30 days. Discharge instructions: 1. Wound care and infection precautions, keep incision dry and covered while showering, no lotions, creams, moisturizers. No soaking, tubs, pools, hottubs. Do not scrub over the incision. 2. Nonweightbearing right upper extremity 3. Ice and elevate when necessary. Do not exceed 20 minutes per hour with ice pack. 4. Utilize arm sling to RUE until seen at first follow up appointment. 5. Nursing care. 6. Physical therapy. 7. Pain meds and anticoagulants per prescription. 8. Pain medication has potential to cause constipation. Increase oral fluid and fiber intake. Contact primary care provider if you have not had a bowel movement within 48 hours after discharge 9. No anti-inflammatory medication until discussed at first post operative visit, this including Motrin, Aleve, Mobic, Diclofenac, Aspirin. 10. Follow up in office at 2 weeks postop with Daniel Lara PA-C / Jasbir Clark PA-C 11. Follow up with your primary care doctor 7-10 days after discharge. 12. Contact [facility] with any questions, . Assessment: Right rotator cuff arthropathy/glenohumeral joint osteoarthrosis Procedures: Reverse right total shoulder arthroplasty Patient Condition at Discharge: Good Plan - Discharge Summary Discharge Rx Participant: Yes New Discharge Prescriptions: New HYDROcodone/APAP 5-325MG [[place] 5-325] 1 tab PO Q6HR PRN #28 tab PRN Reason: Pain Docusate [Colace] 100 mg PO DAILY #30 capsule No Action Ascorbic Acid [Vitamin C] 500 mg PO DAILY Arformoterol Tartrate [Brovana] 15 mcg INHALATION BID Fluticasone Nasal [place] [Flonase Nasal [place]] 1 spray EA NOSTRIL DAILY PRN PRN Reason: ALLERGY SYMPTOMS Pantoprazole [Protonix] 40 mg PO HS Atorvastatin [Lipitor] 80 mg PO HS Calcium Carbonate [Calcium] 600 mg PO BID Xoledronic 5 mg IVPB Q365D Yupelri 3 mg INHALATION DAILY Cholecalciferol [Vitamin D3 (25 Mcg = 1000 Iu)] 25 mcg PO DAILY Acetaminophen Tab [Tylenol Tab] 650 mg PO BID PRN PRN Reason: Pain amLODIPine [Norvasc] 5 mg PO DAILY Budesonide [Pulmicort] 0.5 mg INHALATION BID Metoprolol Succinate (ER) [Toprol Xl] 100 mg PO HS Montelukast [Singulair] 10 mg PO HS Cyanocobalamin (Vitamin B-12) [Vitamin B-12] 500 mcg PO DAILY DULoxetine HCL [Cymbalta] 60 mg PO DAILY Zinc 50 mg PO DAILY Ferrous Sulfate [Iron] 325 mg PO DAILY Aspirin [Adult Low Dose Aspirin EC] 81 mg PO DAILY Adalimumab [Humira(Cf) Pen] 40 mg SQ Q14D Loratadine-Pseudoeph 10-240 mg [Claritin-D 24 Hour] 1 tab PO DAILY Discharge Medication List Arformoterol Tartrate [Brovana] 15 mcg INHALATION BID 01/06/20 [History] Ascorbic Acid [Vitamin C] 500 mg PO DAILY 01/06/20 [History] Atorvastatin [Lipitor] 80 mg PO HS 01/06/20 [History] Calcium Carbonate [Calcium] 600 mg PO BID 01/06/20 [History] Fluticasone Nasal [place] [Flonase Nasal [place]] 1 spray EA NOSTRIL DAILY PRN 01/06/20 [History] Pantoprazole [Protonix] 40 mg PO HS 01/06/20 [History] Xoledronic 5 mg IVPB Q365D 01/30/20 [History] Yupelri 3 mg INHALATION DAILY 01/30/20 [History] Cholecalciferol [Vitamin D3 (25 Mcg = 1000 Iu)] 25 mcg PO DAILY 10/08/20 [History] Cyanocobalamin (Vitamin B-12) [Vitamin B-12] 500 mcg PO DAILY 10/08/20 [History] Acetaminophen Tab [Tylenol Tab] 650 mg PO BID PRN 11/04/20 [History] Budesonide [Pulmicort] 0.5 mg INHALATION BID 06/09/21 [History] Metoprolol Succinate (ER) [Toprol Xl] 100 mg PO HS 06/09/21 [History] Montelukast [Singulair] 10 mg PO HS 06/09/21 [History] amLODIPine [Norvasc] 5 mg PO DAILY 06/09/21 [History] Adalimumab [Humira(Cf) Pen] 40 mg SQ Q14D 08/12/21 [History] Aspirin [Adult Low Dose Aspirin EC] 81 mg PO BID 08/12/21 [History] DULoxetine HCL [Cymbalta] 60 mg PO DAILY 08/12/21 [History] Ferrous Sulfate [Iron] 325 mg PO DAILY 08/12/21 [History] Zinc 50 mg PO DAILY 08/12/21 [History] Loratadine-Pseudoeph 10-240 mg [Claritin-D 24 Hour] 1 tab PO DAILY 10/03/21 [History] Docusate [Colace] 100 mg PO DAILY #30 capsule 07/20/22 [Rx] HYDROcodone/APAP 5-325MG [[place] 5-325] 1 tab PO Q6HR PRN #28 tab 10/05/21 [Rx] Follow up Appointment(s)/Referral(s): Jasbir Clark, JONATHON [PHYSICIAN BOAT RIDE OPERATOR] - 10/20/21 Activity/Diet/Wound Care/Special Instructions: Discharge instructions: 1. Wound care and infection precautions, keep incision dry and covered while showering, no lotions, creams, moisturizers. No soaking, tubs, pools, hottubs. Do not scrub over the incision. 2. Nonweightbearing right upper extremity 3. Ice and elevate when necessary. Do not exceed 20 minutes per hour with ice pack. 4. Utilize arm sling to RUE until seen at first follow up appointment. 5. Nursing care. 6. Physical therapy. 7. Pain meds and anticoagulants per prescription. 8. Pain medication has potential to cause constipation. Increase oral fluid and fiber intake. Contact primary care provider if you have not had a bowel movement within 48 hours after discharge 9. No anti-inflammatory medication until discussed at first post operative visit, this including Motrin, Aleve, Mobic, Diclofenac, Aspirin. 10. Follow up in office at 2 weeks postop with Daniel Lara PA-C / Jasbir Clark PA-C 11. Follow up with your primary care doctor 7-10 days after discharge. 12. Contact [facility] with any questions, . Discharge Disposition: HOME WITH HOME HEALTH SERVICES
--- NOTE | 2021-10-05 09:50 | P.PN ---
Subjective Progress Note Date: 10/05/21 Principal diagnosis: Right rotator cuff arthropathy/glenohumeral joint osteoarthrosis Patient was seen at bedside this morning resting comfortably with sling to right upper extremity and lying in semirecumbent position. Patient says she is having some pain to the right shoulder, however, he should says when she gets pain medication does help ease the pain for several hours. Patient says she is looking forward to going home today. Patient says she has voided since surgery. Patient denies chest pain, fever, shortness breath, nausea, vomiting, change in vision, loss of bowel/bladder control. Objective - Vital Signs Vital signs: Vital Signs Temp 98.2 F 10/05/21 07: Pulse 66 10/05/21 08:33 Resp 18 10/05/21 07:22 BP 125/64 10/05/21 07:22 Pulse Ox 95 10/05/21 08:14 FiO2 Intake & Output 10/04/21 10/05/21 10/05/21 18:59 06:59 18:59 Intake Total 2181 Output Total 150 Balance 2030 Weight 64.6 kg Intake: IV 1101 Oral 1080 Output: Estimated Blood Loss 150 Other: Voiding Method Toilet Toilet # Voids 2 2 - Exam Right shoulder: Sling present on RUE. Incision is clean, dry, and intact. The dressing is in good condition. There is minimal soft tissue swelling and ecchymosis surrounding the medial and lateral aspects of the incision. Calf is soft, no tenderness with palpation. Plantar flexion, dorsiflexion, EHL, FHL are intact. Sensory exam to light touch throughout the extremity is intact. Radial pulses intact, 2+ bilaterally. dorsal pedis pulses 2+. Assessment and Plan Assessment: 1. Right rotator cuff arthropathy/glenohumeral joint osteoarthrosis Postoperative day 1 status post reverse right total shoulder arthroplasty Plan: 1. Right rotator cuff arthropathy/glenohumeral joint osteoarthrosis - reverse right total shoulder arthroplasty performed yesterday, 10/04/2021. Patient stable at bedside this morning with sling to right upper extremity. Discharge home today with health services 2. Appreciate medical management 3. Pain management - [place] 5 mg/325 mg 4. DVT prophylaxis - aspirin 81 mg twice a day 30 days 5. GI prophylaxis - Colace 6. Encourage incentive spirometer use 7. PT/OT - nonweightbearing right upper extremity; maintain right arm in sling 8. Discharge planning - discharge home today with health services Time with Patient: Less than 30
[2021-10-05 09:55] LABS: Basophils % (A) 0 %; Eosinophils # (A) 0.1 k/uL (0-0.7); Eosinophils % (A) 1 %; HCT 32.6 % (34.0-46.0); HGB 10.6 gm/dL (11.4-16.0); Lymphocytes # (A) 2.4 k/uL (1.0-4.8); Lymphocytes % (A) 25 %; MCH 30.8 pg (25.0-35.0); MCHC 32.4 g/dL (31.0-37.0); MCV 94.9 fL (80.0-100.0); Mean Platelet Volume 7.6; Monocytes # (A) 0.9 k/uL (0-1.0); Monocytes % (A) 9 %; Neutrophils % (A) 63 %; Platelet Count 240 k/uL (150-450); RBC 3.43 m/uL (3.80-5.40); RDW 13.4 % (11.5-15.5); WBC 9.5 k/uL (3.8-10.6)
--- NOTE | 2021-10-05 19:55 | P.CONS ---
History of Present Illness - Reason for Consult Consult date: 10/05/21 Medical management Requesting physician: Reji Gee - Chief Complaint Right shoulder surgery - History of Present Illness I'm covering for Dr. Deng Venegas today: This is a very pleasant 76-year-old patient follows with Dr. Hoda Bolden. Chronic stable medical conditions include atrial fibrillation, asthma, fibromyalgia, GERD, hard of hearing, hypertension, hyperlipidemia, hypothyroid, psoriasis, CAD with stent Patient underwent right shoulder surgery. Right dominant a sling. Some pain at the operative site. Did tolerate her breakfast. She was told her atrial fibrillation only has come about with her surgeries. She not on any anticoagulation. We're talking about a loop recorder. This morning no nausea vomiting. Did tolerate her breakfast. No chest pain or shortness of breath. Review of systems: GEN.: None EYES: None HEENT: None NECK: None RESPIRATORY: None CARDIOVASCULAR: None GASTROINTESTINAL: None GENITOURINARY: None MUSCULOSKELETAL: Joint pains LYMPHATICS: None HEMATOLOGICAL: None PSYCHIATRY: None NEUROLOGICAL: None Past medical history to include: Atrial fibrillation, asthma, fibromyalgia, TIA, GERD, hard of hearing, hypertension, hyperlipidemia, osteoarthritis, psoriasis, psoriatic arthritis, Queenie's thyroiditis, COVID, CAD with stent Social history: Lives alone. Started smoking at age of 17. In 2001. About one to one half packs a day. Family history: Lung cancer Physical examination: VITAL SIGNS: 98.2, 75, 18, 125/64, 95% on 3 L GENERAL: BMI 31.9, sitting up in a chair awake, comfortable. EYES: Pupils equal. Conjunctiva normal. HEENT: External appearance of nose and ears normal, oral cavity grossly normal. NECK: JVD not raised; masses not palpable. HEART: First and second heart sounds are normal; no edema. LUNGS: Respiratory rate normal; decreased breath sounds. ABDOMEN: Soft, nontender, liver spleen not palpable, no masses palpable. PSYCH: Alert and oriented x3; mood and affect normal. MUSCULOSKELETAL:No Clubbing/cyanosis;muscles-grossly intact. Evidence of OA. Right shoulder in a sling. Able to move her fingers. NEUROLOGICAL: Cranial nerves grossly intact; no facial asymmetry, power and sensation grossly intact. LYMPHATICS: No lymph nodes palpable in the axilla and neck INVESTIGATIONS, reviewed in the clinical context: White count 9.5 hemoglobin 10.6 platelets 240 Assessment and plan: -Right reverse total shoulder arthroplasty for right regular cuff arthroplasty general humeral joint osteoarthrosis Pain control. Right arm in a sling. -Paroxysmal atrial fibrillation Patient being followed by her PCP and cardiology for possible anticoagulation -Obesity BMI 31.9 Outpatient weight loss measures -Psoriasis with arthritis Humira -CAD with stent Lipitor 80 mg daily at bedtime aspirin Toprol-XL -Anxiety depression otherwise specified Cymbalta 60 mg a day -COPD Smoker Pulmicort 0.5 mg twice a day, marijuana twice a day, Singulair 10 mg daily at bedtime -GERD Protonix 40 mg daily at bedtime -Essential hypertension Norvasc 5 mg daily, Toprol-XL 100 mg daily at bedtime Care was discussed with the patient. Questions answered. She'll be following up with her own physicians for anticoagulation regarding underlying paroxysmal atrial fibrillation. Home medications reviewed. Thank you Dr. Gee Past Medical History Past Medical History: Atrial Fibrillation, Asthma, COPD, CVA/TIA, Fibromyalgia, GERD/Reflux, Hearing Disorder / Deafness, Hyperlipidemia, Hypertension, Osteoarthritis (OA), Pneumonia, Skin Disorder, Thyroid Disorder Additional Past Medical History / Comment(s): Hx 2 TIA's WEAKER ON RIGHT SIDE - last one in 2018. Psoriasis and Psoriatic Arthritis. Queenie's Thyroiditis.. Hx Pneumonia after back surgery. HYPOGLYCEMIA. MIGRAINE HEADACHE, Hard of Hearing, Covid History of Any Multi-Drug Resistant Organisms: None Reported Past Surgical History: Adenoidectomy, Appendectomy, Back Surgery, Heart Catheterization With Stent, Hysterectomy, Joint Replacement, Orthopedic Surgery, Pacemaker, Tonsillectomy Additional Past Surgical History / Comment(s): 3 cardiac stents, metal plate in lower jaw, right shoulder rotator cuff repair, bilateral thumb joints replaced, carpal tunnel release bilat hands, cyst removed from left hand, bilateral bunionectomy, shore neuroma left foot, bilateral cataract surgery, back surgery X2 10/04 & 02/05, PAIN CLINIC PROCEDURE. Past Anesthesia/Blood Transfusion Reactions: Previous Problems w/ Anesthesia, Motion Sickness, Postoperative Nausea & Vomiting (PONV) Date of Last Stent Placement:: 2018 Type of Cardiac Device: Loop Device Placement Date:: November 2016 Past Psychological History: Anxiety, Depression Additional Psychological History / Comment(s): Obsessive compulsive disorder. Smoking Status: Former smoker Past Alcohol Use History: Rare Additional Past Alcohol Use History / Comment(s): STARTED SMOKING AT AGE 17, quit smoking 2001, SMOKED 1- 1 1/2PPD. Past Drug Use History: Marijuana Additional Drug Use History / Comment(s): pt stated that she tried a edible mint to sleep once about 2 months ago but it didn't work - Past Family History Father Family Medical History: Cancer Additional Family Medical History / Comment(s): Lung Cancer. Mother Family Medical History: Cancer, Pulmonary Embolus Additional Family Medical History / Comment(s): Liver cancer. Brother(s) Family Medical History: Cancer Additional Family Medical History / Comment(s): Prostate Cancer. Sister(s) Family Medical History: Cancer Additional Family Medical History / Comment(s): 2 of 3 sister's had cancer. Medications and Allergies Home Medications Medication Instructions Recorded Confirmed Type Arformoterol Tartrate [Brovana] 15 mcg INHALATION BID 01/06/20 10/04/21 History Ascorbic Acid [Vitamin C] 500 mg PO DAILY 01/06/20 10/04/21 History Atorvastatin [Lipitor] 80 mg PO HS 01/06/20 10/04/21 History Calcium Carbonate [Calcium] 600 mg PO BID 01/06/20 10/04/21 History Fluticasone Nasal [place] [Flonase 1 spray EA NOSTRIL DAILY PRN 01/06/20 10/04/21 History Nasal [place]] Pantoprazole [Protonix] 40 mg PO HS 01/06/20 10/04/21 History Xoledronic 5 mg IVPB Q365D 01/30/20 10/04/21 History Yupelri 3 mg INHALATION DAILY 01/30/20 10/04/21 History Cholecalciferol [Vitamin D3 (25 25 mcg PO DAILY 10/08/20 10/04/21 History Mcg = 1000 Iu)] Cyanocobalamin (Vitamin B-12) 500 mcg PO DAILY 10/08/20 10/04/21 History [Vitamin B-12] Acetaminophen Tab [Tylenol] 650 mg PO BID PRN 11/04/20 10/04/21 History Budesonide [Pulmicort] 0.5 mg INHALATION BID 06/09/21 10/04/21 History Metoprolol Succinate (ER) [Toprol 100 mg PO HS 06/09/21 10/04/21 History XL] Montelukast [Singulair] 10 mg PO HS 06/09/21 10/04/21 History amLODIPine [Norvasc] 5 mg PO DAILY 06/09/21 10/04/21 History Adalimumab [Humira(Cf) Pen] 40 mg SQ Q14D 08/12/21 10/04/21 History DULoxetine HCL [Cymbalta] 60 mg PO DAILY 08/12/21 10/04/21 History Ferrous Sulfate [Iron] 325 mg PO DAILY 08/12/21 10/04/21 History Zinc 50 mg PO DAILY 08/12/21 10/04/21 History Loratadine-Pseudoeph 10-240 mg 1 tab PO DAILY 10/03/21 10/04/21 History [Claritin-D 24 Hour] Aspirin 325 mg PO DAILY #30 tab 10/05/21 Rx Docusate [Colace] 100 mg PO DAILY #30 capsule 10/05/21 Rx HYDROcodone/APAP 5-325MG [[place] 1 tab PO Q6HR PRN #28 tab 10/05/21 Rx 5-325] Allergies Allergy/AdvReac Type Severity Reaction Status Date / Time lisinopril Allergy Swelling Verified 10/04/21 06:24 adhesive AdvReac Rash/Hives Verified 10/04/21 06:24 oxycodone [From OxyContin] AdvReac Nausea & Verified 10/04/21 06:24 Vomiting GERMACIDAL DISPOSABLE WIPE Allergy WHEEZING, Uncoded 10/04/21 06:24 RUNNY NOSE AND COUGHING Physical Exam Vitals: Vital Signs Temp Pulse Pulse Resp BP Pulse Ox 10/05/21 14:19 91 L 10/05/21 10:17 91 L 10/05/21 10:13 94 L 10/05/21 08:33 66 10/05/21 08:14 66 95 10/05/21 07:22 98.2 F 75 18 125/64 95 10/05/21 01:39 98.8 F 76 16 128/67 98 10/04/21 20:04 62 10/04/21 19:55 68 Intake and Output 10/05/21 10/05/21 10/05/21 06:59 14:59 22:59 Other: Voiding Method Toilet # Voids 2 Results CBC & Chem 7: 10/05/21 09:34 Labs: Abnormal Lab Results - Last 24 Hours (Table) 07/20/22 Range/Units 09:34 RBC 3.43 L (3.80-5.40) m/uL Hgb 10.6 L (11.4-16.0) gm/dL Hct 32.6 L (34.0-46.0) %
== END 2021-10-05 14:27 | disposition home health service (06) ==
LOC: OR 05:46 → 4SSUR 09:49 → OR 10-05 14:27
PROVIDERS: ATTEND Orthopaedic Surgery
DX: M19.011 Primary osteoarthritis, right shoulder (principal); I10 Essential (primary) hypertension; E78.00 Pure hypercholesterolemia, unspecified; F32.A Depression, unspecified; D64.9 Anemia, unspecified; Z79.899 Other long term (current) drug therapy; K21.9 Gastro-esophageal reflux disease without esophagitis; Z79.51 Long term (current) use of inhaled steroids; Z88.5 Allergy status to narcotic agent; Z88.8 Allergy status to other drugs, medicaments and biological substances; Z91.09 Other allergy status, other than to drugs and biological substances; Z87.891 Personal history of nicotine dependence
CPT/HCPCS: 94640 ×2; 85025; 88300; 73020; 23472; C1776; J2250; J1100; J0690 ×2; J2405; J3010; J1170; J2370; J0330; J2704; J2001

== ENCOUNTER → 2022-01-12 | Outpatient (CLI) | payer MEDICARE, OTHER ==
[2022-01-12 10:41] VITALS: BP 161/75; PULSE 76; RESP 18; TEMP 98.1
--- NOTE | 2022-01-12 14:34 | P.PAINPG ---
PQRS Measure Charge Sheet Comment: A 76 yr old female with a history of severe and chronic low back pain secondary to Lumbar DDD, spondylosis, facet arthropathy without myelopathy and BL Sacroiliitis presents today for LBP/ tailbone pain. Pain level is currently at 9/10 in intensity, constant, localized in the L lower lumbar spine where it m eets the tailbone, dull/ achy/ sharp in character w shooting towards the L buttock. 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 Pain is alleviated with PT x 2 wks of which she is currently in, medications (Tylenol prn, Flexeril, Richard), heating seats, ice, toipicals, repositioning and rest. Interventional pain procedures completed include L TFESI L5-S1 x1, BL SI injections x2 Patient is currently on Tyl, Flexeril, Richard Patient denies any side effects of the medication(s), denies excessive drowsiness or sleepiness, denies suicidal ideation and reports that the current pain medication is helping to control the pain and improve activities of daily living. Patient denies any motor or sensory deficits. Patient denies any fever or night sweats, denies any change in the bowel movements or urination. Physical Examination: -Constitutional: Cooperative. Not in acute distress . - Neurologic: Cranial nerve II to XII intact. No focal neurological def icits. - Psychatric: Alert & oriented x 3. Matching mood & appropriate affect. Judgment and insight intact. - Musculoskeletal: Cervical spine: Muscle bulk/ tone/ strength in the bilateral upper extremities normal Vertebral body tenderness to palpation over [place] test positive Distraction test positive Facet loading test positive Thoracic spine Muscle bulk / tone/ strength in the bilateral paraspinal muscles normal Vertebral body tender to palpation over Facet loading test positive Lumbar spine: Motor bulk/ tone/ strength lower extremities , thigh and legs : 5/5 Deep tendon reflexes : Normal Knee Jerk. Normal Ankle Jerk . Vertebral body tenderness to palpation over Lumbar Facet Loading Test positive Straight Leg Raise: positive at 30 degrees right side/ left side Gaenslen's Test positive Sacral spine : Severe tenderness over the Sacroiliac joint: right side / left side Range of motion: Flexion of the lumbar spine <60 degrees Range of motion: Extension of the lumbar spine <20 degrees Gaenslen's Test positive L Manoj test: positive right side / left side Thigh Thrust Test L Sacral Thrust Test Assessment and plan: Chronic low back pain secondary to lumbar DDD, spondylosis with facet arthropathy without myelopathy and BL Sacroiliitis Recommendation of L SI injection. May need a series, up to 4 within a 12 mo period, for optimal pain relief. Risks, benefits of procedure discussed and pt verbalized understanding. Admits to anticoagulant use or medical history of diabetes. Protocol for discontinuation/ continuation of medications romi procedure discussed. Need medical clearance of Coumadin from Dr Carnes, [facility], in [place], [place]. All patient questions answered I have spent less than 30 minutes on patient care today. Dr Tang was available by phone for the evaluation of this patient. The time was used to review the medical records including relevant urine studies and Prescription his tory (MAPs), review of the available imaging, evaluation and examination of the patient, coordination of care with the medical staff and if applicable referring physicians, as well as creation of the medical record PQRS Narrative: Hx Alcohol Use (MH) Yes Home Medications: Ambulatory Orders Arformoterol Tartrate [Brovana] 15 mcg INHALATION BID 01/06/20 Ascorbic Acid [Vitamin C] 500 mg PO DAILY 01/06/20 Atorvastatin [Lipitor] 80 mg PO HS 01/06/20 Calcium Carbonate [Calcium] 600 mg PO BID 01/06/20 Fluticasone Nasal [place] [Flonase Nasal [place]] 1 spray EA NOSTRIL DAILY PRN 01/06/20 Pantoprazole [Protonix] 40 mg PO HS 01/06/20 Xoledronic 5 mg IVPB Q365D 01/30/20 Yupelri 3 mg INHALATION DAILY 01/30/20 Cholecalciferol [Vitamin D3 (25 Mcg = 1000 Iu)] 25 mcg PO DAILY 10/08/20 Cyanocobalamin (Vitamin B-12) [Vitamin B-12] 500 mcg PO DAILY 10/08/20 Acetaminophen Tab [Tylenol] 650 mg PO BID PRN 11/04/20 Budesonide [Pulmicort] 0.5 mg INHALATION BID 06/09/21 Metoprolol Succinate (ER) [Toprol XL] 100 mg PO HS 06/09/21 Montelukast [Singulair] 10 mg PO HS 06/09/21 amLODIPine [Norvasc] 5 mg PO DAILY 06/09/21 Adalimumab [Humira(Cf) Pen] 40 mg SQ Q14D 08/12/21 DULoxetine HCL [Cymbalta] 60 mg PO DAILY 08/12/21 Ferrous Sulfate [Iron] 325 mg PO DAILY 08/12/21 Zinc 50 mg PO DAILY 08/12/21 Loratadine-Pseudoeph 10-240 mg [Claritin-D 24 Hour] 1 tab PO DAILY 10/03/21 Aspirin 325 mg PO DAILY #30 tab 10/05/21 Docusate [Colace] 100 mg PO DAILY #30 capsule 10/05/21 HYDROcodone/APAP 5-325MG [[place] 5-325] 1 tab PO Q6HR PRN #28 tab 10/05/21 Controlled Substance Measures - Controlled Substance Measures Is patient prescribed a controlled substance at discharge?: No
== END ==
LOC: PNWHC3 10:12
PROVIDERS: ATTEND Specialist
DX: M47.816 Spondylosis without myelopathy or radiculopathy, lumbar region (principal); M46.1 Sacroiliitis, not elsewhere classified; M51.36 Other intervertebral disc degeneration, lumbar region; G89.29 Other chronic pain; Z79.01 Long term (current) use of anticoagulants; E11.9 Type 2 diabetes mellitus without complications; Z79.84 Long term (current) use of oral hypoglycemic drugs; Z88.5 Allergy status to narcotic agent; Z91.048 Other nonmedicinal substance allergy status; Z88.8 Allergy status to other drugs, medicaments and biological substances
CPT/HCPCS: 99211

== ENCOUNTER 2022-02-08 10:16 | Day surgery (SDC) | payer MEDICARE, OTHER ==
--- NOTE | 2022-02-07 10:06 | P.HPOR ---
History of Present Illness H&P Date: 02/07/22 Chief Complaint: Right middle finger trigger finger Subjective: This is a 76 year old female that presents today for follow up evaluation regarding follow up of her right middle finger trigger finger. She received an injection several months prior which helped but her symptoms have returned. Physical Examination: RUE: AIN/PIN/Radial/Ulnar/Median motor intact. Radial/Ulnar/Median SILT. 2+/4 Radial/Ulnar pulses palpated. RMF TTP at A1 niru with locking catching and clicking of digit. Impression: 1.) Right middle finger trigger finger Plan: Diagnosis and treatment options were discussed with the patient. She would like to proceed with right middle finger A1 niru release in the operating room. Risks and benefits of surgery including bleeding, infection, damage to surrounding tissue, need for further surgery, residual numbness were discussed and the patient wished to go forward with surgery in the form of right middle finger A1 niru release. The patient was agreeable with this plan of action. Follow up: 10 days post op -Kevin Hale DO Orthopedic Hand/Upper Extremity Surgeon Past Medical History Past Medical History: Atrial Fibrillation, Asthma, COPD, CVA/TIA, Fibromyalgia, GERD/Reflux, Hearing Disorder / Deafness, Hyperlipidemia, Hypertension, Osteoarthritis (OA), Pneumonia, Skin Disorder, Thyroid Disorder Additional Past Medical History / Comment(s): Hx 2 TIA's WEAKER ON RIGHT SIDE - last one in 2018. Psoriasis and Psoriatic Arthritis. Queenie's Thyroiditis.. Hx Pneumonia after back surgery. HYPOGLYCEMIA. MIGRAINE HEADACHE, Hard of Hearing, Covid 03-25-2019 History of Any Multi-Drug Resistant Organisms: None Reported Past Surgical History: Adenoidectomy, Appendectomy, Back Surgery, Heart Catheterization With Stent, Hysterectomy, Joint Replacement, Orthopedic Surgery, Tonsillectomy Additional Past Surgical History / Comment(s): 3 cardiac stents, metal plate in lower jaw, right shoulder rotator cuff repair, bilateral thumb joints replaced, carpal tunnel release bilat hands, cyst removed from left hand, bilateral bunionectomy, shore neuroma left foot, bilateral cataract surgery, back surgery X2 10/04 & 02/05, PAIN CLINIC PROCEDURE.pt states loop recorder is and it is being left in place. Past Anesthesia/Blood Transfusion Reactions: Previous Problems w/ Anesthesia, Postoperative Nausea & Vomiting (PONV) Additional Past Anesthesia/Blood Transfusion Reaction / Comment(s): no blood transfusions Date of Last Stent Placement:: 2018 Type of Cardiac Device: Loop Device Placement Date:: November 2016 Smoking Status: Former smoker - Past Family History Mother Family Medical History: Cancer, Pulmonary Embolus Additional Family Medical History / Comment(s): Liver cancer. Father Family Medical History: Cancer Additional Family Medical History / Comment(s): Lung Cancer. Brother(s) Family Medical History: Cancer Additional Family Medical History / Comment(s): Prostate Cancer. Sister(s) Family Medical History: Cancer Additional Family Medical History / Comment(s): 2 of 3 sister's had cancer - cervical, tumor in abd went to lung and liver. Medications and Allergies Home Medications Medication Instructions Recorded Confirmed Type Arformoterol Tartrate [Brovana] 15 mcg INHALATION BID 01/06/20 02/03/22 History Atorvastatin [Lipitor] 80 mg PO HS 01/06/20 02/03/22 History Calcium Carbonate [Calcium] 600 mg PO DAILY 01/06/20 02/03/22 History Fluticasone Nasal [place] [Flonase 1 spray EA NOSTRIL DAILY PRN 01/06/20 02/03/22 History Nasal [place]] Pantoprazole [Protonix] 40 mg PO AC-SUPPER 01/06/20 02/03/22 History Yupelri 3 mg INHALATION DAILY 01/30/20 02/03/22 History Acetaminophen Tab [Tylenol] 650 mg PO BID PRN 11/04/20 02/03/22 History Budesonide [Pulmicort] 0.5 mg INHALATION BID 06/09/21 02/03/22 History Metoprolol Succinate (ER) [Toprol 100 mg PO HS 06/09/21 02/03/22 History XL] Montelukast [Singulair] 10 mg PO HS 06/09/21 02/03/22 History amLODIPine [Norvasc] 5 mg PO DAILY 06/09/21 02/03/22 History Adalimumab [Humira(Cf) Pen] 40 mg SQ Q14D 08/12/21 02/03/22 History Ferrous Sulfate [Iron] 325 mg PO DAILY 08/12/21 02/03/22 History Loratadine-Pseudoeph 10-240 mg 1 tab PO DAILY 10/03/21 02/03/22 History [Claritin-D 24 Hour] Amitriptyline HCl 10 mg PO HS 02/03/22 02/03/22 History Aspirin 81 mg PO HS 02/03/22 02/03/22 History Unk Multi Vitamin 1 tab PO DAILY 02/03/22 02/03/22 History Warfarin [Coumadin] 2.5 mg PO MOTUWETHFR 02/03/22 02/03/22 History Warfarin [Coumadin] 5 mg PO SUSA 02/03/22 02/03/22 History Allergies Allergy/AdvReac Type Severity Reaction Status Date / Time lisinopril Allergy Swelling Verified 10/04/21 06:24 adhesive AdvReac Rash/Hives Verified 10/04/21 06:24 oxycodone [From OxyContin] AdvReac Nausea & Verified 10/04/21 06:24 Vomiting GERMACIDAL DISPOSABLE WIPE Allergy WHEEZING, Uncoded 02/03/22 15:16 RUNNY NOSE AND COUGHING Physical Examination Osteopathic Statement: *. No significant issues noted on an osteopathic structural exam other than those noted in the History and Physical/Consult.
[~2022-02-08 10:16] MED LIST changes: -ACETAMINOPHEN TAB 500 MG TAB PO PRN; -HYDROmorphone 0.5 MG/0.5 ML SYRINGE IVP PRN; +LACTATED RINGERS 1,000 ML IV SCH; -MELOXICAM 7.5 MG TAB PO PRN; +MIDAZOLAM 2 MG/2 ML VIAL IV PRN; +ONDANSETRON 4 MG/2 ML VIAL IVP ONE; +Pre Op ABX Message 1 EACH MISC MISCELLANE ONE; -TRANEXAMIC ACID IN NACL,ISO-OS 1,000 MG in SALINE 1 100ML.BAG IVPB PRN
[2022-02-08 10:53] VITALS: TEMP 98.2
[2022-02-08 11:07] LABS: Glucose,Whole Blood 91 mg/dL (70-110)
[2022-02-08] MEDS ORDERED: fentaNYL (PF) 50 MCG/ML 2 ML AMP ONE (12:05)
[2022-02-08] MEDS ORDERED: PROPOFOL 10 MG/ML 20 ML VIAL IV ONE (12:05)
[2022-02-08] MEDS ORDERED: MIDAZOLAM 2 MG/2 ML VIAL ONE (12:05)
[2022-02-08] MEDS ORDERED: LIDOCAINE 1% INJ 10MG/ML (10 ML MDV) SQ ONE (12:09)
[2022-02-08] MEDS ORDERED: BUPIVACAINE (PF) 0.5% 30 ML VIAL SQ ONE (12:09)
[2022-02-08 12:57] VITALS: BP 142/94; PULSE 72; RESP 16
--- NOTE | 2022-02-09 09:03 | P.OP ---
Date of Procedure: 02/08/22 Preoperative Diagnosis: Right middle finger trigger finger Postoperative Diagnosis: right middle finger trigger finger Procedure(s) Performed: Right middle finger A1 niru release Anesthesia: MAC Surgeon: Kevin Hale Estimated Blood Loss (ml): 0 Pathology: none sent Condition: stable Disposition: PACU Description of Procedure: This is a 77 year old female who presents today for a right middle finger trigger finger A1 niru release after having failed conservative treatment. Risks and benefits of surgery were discussed with the patient including bleeding, damage to surrounding tissue, infection, need for further surgery as well as risks of anesthesia including pulmonary embolism and even and the patient wished to proceed with surgical intervention. The patient was seen in the pre-operative area by myself. Consent and H&P were completed and updated. The correct extremity was marked in the pre-operative area by myself and all other questions were answered. Operative Narrative: The patient was brought to the operating room by the department of anesthesia. They remained on the portable stretcher and a rolling hand table was brought to the side of the operative extremity. Pre-operative time out was performed indicating the correct patient, procedure and laterality. All in the room agreed. Pre-operative antibiotics were given prior to skin incision. The patient was then drifted off to sleep by the department of anesthesia. MAC anesthesia was utilized and a 50:50 mixture of 1% Lidocaine and 0.5% bupivacaine was injected into the subcutaneous tissues of the palmar skin, 4ccs total. A nonsterile tourniquet was then applied to the operative extremity and the right upper extremity was then prepped and draped in normal sterile fashion. The operative extremity was the exsanguinated with an esmarch bandage and the tourniquet was inflated to 250mmHg. Oblique incision was made at the base of the right middle finger finger. Blunt dissection was taken down to the level of the A1 niru. Ragnell retractors were placed both radially and ulnarly to protect neurovascular bundles. Littler tenotomy scissors were then used to release the A1 niru from proximal to distal under direct visualization. Proximal fascial attachments were released. The tendon was then taken through range of motion and no locking or catching was appreciated with both active and passive range of motion. The wound was then closed with interrupted 4-0 nylon sutures in a horizontal mattress fashion. Sterile dressing consisting of adaptic, 4x4s, webril, and an genet wrap was applied. Tourniquet was let down and the hand was immediately well perfused. The patient was then woken by the department of anesthesia and transferred to PACU in stable condition. Kevin Hale D.O. Orthopedic Hand/Upper Extremity Surgeon
== END 2022-02-08 13:16 | disposition home or self-care (01) ==
LOC: OR 10:16
PROVIDERS: ATTEND Orthopaedic Surgery Hand Surgery
DX: M65.331 Trigger finger, right middle finger (principal); I48.91 Unspecified atrial fibrillation; J44.9 Chronic obstructive pulmonary disease, unspecified; M79.7 Fibromyalgia; K21.9 Gastro-esophageal reflux disease without esophagitis; E78.5 Hyperlipidemia, unspecified; I10 Essential (primary) hypertension; M19.90 Unspecified osteoarthritis, unspecified site; J18.9 Pneumonia, unspecified organism; E07.9 Disorder of thyroid, unspecified; L40.50 Arthropathic psoriasis, unspecified; E06.3 Autoimmune thyroiditis; G43.909 Migraine, unspecified, not intractable, without status migrainosus; H91.90 Unspecified hearing loss, unspecified ear; K91.0 Vomiting following gastrointestinal surgery; Z90.49 Acquired absence of other specified parts of digestive tract; Z90.89 Acquired absence of other organs; Z95.5 Presence of coronary angioplasty implant and graft; Z98.890 Other specified postprocedural states; Z90.710 Acquired absence of both cervix and uterus; Z87.891 Personal history of nicotine dependence; Z80.1 Family history of malignant neoplasm of trachea, bronchus and lung; Z80.42 Family history of malignant neoplasm of prostate; Z79.51 Long term (current) use of inhaled steroids; Z79.899 Other long term (current) drug therapy; Z79.1 Long term (current) use of non-steroidal anti-inflammatories (NSAID); Z88.8 Allergy status to other drugs, medicaments and biological substances; Z88.5 Allergy status to narcotic agent
CPT/HCPCS: 26055; J2250; J1100; J2405; J3010; J2001; J2704

== ENCOUNTER 2022-03-16 11:24 | Day surgery (SDC) | payer MEDICARE, OTHER ==
[2022-03-15 08:27] VITALS: BMI 30.7
[2022-03-16 11:55] VITALS: RESP 16; TEMP 97
[2022-03-16 12:11] LABS: Glucose,Whole Blood 74 mg/dL (70-110)
[2022-03-16] MEDS ORDERED: LACTATED RINGERS 1,000 ML IV SCH (12:15)
[2022-03-16] MEDS ORDERED: TRIAMCINOLONE ACETONIDE 40 MG/ML 1 ML VIAL ONE (12:23)
[2022-03-16] MEDS ORDERED: ROPIVACAINE 5 MG/ML 20 ML AMPULE ONE (12:23)
--- NOTE | 2022-03-16 12:31 | P.PCN ---
Date of Procedure: 03/16/22 Description of Procedure: Preoperative diagnoses: sacroiliac joint dysfunction and sacroiliitis on the left side Postoperative diagnoses: same as preoperative diagnosis. Procedure= Left sacroiliac joint steroid injection under fluoroscopic guidance. Anesthesia= local anesthesia with lidocaine 1% only Estimated blood loss=minimal. Procedure indication= the patient had a history of severe chronic low back pain, diagnosed with sacroiliitis and lumbar sacral facet arthropathy unresponsive to conservative treatment. Procedure description= the patient was seen and identified in the preoperative holding area, risks and benefits and alternative of the procedure and possible complications discussed with the patient, patient signed the consent. an IV was started, and vital signs were monitored and were stable throughout the procedure, patient was placed in the prone position or table and the lumbosacral area was prepped and draped with a sterile fashion, vital signs were closely monitored during the procedure.The sacroiliac joint was identified on the AP view of fluoroscopy then the C-arm was tilted to the contralateral oblique position to superimpose the anterior and posterior joint lines on each other and to have a unified joint line with the target point at the inferior one third of this line. I used 22-gauge 3-1/2 inch Quincke spinal needle for this procedure and after getting into the sacroiliac joint I injected 40 mg of Kenalog +2 MLS of Ropivacaine 0.5%. Patient tolerated the procedure well without any complication. The patient returned to supine position after the back was cleaned and a Band- Aid applied, the patient transported to recovery room in stable condition and he was monitored for 30 minutes before she was discharged home in stable condition . patient will follow up with the pain clinic in a few weeks. A copy of the needle placement was saved to the C-arm machine.
[2022-03-16 12:50] VITALS: BP 130/83; PULSE 76
--- NOTE | 2022-03-16 13:56 | FL ---
Intraoperative/procedural fluoroscopic services were provided. Total fluoroscopy time is 4 seconds wi th a total of 1 submitted images to PACS. Please see the operative/procedural note for further detail s.
== END 2022-03-16 13:03 | disposition home or self-care (01) ==
LOC: ORPAIN 11:24
PROVIDERS: ATTEND Anesthesiology
DX: M46.1 Sacroiliitis, not elsewhere classified (principal); M53.3 Sacrococcygeal disorders, not elsewhere classified; M47.818 Spondylosis without myelopathy or radiculopathy, sacral and sacrococcygeal region; G89.29 Other chronic pain; Z91.048 Other nonmedicinal substance allergy status; Z88.5 Allergy status to narcotic agent; Z88.8 Allergy status to other drugs, medicaments and biological substances
CPT/HCPCS: J3301; J2795; G0260; 27096

== ENCOUNTER → 2022-06-26 | Outpatient (CLI) | payer MEDICARE, OTHER ==
[2022-06-26 09:44] VITALS: BP 130/81; PULSE 70; RESP 18; TEMP 98
--- NOTE | 2022-06-26 16:27 | P.PAINPG ---
PQRS Measure Charge Sheet Comment: A 77 yr old female with a history of severe and chronic LBP since May 2022 secondary to lumbar DDD and spondylosis with facet arthropathy without myelopathy presents today for evaluation s/p L SI injection. Pt states she experienced 90 % pain relief x 3 1/2 mo s/p procedure. Pain level is provoked at 7 /10 in intensity, constant, localized in the lower lumbar spine, L>R, dull/ achy/ sharp in character w shooting towards the L thigh. Pain is provoked by sitting for periods of 30 min or more. 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 Pain is alleviated with PT x 6 wks since Mar 2022, heat, ice, medications (Tyl), topicals, repositioning and rest. Interventional pain procedures completed include L SI (Feb 2022) Patient is currently on Tyl Patient denies any side effects of the medication(s), denies excessive drowsiness or sleepiness, denies suicidal ideation and reports that the current pain medication is helping to control the pain and improve activities of daily living. Patient denies any motor or sensory deficits. Patient denies any fever or night sweats, denies any change in the bowel movements or urination. Physical Examination: -Constitutional: Cooperative. Not in acute distress . - Neurologic: Cranial nerve II to XII intact. No focal neurological deficits. - Psychatric: Alert & oriented x 3. Matching mood & appropriate affect. Judgment and insight intact. - Musculoskeletal: Cervical spine: Muscle bulk/ tone/ strength in the bilateral upper extremities normal Vertebral body tenderness to palpation over Spurling test positive Distraction test positive Facet loading test positive TTP Thoracic spine Muscle bulk / tone/ strength in the bilateral paraspinal muscles normal Vertebral body tender to palpation over Facet loading test positive TTP Lumbar spine: Motor bulk/ tone/ strength lower extremities , thigh and legs : 5/5 Deep tendon reflexes : Normal Knee Jerk. Normal Ankle Jerk . Vertebral body tenderness to palpation over Lumbar Facet Loading Test positive Straight Leg Raise: positive at 30 degrees right side/ left side Gaenslen's Test positive Sacral spine : Severe tenderness over the Sacroiliac joint: right side / left side Range of motion: Flexion of the lumbar spine <60 degrees Range of motion: Extension of the lumbar spine <20 degrees Gaenslen's Test positive right side < left side Manoj test: positive right side / left side Thigh Thrust Test positive right side / left side Sacral Thrust Test positive right side < left side Assessment and plan: Chronic LBP secondary to lumbar DDD, spondylosis with facet arthropathy without myelopathy Recommendation of BL SI injection. May need a series for optimal pain relief. Risks, benefits of procedure discussed and pt verbalized understanding. Admits to anticoagulant use or medical history of diabetes. Protocol for discontinuation/ continuation of medications romi procedure discussed. All questions answered. I have spent less than 30 minutes on patient care today. Dr Tang was available by phone for the evaluation of this patient. The time was used to review the medical records including relevant urine studies and Prescription history (MAPs), review of the available imaging, evaluation and examination of the patient, coordination of care with the medical staff and if applicable referring physicians, as well as creation of the medical record PQRS Narrative: Hx Alcohol Use (MH) Yes Home Medications: Ambulatory Orders Arformoterol Tartrate [Brovana] 15 mcg INHALATION BID 01/06/20 Atorvastatin [Lipitor] 80 mg PO HS 01/06/20 Calcium Carbonate [Calcium] 600 mg PO DAILY 01/06/20 Fluticasone Nasal [place] [Flonase Nasal [place]] 1 spray EA NOSTRIL DAILY PRN 01/06/20 Pantoprazole [Protonix] 40 mg PO AC-SUPPER 01/06/20 Yupelri 3 mg INHALATION DAILY 01/30/20 Acetaminophen Tab [Tylenol] 650 mg PO BID PRN 11/04/20 Budesonide [Pulmicort] 0.5 mg INHALATION BID 06/09/21 Metoprolol Succinate (ER) [Toprol XL] 100 mg PO HS 06/09/21 Montelukast [Singulair] 10 mg PO HS 06/09/21 amLODIPine [Norvasc] 5 mg PO DAILY 06/09/21 Adalimumab [Humira(Cf) Pen] 40 mg SQ Q14D 08/12/21 Ferrous Sulfate [Iron] 325 mg PO DAILY 08/12/21 Loratadine-Pseudoeph 10-240 mg [Claritin-D 24 Hour] 1 tab PO DAILY 10/03/21 Amitriptyline HCl 10 mg PO HS 02/03/22 Aspirin 81 mg PO HS 02/03/22 Unk Multi Vitamin 1 tab PO DAILY 02/03/22 Warfarin [Coumadin] 2.5 mg PO TU 02/03/22 Warfarin [Coumadin] 5 mg PO SUMOWETHFRSA 02/03/22 Controlled Substance Measures - Controlled Substance Measures Is patient prescribed a controlled substance at discharge?: No
== END ==
LOC: PNWHC3 08:41
PROVIDERS: ATTEND Specialist
DX: M51.36 Other intervertebral disc degeneration, lumbar region (principal); M47.816 Spondylosis without myelopathy or radiculopathy, lumbar region; G89.29 Other chronic pain; Z79.82 Long term (current) use of aspirin; Z88.8 Allergy status to other drugs, medicaments and biological substances; Z88.5 Allergy status to narcotic agent; Z91.048 Other nonmedicinal substance allergy status
CPT/HCPCS: 99211

== ENCOUNTER → 2022-08-09 | Outpatient (CLI) | payer MEDICARE, OTHER ==
[2022-08-09 11:39] VITALS: BP 134/90; PULSE 69; RESP 18; TEMP 97.7
--- NOTE | 2022-08-09 13:47 | P.PAINPG ---
PQRS Measure Charge Sheet Comment: A 77 yr old female with a history of severe and chronic LBP secondary to lumbar DDD and spondylosis with facet arthropathy without myelopathy, BL Sacroiliitis presents today for evaluation s/p BL SI injection. Pt states she experienced 100 % pain relief x 3 wks s/p procedure. Pain level is provoked at 5 /10 in intensity, constant, localized in the lumbar spine where it meets the tailbone, dull/ achy/ sharp in character w shooting towards the hips, L >R. Pain is provoked by sitting for periods of 1 hr or mroe. Pain is alleviated with PT w massage x 6 wks Mar 2022, heat, meds, topicals, sitting on a heating pad, repositioning and rest. Interventional pain procedures completed include BL SI injection Patient is currently on Tyl Patient denies any side effects of the medication(s), denies excessive drowsiness or sleepiness, denies suicidal ideation and reports that the current pain medication is helping to control the pain and improve activities of daily living. Patient denies any motor or sensory deficits. Patient denies any fever or night sweats, denies any change in the bowel movements or urination. Physical Examination: -Constitutional: Cooperative. Not in acute distress . - Neurologic: Cranial nerve II to XII intact. No focal neurological deficits. - Psychatric: Alert & oriented x 3. Matching mood & appropriate affect. Judgment and insight intact. - Musculoskeletal: Cervical spine: Muscle bulk/ tone/ strength in the bilateral upper extremities normal Vertebral body tenderness to palpation over Spurling test positive Distraction test positive Facet loading test positive TTP Thoracic spine Muscle bulk / tone/ strength in the bilateral paraspinal muscles normal Vertebral body tender to palpation over Facet loading test positive TTP Lumbar spine: Motor bulk/ tone/ strength lower extremities , thigh and legs : 5/5 Deep tendon reflexes : Normal Knee Jerk. Normal Ankle Jerk . Vertebral body tenderness to palpation over Aden Test positive TPs w TTP palpated over L L4-S1 Lumbar Facet Loading Test positive Straight Leg Raise: positive at 30 degrees right side/ left side Gaenslen's Test positive Sacral spine : Severe tenderness over the Sacroiliac joint: right side / left side Range of motion: Flexion of the lumbar spine <60 degrees Range of motion: Extension of the lumbar spine <20 degrees Gaenslen's Test positive right side / left side Manoj test: positive right side / left side Thigh Thrust Test positive right side / left side Sacral Thrust Test positive right side / left side Assessment and plan: Chronic LBP secondary to lumbar DDD, spondylosis with facet arthropathy without myelopathy, BL Sacroiliitis Recommendation of L L3-S2 TPIs. May need a series of injections for optimal pain relief. Risks, benefits of procedure discussed and pt verbalized understanding. Admits to anticoagulant use or medical history of diabetes. Protocol for discontinuation/ continuation of medications romi procedure discussed. Minimal anesthesia provided, if clinically indicated, consisting of Versed and Fentanyl. All questions answered. I have spent less than 30 minutes on patient care today. Dr Tang was available by phone for the evaluation of this patient. The time was used to review the medical records including relevant urine studies and Prescription history (MAPs), review of the available imaging, evaluation and examination of the patient, coordination of care with the medical staff and if applicable referring physicians, as well as creation of the medical record PQRS Narrative: Hx Alcohol Use (MH) Yes Home Medications: Ambulatory Orders Arformoterol Tartrate [Brovana] 15 mcg INHALATION BID 01/06/20 Atorvastatin [Lipitor] 80 mg PO HS 01/06/20 Calcium Carbonate [Calcium] 1,200 mg PO DAILY 01/06/20 Fluticasone Nasal [place] [Flonase Nasal [place]] 1 spray EA NOSTRIL DAILY PRN 01/06/20 Pantoprazole [Protonix] 40 mg PO AC-SUPPER 01/06/20 Yupelri 3 mg INHALATION DAILY 01/30/20 Acetaminophen Tab [Tylenol] 650 mg PO BID PRN 11/04/20 Budesonide [Pulmicort] 0.5 mg INHALATION BID 06/09/21 Metoprolol Succinate (ER) [Toprol XL] 100 mg PO HS 06/09/21 Montelukast [Singulair] 10 mg PO HS 06/09/21 amLODIPine [Norvasc] 5 mg PO HS 06/09/21 Adalimumab [Humira(Cf) Pen] 40 mg SQ Q14D 08/12/21 Ferrous Sulfate [Iron] 325 mg PO DAILY 08/12/21 Loratadine-Pseudoeph 10-240 mg [Claritin-D 24 Hour] 1 tab PO DAILY 10/03/21 Amitriptyline HCl 25 mg PO HS 02/03/22 Aspirin 81 mg PO HS 02/03/22 Ezetimibe [Zetia] 10 mg PO HS 07/19/22 Controlled Substance Measures - Controlled Substance Measures Is patient prescribed a controlled substance at discharge?: No
== END ==
LOC: PNWHC3 08:54
PROVIDERS: ATTEND Specialist
DX: M51.37 Other intervertebral disc degeneration, lumbosacral region (principal); M47.817 Spondylosis without myelopathy or radiculopathy, lumbosacral region; G89.29 Other chronic pain; M46.1 Sacroiliitis, not elsewhere classified; Z79.82 Long term (current) use of aspirin; Z88.8 Allergy status to other drugs, medicaments and biological substances; Z91.048 Other nonmedicinal substance allergy status; Z88.5 Allergy status to narcotic agent
CPT/HCPCS: 99211

== ENCOUNTER 2022-09-05 07:36 | Day surgery (SDC) | payer MEDICARE, OTHER ==
[2022-09-05] MEDS ORDERED: LACTATED RINGERS 1,000 ML IV SCH (08:00)
[2022-09-05 08:12] VITALS: TEMP 98.4
[2022-09-05] MEDS ORDERED: ROPIVACAINE 5 MG/ML 20 ML AMPULE ONE (08:17)
[2022-09-05] MEDS ORDERED: TRIAMCINOLONE ACETONIDE 40 MG/ML 1 ML VIAL ONE (08:17)
--- NOTE | 2022-09-05 08:28 | P.PCN ---
Date of Procedure: 09/05/22 Description of Procedure: Pre and postop diagnosis: Myofascial pain syndrome Procedure: Trigger point injections X 9 Muscle group X left side lumbar paraspinal muscles, gluteus mickey and iliocostal lumborum muscle Surgeon: Joe Robles Anesthesia: None Complications: None Estimated blood loss: None Specimen removed: None Procedure indications: Patient had a history of myofascial pain syndrome. Patient tried conservative therapy. Came here for intervention procedure for better pain relief. Procedure description: Patient was seen and identified in the holding area risk benefits competitions alternative discussed with the patient. Patient agreed to proceed for the procedure signed the consent. Patient taken to the procedure area. Timeout was completed. A total number of 2 - trigger point area was marked with a sterile marker. After ChloraPrep used to clean the area. Critical pause was taken. Using 25-gauge 1-1/2 inch needle b[address] half way. Needle entered in each market site 1.5 mL of block solution injected at each level. The block solution containing 13 ml of 0.5% preservative-free ropivacaine with Kenlog 40 MG. Needle removed intact skin cleaned and Band-Aid applied. Patient tolerated the procedure well. Disposition: Patient discharge home after meeting the discharge criteria from the recovery. Patient scheduled to follow up with the pain clinic in 4 weeks for follow-up visit.
[2022-09-05 08:39] VITALS: BP 129/80; PULSE 80; RESP 16
== END 2022-09-05 08:43 | disposition home or self-care (01) ==
LOC: ORPAIN 07:36
DX: M79.18 Myalgia, other site (principal); J44.9 Chronic obstructive pulmonary disease, unspecified; I48.19 Other persistent atrial fibrillation; K21.9 Gastro-esophageal reflux disease without esophagitis; E78.5 Hyperlipidemia, unspecified; Z79.82 Long term (current) use of aspirin; Z86.73 Personal history of transient ischemic attack (TIA), and cerebral infarction without residual deficits; Z79.899 Other long term (current) drug therapy; Z98.890 Other specified postprocedural states
CPT/HCPCS: 20553; J3301; J2795

== ENCOUNTER → 2022-09-25 | Outpatient (CLI) | payer MEDICARE, OTHER ==
[2022-09-25 09:36] VITALS: BP 151/80; PULSE 76; RESP 18; TEMP 97.9
--- NOTE | 2022-09-25 14:28 | P.PAINPG ---
PQRS Measure Charge Sheet Comment: A 77 yr old female with a history of severe and chronic LBP secondary to lumbar DDD and spondylosis with facet arthropathy without myelopathy, BL Sacroiliitis presents today for evaluation s/p L Lumbar TPIs. Pt states she experienced 80 % pain relief x 3 wks s/p procedure. Pain level is provoked at 9 /10 in intensity, constant, localized in the R lumbar spine where it meets the tailbone, dull/ achy in character w shooting towards the hips, L >R. Pain is provoked by sitting for periods of 1 hr or more. Pain is alleviated with PT w massage x 6 wks Mar 2022, heat, meds, topicals, sitting on a heating pad, repositioning and rest. Oswestry axial pain score of 24. Interventional pain procedures completed include BL SI injections, BL Lumbar TPIs Patient is currently on Tyl Patient denies any side effects of the medication(s), denies excessive drowsiness or sleepiness, denies suicidal ideation and reports that the current pain medication is helping to control the pain and improve activities of daily living. Patient denies any motor or sensory deficits. Patient denies any fever or night sweats, denies any change in the bowel movements or urination. Physical Examination: -Constitutional: Cooperative. Not in acute distress . - Neurologic: Cranial nerve II to XII intact. No focal neurological defi cits. - Psychatric: Alert & oriented x 3. Matching mood & appropriate affect. Judgment and insight intact. - Musculoskeletal: Cervical spine: Muscle bulk/ tone/ strength in the bilateral upper extremities normal Vertebral body tenderness to palpation over Spurling test positive Distraction test positive Facet loading test positive TTP Thoracic spine Muscle bulk / tone/ strength in the bilateral paraspinal muscles normal Vertebral body tender to palpation over Facet loading test positive TTP Lumbar spine: Motor bulk/ tone/ strength lower extremities , thigh and legs : 5/5 Deep tendon reflexes : Normal Knee Jerk. Normal Ankle Jerk . Vertebral body tenderness to palpation over Aden Test positive Taut bands w twitch response over R L3-S2 Lumbar Facet Loading Test positive Straight Leg Raise: positive at 30 degrees right side/ left side Gaenslen's Test positive Sacral spine : Severe tenderness over the Sacroiliac joint: right side / left side Range of motion: Flexion of the lumbar spine <60 degrees Range of motion: Extension of the lumbar spine <20 degrees Gaenslen's Test positive right side / left side Manoj test: positive right side / left side Thigh Thrust Test positive right side / left side Sacral Thrust Test positive right side / left side Assessment and plan: Chronic LBP secondary to lumbar DDD, spondylosis with facet arthropathy without myelopathy, BL Sacroiliitis Recommendation of R TPIs L3-S2. May need a series of injections for optimal pain relief. Risks, benefits of procedure discussed and pt verbalized understanding. Admits to anticoagulant use or medical history of diabetes. Protocol for discontinuation/ continuation of medications romi procedure discussed. Minimal anesthesia provided, if clinically indicated, consisting of Versed and Fentanyl. All questions answered. I have spent less than 30 minutes on patient care today. Dr Tang was available by phone for the evaluation of this patient. The time was used to review the medical records including relevant urine studies and Prescription history (MAPs), review of the available imaging, evaluation and examination of the patient, coordination of care with the medical staff and if applicable r eferring physicians, as well as creation of the medical record PQRS Narrative: Hx Alcohol Use (MH) Yes Home Medications: Ambulatory Orders Arformoterol Tartrate [Brovana] 15 mcg INHALATION BID 01/06/20 Atorvastatin [Lipitor] 80 mg PO HS 01/06/20 Calcium Carbonate [Calcium] 1,200 mg PO DAILY 01/06/20 Fluticasone Nasal [place] [Flonase Nasal [place]] 1 spray EA NOSTRIL DIRECTED PRN 01/06/20 Pantoprazole [Protonix] 40 mg PO AC-SUPPER 01/06/20 Yupelri 3 mg INHALATION DAILY 01/30/20 Acetaminophen Tab [Tylenol] 650 mg PO BID PRN 11/04/20 Budesonide [Pulmicort] 0.5 mg INHALATION BID 06/09/21 Metoprolol Succinate (ER) [Toprol XL] 100 mg PO HS 06/09/21 Montelukast [Singulair] 10 mg PO HS 06/09/21 amLODIPine [Norvasc] 5 mg PO HS 06/09/21 Adalimumab [Humira(Cf) Pen] 40 mg SQ Q14D 08/12/21 Ferrous Sulfate [Iron] 325 mg PO DAILY 08/12/21 Loratadine-Pseudoeph 10-240 mg [Claritin-D 24 Hour] 1 tab PO DAILY 10/03/21 Amitriptyline HCl 25 mg PO HS 02/03/22 Aspirin 81 mg PO HS 02/03/22 Ezetimibe [Zetia] 10 mg PO HS 07/19/22 Apixaban [Eliquis] 5 mg PO BID 09/05/22 Controlled Substance Measures - Controlled Substance Measures Is patient prescribed a controlled substance at discharge?: No
== END ==
LOC: PNWHC3 08:10
PROVIDERS: ATTEND Specialist
DX: M51.37 Other intervertebral disc degeneration, lumbosacral region (principal); M47.817 Spondylosis without myelopathy or radiculopathy, lumbosacral region; G89.29 Other chronic pain; Z79.82 Long term (current) use of aspirin; Z91.048 Other nonmedicinal substance allergy status; Z88.5 Allergy status to narcotic agent; Z88.8 Allergy status to other drugs, medicaments and biological substances
CPT/HCPCS: 99211

== ENCOUNTER 2022-10-17 09:19 | Day surgery (SDC) | payer MEDICARE, OTHER ==
[2022-10-12 09:46] VITALS: BMI 32.9
[~2022-10-17 09:19] MED LIST changes: -DEXAMETHASONE SOD PHOSPHATE 4 MG/ML 1 ML VIAL IV ONE; -MIDAZOLAM 2 MG/2 ML VIAL IV PRN; -ONDANSETRON 4 MG/2 ML VIAL IVP ONE; -Pre Op ABX Message 1 EACH MISC MISCELLANE ONE; -fentaNYL (PF) 50 MCG/ML 2 ML AMP IV PRN
[2022-10-17 09:50] VITALS: RESP 16; TEMP 97.8
[2022-10-17] MEDS ORDERED: ROPIVACAINE 5 MG/ML 20 ML AMPULE ONE (09:59)
[2022-10-17] MEDS ORDERED: methylPREDNISolone ACETATE 40 MG/ML 1 ML VIAL ONE (09:59)
--- NOTE | 2022-10-17 10:04 | P.PCN ---
Date of Procedure: 10/17/22 Procedure(s) Performed: Procedure= trigger point injections lumbar paraspinal muscles bilaterally , 4 on the right side from L2 to S1. Preoperative diagnosis= 1-myofascial pain syndrome lumbar paraspinal muscles Postoperative diagnosis=Same as preop Diagnosis . Complication = none Condition= stable Anesthesia= Indication for the procedure= patient complaining of low back pain , examination was positive for multiple trigger point in the lumbar paraspinal muscles bilaterally and patient diagnosed with myofascial pain syndrome and is here to have trigger point injections Description of the procedure= procedure risk and benefits discussed with the patient, including but not limited, risk of infection and bleeding, and ALLERGIC reaction to the medication and not complete pain relief and patient agreed with the preceding patient taken to the operating room, placed in sitting position or standard monitors applied to the patient then after induction of anesthesia back prepped with chlorhexidine 3 times , then under sterile technique each of the trigger point that was marked in the preop holding area 4 on the right side lumbar paraspinal muscles , each one of them injected with the 2 mL of the mixture of ropivacaine 0.5% 8 ML mixed with 40 mg of Depo-Medrol and 2 mL of the mixture injected at each trigger point after negative aspiration, using 25-gauge needle, injection done after negative aspiration under was no paresthesia during the injection patient tolerated the procedure well without any complications and he will follow up in the pain clinic in a few weeks
[2022-10-17 10:25] VITALS: BP 155/78; PULSE 75
== END 2022-10-17 10:29 | disposition home or self-care (01) ==
LOC: ORPAIN 09:19
PROVIDERS: ATTEND Specialist
DX: M79.18 Myalgia, other site (principal)
CPT/HCPCS: 20553; J1030; J2795

== ENCOUNTER → 2022-11-08 | Outpatient (CLI) | payer MEDICARE, OTHER ==
[2022-11-08 10:20] VITALS: BP 127/83; PULSE 81; RESP 16; TEMP 98.2
--- NOTE | 2022-11-08 15:11 | P.PAINPG ---
PQRS Measure Charge Sheet Comment: A 77 yr old female with a history of severe and chronic LBP secondary to post laminectomy syndrome, BL Sacroiliitis presents today for evaluation s/p R Lumbar TPIs. Pt states she experienced 80% pain relief x 2 days s/p procedure. Pain level is provoked at 8 /10 in intensity, constant, localized in the R lumbar spine where it meets the tailbone, sharp in character L & R of midline without radiation. Pain is provoked by sitting for periods of 1 hr or more. Pain is alleviated with PT w massage x 12 wks Mar 2022, heat, meds, topicals, sitting on a heating pad, repositioning and rest. Oswestry axial pain score of 20. Interventional pain procedures completed include BL SI injections, BL Lumbar TPIs x2 Patient is currently on Tyl, Ibu, Biofreeze gel Patient denies any side effects of the medication(s), denies excessive drowsiness or sleepiness, denies suicidal ideation and reports that the current pain medication is helping to control the pain and improve activities of daily living. Patient denies any motor or sensory deficits. Patient denies any fever or night sweats, denies any change in the bowel movements or urination. Physical Examination: -Constitutional: Cooperative. Not in acute distress . - Neurologic: Cranial nerve II to XII intact. No focal neurological deficits. - Psychatric: Alert & oriented x 3. Matching mood & appropriate affect. Judgment and insight intact. - Musculoskeletal: Cervical spine: Muscle bulk/ tone/ strength in the bilateral upper extremities normal Vertebral body tenderness to palpation over Spurling test positive Distraction test positive Facet loading test positive TTP Thoracic spine Muscle bulk / tone/ strength in the bilateral paraspinal muscles normal Vertebral body tender to palpation over Facet loading test positive TTP Lumbar spine: Motor bulk/ tone/ strength lower extremities , thigh and legs : 5/5 Deep tendon reflexes : Normal Knee Jerk. Normal Ankle Jerk . Vertebral body tenderness to palpation over Aden Test positive Lumbar Facet Loading Test positive over BL L4-L5, L5-S1 Straight Leg Raise: positive at 30 degrees right side/ left side Gaenslen's Test positive Sacral spine : Severe tenderness over the Sacroiliac joint: right side / left side Range of motion: Flexion of the lumbar spine <60 degrees Range of motion: Extension of the lumbar spine <20 degrees Gaenslen's Test positive right side / left side Manoj test: positive right side / left side Thigh Thrust Test positive right side / left side Sacral Thrust Test positive right side / left side Assessment and plan: Chronic LBP secondary to post laminectomy syndrome Recommendation of SCS Trial. Behavioral health eval script provided Dx: G89.4, M54.16. All questions answered. I have spent less than 30 minutes on patient care today. Dr Tang was available by phone for the evaluation of this patient. The time was used to review the medical records including relevant urine studies and Prescription history (MAPs), review of the available imaging, evaluation and examination of the patient, coordination of care with the medical staff and if applicable referring physicians, as well as creation of the medical record PQRS Narrative: Hx Alcohol Use (MH) No Home Medications: Ambulatory Orders Arformoterol Tartrate [Brovana] 15 mcg INHALATION BID 01/06/20 Atorvastatin [Lipitor] 80 mg PO HS 01/06/20 Calcium Carbonate [Calcium] 1,200 mg PO DAILY 01/06/20 Fluticasone Nasal [place] [Flonase Nasal [place]] 1 spray EA NOSTRIL DIRECTED PRN 01/06/20 Pantoprazole [Protonix] 40 mg PO AC-SUPPER 01/06/20 Yupelri 3 mg INHALATION DAILY 01/30/20 Acetaminophen Tab [Tylenol] 650 mg PO BID PRN 11/04/20 Budesonide [Pulmicort] 0.5 mg INHALATION BID 06/09/21 Metoprolol Succinate (ER) [Toprol XL] 100 mg PO HS 06/09/21 Montelukast [Singulair] 10 mg PO HS 06/09/21 amLODIPine [Norvasc] 5 mg PO DAILY 06/09/21 Adalimumab [Humira(Cf) Pen] 40 mg SQ Q14D 08/12/21 Ferrous Sulfate [Iron] 325 mg PO DAILY 08/12/21 Loratadine-Pseudoeph 10-240 mg [Claritin-D 24 Hour] 1 tab PO DAILY 10/03/21 Amitriptyline HCl 25 mg PO HS 02/03/22 Aspirin 81 mg PO HS 02/03/22 Ezetimibe [Zetia] 10 mg PO HS 07/19/22 Apixaban [Eliquis] 5 mg PO BID 09/05/22 Arformoterol Tartrate 15 mcg IH BID 10/12/22 Controlled Substance Measures - Controlled Substance Measures Is patient prescribed a controlled substance at discharge?: No
== END ==
LOC: PNWHC3 08:48
PROVIDERS: ATTEND Specialist
DX: G89.4 Chronic pain syndrome (principal); M96.1 Postlaminectomy syndrome, not elsewhere classified; Z79.82 Long term (current) use of aspirin; Z88.8 Allergy status to other drugs, medicaments and biological substances; Z88.5 Allergy status to narcotic agent; Z91.048 Other nonmedicinal substance allergy status
CPT/HCPCS: 99211

== ENCOUNTER → 2022-12-04 | Outpatient (CLI) | payer MEDICARE, OTHER ==
[2022-12-04 07:53] VITALS: BP 119/65; PULSE 82; RESP 14
--- NOTE | 2022-12-04 14:43 | P.PAINPG ---
PQRS Measure Charge Sheet Comment: A 77 yr old female with a history of severe and chronic LBP secondary to post laminectomy syndrome, BL Sacroiliitis presents today for evaluation. Pain level is provoked at 9 /10 in intensity, constant, localized in the R lumbar spine where it meets the tailbone, sharp in character L & R of midline without radiation. Pain is provoked by standing, sitting for periods of 1 hr or more. Pain is alleviated with PT w massage x 12 wks Apr 2022, chiropractic treatments years ago, heat, meds, topicals, sitting on a heating pad, repositioning and rest. Oswestry axial pain score of 20. Interventional pain procedures completed include BL SI injections, BL Lumbar TPIs x2 Patient is currently on Tyl, Ibu, Biofreeze gel Patient denies any side effects of the medication(s), denies excessive drowsiness or sleepiness, denies suicidal ideation and reports that the current pain medication is helping to control the pain and improve activities of daily living. Patient denies any motor or sensory deficits. Patient denies any fever or night sweats, denies any change in the bowel movements or urination. Physical Examination: -Constitutional: Cooperative. Not in acute distress . - Neurologic: Cranial nerve II to XII intact. No focal neurological deficits. - Psychatric: Alert & oriented x 3. Matching mood & appropriate affect. Judgment and insight intact. - Musculoskeletal: Cervical spine: Muscle bulk/ tone/ strength in the bilateral upper extremities normal Vertebral body tenderness to palpation over Spurling test positive Distraction test positive Facet loading test positive TTP Thoracic spine Muscle bulk / tone/ strength in the bilateral paraspinal muscles normal Vertebral body tender to palpation over Facet loading test positive TTP Lumbar spine: Motor bulk/ tone/ strength lower extremities , thigh and legs : 5/5 Deep tendon reflexes : Normal Knee Jerk. Normal Ankle Jerk . Vertebral body tenderness to palpation over Aden Test positive Lumbar Facet Loading Test positive over BL L4-L5, L5-S1 Straight Leg Raise: positive at 30 degrees right side/ left side Gaenslen's Test positive Sacral spine : Severe tenderness over the Sacroiliac joint: right side / left side Range of motion: Flexion of the lumbar spine <60 degrees Range of motion: Extension of the lumbar spine <20 degrees Gaenslen's Test positive right side / left side Manoj test: positive right side / left side Thigh Thrust Test positive right side / left side Sacral Thrust Test positive right side / left side Assessment and plan: Chronic LBP secondary to post laminectomy syndrome Recommendation of SCS Trial. Behavioral health eval report received Dx: G89.4, M54.16. Institute 5/325mg #15 NR Use, side effects adverse reactions and safe storage discussed. Pt acknowledged understanding. All questions answered. I have spent less than 30 minutes on patient care today. Dr Tang was available by phone for the evaluation of this patient. The time was used to review the medical records including relevant urine studies and Prescription history (MAPs), review of the available imaging, evaluation and examination of the patient, coordination of care with the medical staff and if applicable referring physicians, as well as creation of the medical record - Pain Location Bilateral Lower Back Non-Pharmacological Interventions: Heat, Inactivity, Physical Therapy, Position/Reposition, Sitting Pharmacological Interventions: Block, Epidural, PRN Medication, Topical Medication PQRS Narrative: Hx Alcohol Use (MH) No Home Medications: Ambulatory Orders Arformoterol Tartrate [Brovana] 15 mcg INHALATION BID 01/06/20 Atorvastatin [Lipitor] 80 mg PO HS 01/06/20 Calcium Carbonate [Calcium] 1,200 mg PO DAILY 01/06/20 Fluticasone Nasal Hamlin [Flonase Nasal Hamlin] 1 spray EA NOSTRIL DIRECTED PRN 01/06/20 Pantoprazole [Protonix] 40 mg PO AC-SUPPER 01/06/20 Yupelri 3 mg INHALATION DAILY 01/30/20 Acetaminophen Tab [Tylenol] 650 mg PO BID PRN 11/04/20 Budesonide [Pulmicort] 0.5 mg INHALATION BID 06/09/21 Metoprolol Succinate (ER) [Toprol XL] 100 mg PO HS 06/09/21 Montelukast [Singulair] 10 mg PO HS 06/09/21 amLODIPine [Norvasc] 5 mg PO DAILY 06/09/21 Adalimumab [Humira(Cf) Pen] 40 mg SQ Q14D 08/12/21 Ferrous Sulfate [Iron] 325 mg PO DAILY 08/12/21 Loratadine-Pseudoeph 10-240 mg [Claritin-D 24 Hour] 1 tab PO DAILY 10/03/21 Amitriptyline HCl 25 mg PO HS 02/03/22 Aspirin 81 mg PO HS 02/03/22 Ezetimibe [Zetia] 10 mg PO HS 07/19/22 Apixaban [Eliquis] 5 mg PO BID 09/05/22 Arformoterol Tartrate 15 mcg IH BID 10/12/22 HYDROcodone/APAP 5-325MG [Institute 5-325] 1 tab PO Q4HR PRN 3 Days #15 tab 12/04/22 Controlled Substance Measures - Controlled Substance Measures Is patient prescribed a controlled substance at discharge?: Yes When asked, does pt state using other controlled substances?: No If prescribed controlled substance>3 days was MAPS reviewed?: Prescribed <3 Days
== END ==
LOC: PNWHC3 07:28
PROVIDERS: ATTEND Specialist
DX: M51.37 Other intervertebral disc degeneration, lumbosacral region (principal); M47.817 Spondylosis without myelopathy or radiculopathy, lumbosacral region; G89.29 Other chronic pain; Z79.82 Long term (current) use of aspirin; Z88.5 Allergy status to narcotic agent; Z91.048 Other nonmedicinal substance allergy status; Z88.8 Allergy status to other drugs, medicaments and biological substances
CPT/HCPCS: 99211

== ENCOUNTER 2022-12-28 12:01 | Day surgery (SDC) | payer MEDICARE, OTHER ==
[2022-12-28 12:31] LABS: Glucose,Whole Blood 109 mg/dL (70-110)
[2022-12-28 12:33] VITALS: RESP 16; TEMP 97.6
[2022-12-28] MEDS ORDERED: fentaNYL (PF) 50 MCG/ML 2 ML AMP ONE (13:27)
[2022-12-28] MEDS ORDERED: MIDAZOLAM 2 MG/2 ML VIAL ONE (13:27)
[2022-12-28] MEDS ORDERED: ROPIVACAINE 5MG/ML 20ML VIAL ONE (13:27)
--- NOTE | 2022-12-28 14:27 | P.PCN ---
Date of Procedure: 12/28/22 Procedure(s) Performed: PROCEDURES: 1- spinal cord stimulator trial under fluoroscopic guidance X2 lead (Fluoroscopy images stored on file in radiology department ) 2- complex programing of the spinal cord stimulator . PREOPERATIVE DIAGNOSIS: 1-lumbar spondylosis with lumbar facet arthropathy without myelopathy. 2-lumbar degenerative disc disease. 3-postlaminectomy pain syndrome lumbar area 4-sacroiliitis POSTOPERATIVE DIAGNOSIS: 1-same as preoperative diagnoses. ANESTHESIA: Moderate sedation with Versed 2 mg and fentanyl 50 g, sedation is start time 1327, end time 1423 BLOOD LOSS: Minimal. COMPLICATIONS: None. PROCEDURE INDICATIONS: The patient with a history of severe intractable low back pain who failed more conservative treatment measures. Patient had multiple pain interventions procedure and she got short-term benefit from it, discussed with the patient the option of referring her to have surgical spine intervention and she refused to have any spine surgery, patient was a candidate for spinal cord stimulator and she had the psychological testing done and showed that there is no contraindication for the spinal cord stimulator, patient is not interested in having any lumbar surgery PROCEDURE DESCRIPTION: The patient was seen and identified in the preoperative area. Risks, benefits, complications, and alternatives were discussed with the patient. The patient agreed to proceed with the procedure and signed the consent. IV was started.Patient was taken to the operating room and time out was performed. She received 2 gram of IV for prophylactic antibitics before the start of the procedure. The Thoracic and lumbar areas were prepped with Druaprep x2 and draped in the usual sterile fashion. Using sterile gowns and gloves, and after covering the fluoroscopic camera with a sterile drape, the procedure was proceeded on with. The fluoroscopic camera was placed in the AP position, and the L1-2 interlaminar space was identified and localized in the left paramedian trajectory with ropivacaine 0.5% 10 ml . Under fluoroscopic guidance, a 14 gauge epimed 6 inches long epidural needle from the [employer] spinal cord stimulator kit was guided into the interlaminar space. Then using the right oblique fluoroscopy, anterior-posterior fluoroscopy, and [id number] technique, the epidural space was accessed. The first lead (8 contacts leads from [employer] ) was passed and noted to be in the dorsal portion of the epidural space in the lateral view. Then using anterior-posterior view, the first lead was passed up to the top of T8 vertebra. Subsequently, a second 14 gauge Tuohy epidural needle was inserted just posterior to the first needle and was advanced toward the epidural space in a parallel direction to the first needle. Then using lateral fluoroscopy, anterior-posterior fluoroscopy, and [id number] technique, the epidural space was accessed by the second needle into the same interlaminar space as the first needle. Then a second similar lead was passed and noted to be in the dorsal portion of the epidural space in the lateral view. Then using anterior- posterior view, the second lead was passed up to the top of T9 vertebra, and was left in a parallel position to the first lead. Subsequently, the leads were tested and they gave good stimulation on the low back area and the lower extremity , then after that the needle was removed and both legs secured using 3-0 silk, and then the dressing applied durind the procedure ,we performed complex programing of the spinal cord stimulator ,we changed pulse width ,amplitude and the frequencey of the stimulation and we got good coverage for the painful area ,the parasthesia overlaped the painfull area ,patients was satesfied withe the stimulation ,we got more than 80 % decrease in the pain level COMPLICATIONS: No acute complications. COMMENTS: Each lead used had 8 contacts with a total of 16 contacts used. DISPOSITION / PLANS: The patient was placed in a supine position and transferred to the recovery area in a stable condition for observation. There was no evidence of lower extremity motor or sensory deficit after the procedure. Patient was discharged from the recovery room after meeting discharge criteria. Home discharge instructions were given to the patient by the staff. The patient was reexamined prior to discharge. Past those of Loretta taken more than 72 hours ago
--- NOTE | 2022-12-28 15:13 | FL ---
EXAMINATION TYPE: FL guidance operating room DATE OF EXAM: 12/28/2022 HISTORY: Fluoroscopy time Total dose area product (DAP) in uGy*m?, mGy*cm? (or similar): 0.82852 IMPRESSION: 1. Fluoroscopy time.
[2022-12-28 16:07] VITALS: BP 148/75; PULSE 75
== END 2022-12-28 16:06 | disposition home or self-care (01) ==
LOC: ORPAIN 12:01
PROVIDERS: ATTEND Specialist
DX: M46.1 Sacroiliitis, not elsewhere classified (principal); M51.16 Intervertebral disc disorders with radiculopathy, lumbar region; M47.816 Spondylosis without myelopathy or radiculopathy, lumbar region; Z79.01 Long term (current) use of anticoagulants; Z79.82 Long term (current) use of aspirin
CPT/HCPCS: 99152; 99153; 63650; J2250; J3010; J2795; C1897; C1883

== ENCOUNTER → 2023-01-04 | Outpatient (CLI) | payer MEDICARE, OTHER ==
[2023-01-04 11:18] VITALS: BP 161/106; PULSE 125; RESP 17; TEMP 98.4
--- NOTE | 2023-01-04 16:23 | P.PN ---
Progress Note - Text Progress Note Date: 01/04/23 This is a follow-up visit this 77 years old female with a history of chronic pain syndrome, diagnosed with postlaminectomy pain syndrome lumbar area, lumbar degenerative disc disease, lumbar spondylosis with lumbar facet arthropathy, last week with done spinal cord stimulator trial , and she is here today to discuss the results of the trial and also for removal of the spinal cord stimulator leads, she reported that she got 100% pain relief during the trial period which is lasted one week, he was able to ambulate better, her activity of daily living improved significantly, she wants to proceed with the permanent implant of the spine caused some later leads and spine colostomy later generat or, and today under sterile technique was able to remove the spinal cord stimulatorx2 leads , the sites look okay. There is no sign of bleeding no sign of infection or hematoma or erythema, tip of the leads intact, and the dressing applied, to follow up in the pain clinic the day of the procedure which will be perminent implantation, the spinal cord stimulator leads and generator. Patient stopped taking her liquids for more than 3 days
== END ==
LOC: PNWHC3 10:27
PROVIDERS: ATTEND Specialist
DX: G89.4 Chronic pain syndrome (principal); M54.16 Radiculopathy, lumbar region; Z88.8 Allergy status to other drugs, medicaments and biological substances; Z91.048 Other nonmedicinal substance allergy status; Z88.5 Allergy status to narcotic agent; Z79.82 Long term (current) use of aspirin
CPT/HCPCS: 99211